=== PATIENT | male | born 1960 | race Caucasian/White ===

== ENCOUNTER 2020-02-01 14:16 | Outpatient (CLI) | payer OTHER, SELFPAY ==
--- NOTE | 2020-02-01 14:21 | ECHO_ITS ---
Patient Info Name: Prieto Ivan Age: 59 years : 1960 Gender: Male Ht: 72 in Wt: 260 lbs BSA: 2.49 m2 HR: 66 bpm BP: 181 / 91 mmHg Technical Quality: Good Exam Date: 02/01/2020 3:30 PM Exam Location: [facility] Patient Status: Outpatient Admit Date: 02/01/2020 Staff Ordering Physician: Huan Holloway DO Pipe Fitter Marine: Nithin Hendricks, ANTHONY, RT Attending Provider: Huan Holloway DO Referring Physician: Jewel JEAN; Exam Type: CA echo dop color flow w con Study Info Indications R06.00 - Dyspnea, unspecified Complete two-dimensional, color flow and Doppler transthoracic echocardiogram is performed. Strain analysis performed. Summary 1. Complete two-dimensional, color flow and Doppler transthoracic echocardiogram is performed. 2. Left ventricular chamber dimension is normal. 3. Left ventricular systolic function is normal, estimated at 60-65%. 4. There is mildly increased left ventricular wall thickness. 5. The left ventricular diastolic function is grade I diastolic dysfunction. 6. E/e' 10 is mildly elevated. 7. Global longitudinal strain is mildly abnormal at -16.5%. 8. No pulmonary hypertension, estimated pulmonary arterial systolic pressure is 36 mmHg. Left Ventricle E/e' 10 is mildly elevated. Global longitudinal strain is mildly abnormal at -16.5%. Left ventricular chamber dimension is normal. Left ventricular systolic function is normal, estimated at 60-65%. There is mildly increased left ventricular wall thickness. The left ventricular diastolic function is grade I diastolic dysfunction. Right Ventricle Right ventricular chamber dimension is normal. Right ventricular systolic function is normal. Left Atria Left atrial chamber dimension is normal. Right Atria Right atrial chamber dimension is normal. Aortic Valve The aortic valve is trileaflet. There is no aortic valve stenosis. There is no aortic valve regurgitation. Pulmonic Valve There is no pulmonic regurgitation. Mitral Valve There is no mitral valve stenosis. There is no mitral valve regurgitation. Tricuspid Valve There is no tricuspid valve regurgitation. No pulmonary hypertension, estimated pulmonary arterial systolic pressure is 36 mmHg. Pericardium/Pleural There is no pericardial effusion. Inferior Vena Cava Normal inferior vena cava with >50% collapse upon inspiration consistent with normal right atrial pressure, 5 mmHg. Aorta The aortic root size at the sinus of Valsalva is normal. Left Ventricular Outflow Tract Name Value Normal LVOT 2D LVOT Diameter 2.21 cm LVOT Doppler LVOT Peak Velocity 116.79 cm/s LVOT Peak Gradient 5 mmHg LVOT Mean Gradient 3 mmHg LVOT VTI 24.94 cm LVOT VTI/AV VTI Ratio 0.89 LVOT Stroke Volume 95.98 ml Mitral Valve Name Value Normal
== END 2020-02-01 14:17 | disposition home or self-care (01) ==
LOC: CHSIMG 14:17
PROVIDERS: PCP Internal Medicine; Visit Provider Internal Medicine Cardiovascular Disease
DX: R06.00 Dyspnea, unspecified (principal)
CPT/HCPCS: C8929

== ENCOUNTER 2020-04-18 10:47 | Outpatient (CLI) | payer OTHER, SELFPAY ==
[2020-04-19 19:17] LABS: SARS-CoV-2 RNA PCR Negative
== END 2020-04-18 10:48 | disposition home or self-care (01) ==
LOC: CHSLAB 10:50
PROVIDERS: PCP Internal Medicine
DX: M18.0 Bilateral primary osteoarthritis of first carpometacarpal joints (principal); Z20.822 Contact with and (suspected) exposure to COVID-19
CPT/HCPCS: C9803; U0003; U0005

== ENCOUNTER 2020-08-02 09:03 | Outpatient (CLI) | payer OTHER, SELFPAY ==
[2020-08-02 09:53] LABS: SARS-CoV-2 RNA PCR Negative (Negative)
== END 2020-08-02 09:04 | disposition home or self-care (01) ==
LOC: CHSLAB 09:07
PROVIDERS: PCP Internal Medicine
DX: M18.12 Unilateral primary osteoarthritis of first carpometacarpal joint, left hand (principal); Z20.822 Contact with and (suspected) exposure to COVID-19
CPT/HCPCS: C9803; U0003; U0005

== ENCOUNTER 2021-01-15 13:09 | Outpatient (RCR) | payer OTHER, SELFPAY ==
--- NOTE | 2021-01-15 14:02 | PTOPEVAL ---
Thank you for referring Prieto Ivan to [facility] The patient is scheduled to be seen for therapy? ____x/week for ___ weeks. Please review, sign, date and return this plan of care KENNY. I agree with and certify that the following plan of care is medically necessary. Referring Physician Date Admitting Provider: Attending Provider: Nurys Jacobsen, PIPE BLANKS CUT OFF SAW OPERATOR Referring Provider: *PT Outpatient Evaluation Start: 01/15/21 13:13 Freq: Status: Active Protocol: Document 01/15/21 13:14 [facility] (Rec: 01/15/21 14:01 [facility] [id number]) Therapy Assessment Status Assessment Status Assessment Status Evaluation Evaluation Information Problem Diagnosis lumbago and neck pain Onset 12/20/20 Additional Evaluation Detail oswestry = 37% functionally declined Subjective Information patient reports he has been Query Text:As Reported By Patient/ having pain in the lower back Family and down bilateral buttocks and into the posterior thighs for about 3 weeks. he reports the pain began after returning to work from some time off. 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 he reports he has increased pain with walking and steps. he reports lifting also causes increased pain in the back. patient reports he had injections to the lower back yesterday. he reports he does have some stiffness in the neck. Prior Level of Function Comments Additional Prior Level of Function patient reports prior to 2-3 Comments weeks ago he was having intermittent tightness, but no constant pain, and was not as painful as it is currently. Pain Assessment Timing of Pain Assessment Timing of Pain Assessment Assessment Pain Scale Pain Scale Used Numeric (1 - 10) Self Report Pain Assessment Lower Back Reported Pain Level 4 Pain Radiation Left Leg,Right Leg Pain Frequency Acute,Continuous Pain Score Pain Score 4: Self Report Additional Pain Score Comments patient reports no pain, but tightness in the cervical spine. Interventions Used Interventions Used By Clinicians Activity or ADL's,Education, Exercise Cervical and Lumbar ROM Cervical R
== END 2021-01-15 14:09 | disposition home or self-care (01) ==
LOC: CHSPT 13:09
PROVIDERS: PCP Nurse Practitioner Family; Visit Provider Nurse Practitioner Family
DX: M54.50 Low back pain, unspecified (principal); M54.2 Cervicalgia
CPT/HCPCS: 97014; 97110; 97161; G0283

== ENCOUNTER 2021-05-20 12:16 | Outpatient (CLI) | payer OTHER, SELFPAY ==
[2021-05-20 13:09] LABS: SARS-CoV-2 RNA PCR Negative (Negative)
== END 2021-05-20 12:17 | disposition home or self-care (01) ==
LOC: CHSLAB 12:19
PROVIDERS: Visit Provider Orthopaedic Surgery Orthopaedic Surgery of the Spine
DX: Z01.818 Encounter for other preprocedural examination (principal); Z20.822 Contact with and (suspected) exposure to COVID-19
CPT/HCPCS: C9803; U0003; U0005

== ENCOUNTER 2022-01-23 08:17 | Outpatient (RCR) | payer OTHER, SELFPAY ==
--- NOTE | 2022-01-23 08:07 | PTOPEVAL1 ---
Assessment and note entered by JT File, PT Evaluation Information Assessment Status Evaluation Diagnosis s/p L OA Onset 10/21/21 Subjective Information patient reports he is on a 5lb lifting restriciton for 3 months from surgery. he reports he is having difficulty reaching behind his back, and turning the steering wheel across his body in the L arm. he reports he also reports he feels weak in the L arm with lifting and lowering to the side . he reports the side lifting is accompanied by pain in the L shoulder. patient reports the R shoulder was replaced prior to the L shoulder, and he reports he has no issues. Reported Pain Level Pain Score 2: Self Report Assessment PT Clinical Summary mr. groves presents to skilled PT services 3 months post L TSA. he continues to present with weakness and decreased rom in the L shoulder compared to the R side which has also had a TSA. he is currently under post op restrictions for no L shoulder extension or IR. however, he is allowed to perform AROM and strengthening. he would do well to participate in skilled PT services to improve his objective/functional deficits and improve his quality of life/ability to perform routine daily activities. Plan of Care Interventions Electrical Stimulation,Hot Pack/Cold Pack,Manual Therapy,Neuro Re-education,Patient/Caregiver Educati,Therapeutic Activities,Therapeutic Exercise PT Services Indicated Yes Treatment Frequency and 2x weekly for 10 visits Duration These treatments will address the objective and functional deficits as defined above. The patient will be advanced safely and appropriately in order for the patient to progress towards his/her prior level of function. Additional exercises will be introduced and as well as a comprehensive home exercise program upon discharge, if needed, ?to ensure carryover of functional gains achieved in the clinic. This treatment plan has been reviewed and agreement upon by the patient.
--- NOTE | 2022-01-29 14:13 | PCPTNOTE ---
01/29/22 To Whom It May Concern: Range of motion and strength measurements for Prieto FioreSrikanth Ivan, 60 Shoulder Active Range of Motion: Flexion: Left 145 degrees, Right 156 degrees Abduction: Left 120 degrees, Right 131 degrees External Rotation: Left 70 degrees, Right 68 degrees Internal Rotation: Left not tested due to post op precautions, Right 67 degrees Extension: Left not tested due to post op precautions, Right 60 degrees Shoulder Strength: Flexion: Left 4+/5, Right 4+/5 Abduction: Left 4+/5, Right 4+/5 External Rotation: Left 4/5, Right 4+/5 Internal Rotation: Left (isometric) 4/5, Right 4+/5 Adduction: Left 4+/5, Right 5/5 Extension: Left (isometric) 4/5, Right 5/5
--- NOTE | 2022-02-05 09:08 | PCPTNOTE ---
02/05/22 To Whom It May Concern: Range of motion and strength measurements for Prieto Casimiro Ivan, 60 Shoulder Active Range of Motion (seated): Flexion: Left 145 degrees Abduction: Left 130 degrees External Rotation: Left 70 degrees (at 90 degrees abduction) Internal Rotation: Not tested due to post op precautions Extension: Not tested due to post op precautions Shoulder Strength (Manual Muscle Test): Flexion: Left 4/5, Right 4+/5 Abduction: Left 4-/5, Right 5/5 External Rotation: Left 4-/5, Right 4+/5 Internal Rotation and Extension: Not tested due to post op precautions
--- NOTE | 2022-02-24 09:57 | PTOPPROG ---
Assessment and note entered by Nilda Martin DPT Evaluation Information Assessment Status Progress Diagnosis s/p L OA Onset 10/21/21 Subjective Information Pt reports that his range of motion feels a lot better but that his strength is very limited, as he struggles even to twist a lid off of a jar. He is concerned about returning to work as at work he needs to perform a lot of extension and internal rotation based activities, and he doesn't feel very strong with these motions yet. He also reports he is concerned as he has to lift heavy weights (up to 70 lbs). Pt reports that he sees his MD on 03/18. Assessment PT Clinical Summary Pt presents to PT with significant improvements in strength and range of motion since his last evaluation. While objectively his strength is improving, he is still limited functionally especially as needed for his job. The patient might not be appropriate for returning to work yet as he is still limited functionally. He will benefit from additional skilled PT to further facilitate symptom relief and increase strength objectively and functionally as needed for work and recreational activities. Plan of Care PT Services Indicated Yes Treatment Frequency and 2x week for 6 more visits Duration These treatments will address the objective and functional deficits as defined above. The patient will be advanced safely and appropriately in order for the patient to progress towards his/her prior level of function. Additional exercises will be introduced and as well as a comprehensive home exercise program upon discharge, if needed, ?to ensure carryover of functional gains achieved in the clinic. This treatment plan has been reviewed and agreement upon by the patient.
--- NOTE | 2022-06-02 13:20 | PCPTNOTE ---
Patient was seen for 13 visits from 01/23/22-03/12/22. Patient did not return for remaining follow ups on POC and is being discharged at this time.
== END 2022-03-12 23:59 | disposition home or self-care (01) ==
LOC: CHSPT 08:17
PROVIDERS: Visit Provider Orthopaedic Surgery Orthopaedic Surgery of the Spine
DX: Z48.89 Encounter for other specified surgical aftercare (principal); Z96.60 Presence of unspecified orthopedic joint implant
CPT/HCPCS: 97014; 97110; 97161; G0283

== ENCOUNTER 2022-10-20 09:33 | Outpatient (CLI) | payer OTHER, SELFPAY ==
--- NOTE | 2022-10-20 11:00 | NEURO_ITS ---
Impression: # Complains of numbness of feet. History of bilateral knee surgeries. 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 # Abnormal needle/EMG. Nerve Conduction Studies Anti Sensory Summary Table Stim Site NR Peak (ms) P-T Amp (?V) Site1 Site2 Delta-P (ms) Dist (cm) Ryan (m/s) Left Sup Fibular Anti Sensory (Ant Lat Mall) NO RESPONSE 14 cm NR 14 cm Ant Lat Mall 16.0 Right Sup Fibular Anti Sensory (Ant Lat Mall) NO RESPONSE 14 cm NR 14 cm Ant Lat Mall 16.0 Left Sural Anti Sensory (Lat Mall) NO RESPONSE Calf NR Calf Lat Mall 16.0 Right Sural Anti Sensory (Lat Mall) NO RESPONSE Calf NR Calf Lat Mall 16.0 Motor Summary Table Stim Site NR Onset (ms) O-P Amp (mV) Site1 Site2 Delta-0 (ms) Dist (cm) Ryan (m/s) Left Peroneal Motor (Vastus Med) Ankle 5.5 0.9 Popit Ankle 13.6 44.0 32 Popit 19.1 0.9 Right Peroneal Motor (Vastus Med) Ankle 4.9 1.4 Popit Ankle 10.3 39.0 38 Popit 15.2 1.3 Left Tibial Motor (Abd Yi Brev) Ankle 5.2 0.1 Knee Ankle 14.0 46.0 33 Knee 19.2 0.3 Right Tibial Motor (Abd Yi Brev) NO RESPONSE Ankle NR Knee Ankle 0.0 Knee NR F Wave Studies NR F-Lat (ms) L-R F-Lat (ms) Left Peroneal (Mrkrs) (EDB) 63.13 0.35 Right Peroneal (Mrkrs) (EDB) 63.48 0.35 Left Tibial (Mrkrs) (Abd Hallucis) 62.48 Right Tibial (Mrkrs) (Abd Hallucis) NO RESPONSE NR EMG Side Muscle Nerve Root Ins Act Fibs Amp Dur Recrt Comment Right AntTibialis Dp Br Fibular L4-5 Nml Nml Nml >12ms Reduced Right Gastroc Tibial S1-2 Nml Nml Nml >12ms Reduced Right Fibularis Long Sup Br Fibular L5-S1 Nml Nml Nml >12ms Reduced Right Flex Dig Long Tibial L5-S2 Nml Nml Nml >12ms Reduced Right Ext Dig Brev Dp Br Fibular L5, S1 Nml Nml Nml >12ms Reduced Left AntTibialis Dp Br Fibular L4-5 Nml Nml Nml >12ms Reduced Left Gastroc Tibial S1-2 Nml Nml Nml >12ms Reduced Left Fibularis Long Sup Br Fibular L5-S1 Nml Nml Nml >12ms Reduced Left Flex Dig Long Tibial L5-S2 Nml Nml Nml >12ms Reduced Left Ext Dig Brev Dp Br Fibular L5, S1 Nml Nml Nml >12ms Reduced Left QuadratusFem QuadFemoris L4-5, S1 Nml Nml Nml >12ms Reduced Right QuadratusFem QuadFemoris L4-5, S1 Nml Nml Nml >12ms Reduced MTDD
== END 2022-10-20 09:34 | disposition home or self-care (01) ==
LOC: ANHNEURO 09:35
PROVIDERS: Visit Provider Internal Medicine
DX: M54.16 Radiculopathy, lumbar region (principal); R20.0 Anesthesia of skin; G62.89 Other specified polyneuropathies; R94.131 Abnormal electromyogram [EMG]; Z98.890 Other specified postprocedural states
CPT/HCPCS: 95886; 95910

== ENCOUNTER → 2022-10-30 08:19 | Outpatient (CLI) | payer OTHER, SELFPAY ==
--- NOTE | ~2022-10-30 | MR_ITS ---
EXAMINATION: MR lumbar spine wo con DATE: 10/30/2022 09:02 INDICATION: Low back pain TECHNIQUE: Magnetic resonance imaging (MRI) of the lumbar spine was performed without intravenous con trast. Sequences included sagittal T2-weighted FSE, sagittal T2-weighted FS FSE, sagittal T1-weighted FSE, and axial T2-weighted FSE. COMPARISON: 05/06/2011 FINDINGS: Alignment is normal. Lumbar vertebral body heights are normal. Minimal likely physiologic anterior we dging at T12. Schmorl's nodes at the endplates on either side of the T11-T12 disc space. Prominent T1 and T2 hyperintense hemangioma at L2. Marrow signal is otherwise normal. Disc desiccation and mild d isc height loss at L1-L2 through L3-L4 and moderate disc height loss at L4-L5. The conus medullaris t erminates at L1. There is normal signal in the caudal spinal cord. Paravertebral soft tissues are unr emarkable. The following disc levels are specifically discussed: T12-L1: The disc does not extend beyond the endplate margin. There is mild left and moderate right fa cet joint osteoarthritis. There is no neural foraminal stenosis. There is no central canal stenosis. L1-L2: Disc is bulging with annular fissure. There is mild to moderate bilateral facet joint osteoart hritis. There is mild bilateral neural foraminal stenosis. There is mild central canal stenosis. L2-L3: Disc is bulging with annular fissure. There is moderate bilateral facet joint osteoarthritis. There is mild bilateral neural foraminal stenosis. There is mild central canal stenosis. L3-L4: Disc is bulging with superimposed annular fissure and central disc extrusion with disc materia l extending 4 mm cephalad to the level of the inferior endplate of L3. There is hypertrophy of the li gamentum flavum. There is severe bilateral facet joint osteoarthritis. There is moderate bilateral n eural foraminal stenosis. There is moderate to severe central canal stenosis with the cecal sac measu ring 506 mm AP in the mid sagittal plane and with minimal CSF signal interspersed among the clustered nerve roots. L4-L5: Disc is bulging with annular fissure. There is moderate right and moderate to severe left face t joint osteoarthritis. There is moderate bilateral neural foraminal stenosis. There is mild central canal stenosis. L5-S1: There are bilateral small foraminal zone disc protrusions. There is moderate bilateral facet j oint osteoarthritis. There is mild bilateral neural foraminal stenosis. There is no central canal cony nosis. IMPRESSION: 1. Moderate lumbar spondylosis most notable for disc extrusion, ligamentum flavum hypertrophy and sev ere bilateral facet osteoarthritis at L3-L4 contributing to moderate bilateral neural foraminal steno sis and moderate to severe central canal stenosis. Reviewed, dictated and finalized at location B. IMPRESSION: 1. Moderate lumbar spondylosis most notable for disc extrusion, ligamentum flav um hypertrophy and severe bilateral facet osteoarthritis at L3-L4 contributing to moderate bilateral neural foraminal stenosis and moderate to severe central canal stenosis.
== END ==
PROVIDERS: PCP Internal Medicine; Visit Provider Internal Medicine
DX: M47.896 Other spondylosis, lumbar region (principal)
CPT/HCPCS: 72148

== ENCOUNTER → 2022-11-24 09:59 | Outpatient (CLI) | payer OTHER, SELFPAY ==
--- NOTE | ~2022-11-24 | CT_ITS ---
EXAMINATION: CT abdomen pelvis w con DATE: 11/24/2022 10:38 INDICATION: Left lower quadrant abdominal pain. Abnormal liver function tests. TECHNIQUE: Computed tomography (CT) of the abdomen and pelvis was performed with 100 mL Omnipaque 350 intravenous contrast. Automated exposure control and iterative reconstruction technique were employe d. The dose-length product was 1195.78 mGy-cm. COMPARISON: None. FINDINGS: The visualized portions of the lung bases demonstrate reticular opacities and parenchymal c alcifications in the posterior costophrenic angles. No pleural effusion. The heart size is normal. No pericardial effusion. There are coronary artery calcifications. There is diffuse hepatic steatosis. The gallbladder, spleen, pancreas, adrenal glands, are normal. There are cysts in the kidneys measuri ng up to 14 mm on the right. There is diverticulosis of the colon without evidence of diverticulitis. There are no dilated loops of bowel. The appendix is normal. There is mild aortic atherosclerosis. T here are no pathologically enlarged lymph nodes. There is no free intraperitoneal fluid. There is mod erate thoracic spondylosis and mild lumbar spondylosis. There is mild chronic anterior wedging of mul tiple vertebral bodies. IMPRESSION: 1. Diffuse hepatic steatosis. Reviewed, dictated and finalized at location A.
[2022-11-24 10:27] LABS: Estimated Glomerular Filt Rate > 60
== END ==
PROVIDERS: PCP Internal Medicine; Visit Provider Internal Medicine
DX: R10.32 Left lower quadrant pain (principal); R74.8 Abnormal levels of other serum enzymes; K76.0 Fatty (change of) liver, not elsewhere classified
CPT/HCPCS: 74177; Q9967

== ENCOUNTER 2022-11-30 10:22 | Emergency (ER) | payer OTHER, SELFPAY ==
[2022-11-30 10:23] VITALS: BP 163/91; PULSE 89; RESP 20; TEMP 37.1; O2SAT 99
--- NOTE | 2022-11-30 10:49 | ED.GENADULT ---
HPI - General Adult General Chief complaint: Back Pain/Injury Stated complaint: Upper back/neck pain Time Seen by Provider: 11/30/22 10:27 History of Present Illness HPI narrative: 62yo man with diabetes mellitus, presents with neck and back pain with range of motion since coughing for the past 10 days and cleaning out his pawel garage. No fevers or chills. No chest pain. +sore throat and frequent dry coughing. Related Data Home Medications Medication Instructions Recorded Confirmed lisinopril 20 1 tablet PO BID 01/22/20 11/30/22 mg-hydrochlorothiazide 12.5 mg tablet metformin 500 mg tablet 1,000 mg PO BID 07/22/20 11/30/22 alirocumab 75 mg/mL subcutaneous 75 mg subcut Q15D 11/30/22 11/30/22 pen injector (Praluent Pen) amlodipine 10 mg tablet 10 mg PO DAILY 11/30/22 11/30/22 duloxetine 60 mg capsule,delayed 60 mg PO BID 11/30/22 11/30/22 release glimepiride 2 mg tablet 2 mg PO DAILY 11/30/22 11/30/22 zolpidem 10 mg tablet (Ambien) 10 mg PO HS PRN Insomnia 11/30/22 11/30/22 Allergies Allergy/AdvReac Type Severity Reaction Status Date / Time SHELLFISH Allergy Unknown ITCHING Uncoded 11/30/22 10:31 AND TINGLING Review of Systems Review of Systems: All systems reviewed & are unremarkable except as noted in HPI and below Constitutional: Constitutional: Denies chills and Denies fever(s) ENT: Denies dysphagia and Denies dizziness Cardiovascular: Cardiovascular: Denies chest pain Respiratory: Respiratory: Denies chest congestion, Reports cough, Denies dyspnea and Denies wheezing Gastrointestinal: Gastrointestinal: Denies abdominal pain PMFSH Surgical History Surgical History History of hernia surgery History of knee replacement Family History Family History Other Family history of lung cancer Family history of type 2 diabetes mellitus Social History Social History Smoking status: Never smoker Alcohol intake: current Drinks per week: 2 Exam Const: General: healthy appearing and alert Nutritional Appearance: well nourished Eyes: Conjunctivae: conjunctivae normal Resp: Effort & Inspection: normal respiratory effort and not labored Auscultation: clear to auscultation bilaterally Cardio: Rate: regular rate Rhythm: regular rhythm GI: Inspection: non-distended Skin: General skin exam: normal color, no jaundice and no pallor Extrem: General: normal to inspection Course Vital Signs Vital signs: Vital Signs Temperature 37.1 C 11/30/22 10:23 Pulse Rate 89 11/30/22 10:23 Respiratory Rate 11/30/22 10:23 Blood Pressure 163/91 H 11/30/22 10:23 Pulse Oximetry 99 11/30/22 10:23 Oxygen Delivery Room Air 11/30/22 10:23 Temperature 36.7 C 11/30/22 11:22 Pulse Rate 88 11/30/22 11:22 Respiratory Rate 11/30/22 11:22 Blood Pressure 148/83 H 11/30/22 11:22 Pulse Oximetry 98 11/30/22 11:22 Oxygen Delivery Room Air 11/30/22 11:22 Medical Decision Making MDM Narrative Medical decision making narrative: dry cough, neck and back pain DDx acute bronchitis, Acute URI, pharyngitis, muscle strain and spasm, no evidence of meningitis. Vital Signs Vital Signs: Vital Signs Temperature 37.1 C 11/30/22 10:23 Pulse Rate 89 11/30/22 10:23 Respiratory Rate 11/30/22 10:23 Blood Pressure 163/91 H 11/30/22 10:23 Pulse Oximetry 99 11/30/22 10:23 Oxygen Delivery Room Air 11/30/22 10:23 Temperature 36.7 C 11/30/22 11:22 Pulse Rate 88 11/30/22 11:22 Respiratory Rate 11/30/22 11:22 Blood Pressure 148/83 H 11/30/22 11:22 Pulse Oximetry 98 11/30/22 11:22 Oxygen Delivery Room Air 11/30/22 11:22 Discharge Plan Discharge Clinical Impression: Strain of muscle, fascia and tendon at neck level, initial encounter
[2022-11-30] MEDS: KETOROLAC (*BKC) 60 MG/2 ML VIAL IM (10:57)
[2022-11-30] MEDS: methocarbamoL 750 MG TABLET 1500 MG PO (10:57)
[2022-11-30] MEDS: guaiFENesin/DEXTROMETHORPHAN 5 ML UDC 20 ML PO (10:58)
[2022-11-30 11:22] VITALS: BP 148/83; PULSE 88; RESP 20; TEMP 36.7; O2SAT 98
== END 2022-11-30 11:25 | disposition home or self-care (01) ==
LOC: CHSED 11:07
PROVIDERS: Emergency Provider Emergency Medicine; PCP Internal Medicine
DX: S16.1XXA Strain of muscle, fascia and tendon at neck level, initial encounter (principal); J20.9 Acute bronchitis, unspecified; E11.9 Type 2 diabetes mellitus without complications; Z79.899 Other long term (current) drug therapy; Z79.84 Long term (current) use of oral hypoglycemic drugs; X58.XXXA Exposure to other specified factors, initial encounter
CPT/HCPCS: 96372; 99283; A9270; J1885

== ENCOUNTER 2022-12-09 09:04 | Outpatient (CLI) | payer OTHER, SELFPAY ==
--- NOTE | ~2022-12-09 | XR_ITS ---
EXAMINATION: XR chest 2V DATE: 12/09/2022 09:21 INDICATION: Cough TECHNIQUE: Frontal and lateral views of the chest are obtained COMPARISON: 06/28/2014 FINDINGS: The lungs are free of acute opacities. No pleural effusion or pneumothorax. The cardiomedia stinal silhouette is normal. There is moderate thoracic spondylosis. There are bilateral shoulder art hroplasties. IMPRESSION: 1. No acute cardiopulmonary abnormality. Reviewed, dictated and finalized at location B.
== END 2022-12-09 09:05 | disposition home or self-care (01) ==
LOC: CHSIMG 09:06
PROVIDERS: PCP Internal Medicine; Visit Provider Internal Medicine
DX: R05.9 Cough, unspecified (principal)
CPT/HCPCS: 71046

== ENCOUNTER 2023-02-23 09:38 | Outpatient (CLI) | payer OTHER, SELFPAY ==
[2023-02-23 09:57] LABS: Basophils Absolute Auto 0.06 K/mm3 (0.00-0.10); Basophils Percent Auto 0.9 % (0.0-1.0); Eosinophils Absolute Auto 0.34 K/mm3 (0.02-0.50); Hematocrit 43.7 % (40.0-54.0); Hemoglobin 14.6 g/dL (14.0-18.0); Immature Granulocyte Absolute 0.02 K/mm3 (0.00-0.00); Immature Granulocyte Percent A 0.3 % (0.0-0.0); Lymphocytes Absolute Auto 2.37 K/mm3 (1.10-4.50); Lymphocytes Percent Auto 34.6 % (18.0-42.0); Mean Corpuscular HGB Conc 33.4 g/dL (32.0-36.0); Mean Corpuscular Hemoglobin 32.1 pg (27.0-31.0); Mean Platelet Volume 10.2 fl (8.7-11.0); Monocytes Absolute Auto 0.61 K/mm3 (0.10-0.90); Monocytes Percent Auto 8.9 % (2.0-11.0); Neutrophils Absolute Auto 3.5 K/mm3 (1.7-7.2); Neutrophils Percent Auto 50.3 % (50.0-70.0); Platelet Count Result 231 K/mm3 (150-420); Red Blood Count 4.55 M/mm3 (4.70-6.10); Red Cell Distribution Width 12.5 % (11.6-14.4); White Blood Count 6.9 K/mm3 (4.8-10.8)
[2023-02-23 10:11] LABS: Partial Thromboplastin Time 27.6 SEC (23.90-30.70); Prothrombin Time 11.3 Seconds (9.50-12.10)
[2023-02-23 10:13] LABS: Hemoglobin A1C 7.4 % (<5.7)
[2023-02-23 11:00] LABS: Alanine Aminotransferase 44 U/L (16-63); Albumin Level 3.8 g/dL (3.4-5.0); Alkaline Phosphatase 78 U/L (46-116); Anion Gap 6 mmol/L (8-16); Aspartate Amino Transferase 34 U/L (15-37); Bilirubin,Total 0.8 mg/dL (0.00-1.00); Blood Urea Nitrogen 13 mg/dL (7-18); Carbon Dioxide 32 mmol/L (21-32); Chloride 100 mmol/L (98-108); Estimated Glomerular Filt Rate > 60; Glucose 147 mg/dL (70-99); Osmolality Calculated 289 mOsm/kg (285-295); Potassium 4.5 mmol/L (3.5-5.1); Sodium 138 mmol/L (136-145); Total Protein 6.5 g/dL (6.4-8.2); Vitamin B12 612 pg/mL (193-986)
== END 2023-02-23 09:39 | disposition home or self-care (01) ==
LOC: CHSLAB 09:43
PROVIDERS: PCP Internal Medicine
DX: Z01.818 Encounter for other preprocedural examination (principal); G62.9 Polyneuropathy, unspecified; E11.65 Type 2 diabetes mellitus with hyperglycemia
CPT/HCPCS: 36415; 80053; 82607; 83036; 85025; 85610; 85730

== ENCOUNTER 2023-04-06 09:57 | Outpatient (RCR) | payer OTHER, SELFPAY ==
--- NOTE | 2023-04-06 12:39 | OPREHPOC ---
Outpatient Therapy Plan of Care This is a Multidisciplinary Plan of Care that may contain components documented by all disciplines (PT, OT, and ST.) PT Problem 1 PT Problem #1 Knowledge Deficit PT Goal 1 Goal The patient will be independent in a home exercise program to continue after discharge from skilled PT. Target Visit 16 PT Problem 2 PT Problem #2 Pain PT Goal 1 Goal The patient will report no greater than 3/10 low back pain with daily activities. Target Visit 16 PT Problem 3 PT Problem #3 Impaired Range of Motion PT Goal 1 Goal The patient will demonstrate at least 40 degrees of lumbar flexion in order to don/doff shoes. Target Visit 16 PT Problem 4 PT Problem #4 Impaired Strength PT Goal 1 Goal The patient will demonstrate 4/5 strength in bilateral hip flexors, extensors, and abductors in order to improve balance and stair climbing ability. Target Visit 16 PT Problem 5 PT Problem #5 Impaired Functional Mobil PT Goal 1 Goal The patient will demonstrate 30% or less self perceived disability per the Oswestry Back index. The patient will demonstrate the ability to lift 20# from floor to waist to improve lifting capabilities for daily activities. Target Visit 16
--- NOTE | 2023-04-06 12:39 | PTOPEVAL1 ---
Assessment and note entered by Sharmila Garcia, PT Evaluation Information Assessment Status Evaluation Diagnosis s/p L3-4 TLIF Onset 03/01/23 Subjective Information Prieto Ivan reports he had back surgery on 02/11 for a L3-4 fusion. He notes tightness around the incision and low back pain. He denies numbness and tingling at this time. He is on an 8# lifting restriction. He notes difficulty bending, walking, lifting, and going up and down stairs. He notes feeling unbalanced when he goes up and down stairs. He will see his surgeon again on 05/05. Reported Pain Level Pain Score 5: Self Report Assessment PT Clinical Summary Prieto Ivan presents 5 weeks s/p L3-4 TLIF. He is reporting difficulty with balance, lifting, bending, walking, and stairs. He objectively demonstrates decreased core and bilateral hip strength, decreased lumbar AROM, altered gait, decreased balance, and decreased functional abilities. He will benefit from skilled PT to address these limitations. Plan of Care Interventions Electrical Stimulation,Hot Pack/Cold Pack,Manual Therapy,Neuro Re-education,Patient/Caregiver Educati,Therapeutic Activities,Therapeutic Exercise PT Services Indicated Yes Treatment Frequency and 2 times a week for 16 visits Duration These treatments will address the objective and functional deficits as defined above. The patient will be advanced safely and appropriately in order for the patient to progress towards his/her prior level of function. Additional exercises will be introduced and as well as a comprehensive home exercise program upon discharge, if needed, ?to ensure carryover of functional gains achieved in the clinic. This treatment plan has been reviewed and agreement upon by the patient.
--- NOTE | 2023-05-04 13:24 | OPREHPOC ---
Outpatient Therapy Plan of Care This is a Multidisciplinary Plan of Care that may contain components documented by all disciplines (PT, OT, and ST.) PT Problem 1 PT Problem #1 Knowledge Deficit PT Goal 1 Goal The patient will be independent in a home exercise program to continue after discharge from skilled PT. Target Visit 22 Progress Partially Met Comment met to date, will continue to progress as program is progressed PT Problem 2 PT Problem #2 Pain PT Goal 1 Goal The patient will report no greater than 3/10 low back pain with daily activities. Target Visit 22 Progress Not Met Comment continue PT Problem 3 PT Problem #3 Impaired Range of Motion PT Goal 1 Goal The patient will demonstrate at least 40 degrees of lumbar flexion in order to don/doff shoes. Target Visit 22 Progress Not Met Comment continue PT Problem 4 PT Problem #4 Impaired Strength PT Goal 1 Goal The patient will demonstrate 4/5 strength in bilateral hip flexors, extensors, and abductors in order to improve balance and stair climbing ability. Target Visit 22 Progress Partially Met Comment continue PT Problem 5 PT Problem #5 Impaired Functional Mobil PT Goal 1 Goal The patient will demonstrate 30% or less self perceived disability per the Oswestry Back index. The patient will demonstrate the ability to lift 20# from floor to waist to improve lifting capabilities for daily activities. Target Visit 22 Progress Not Met Comment continue
--- NOTE | 2023-05-04 13:24 | PTOPPROG ---
Assessment and note entered by Sharmila Garcia, PT Evaluation Information Assessment Status Progress Diagnosis s/p L3-4 TLIF Onset 03/01/23 Subjective Information Prieto Ivan reports he continues to have lower back pain and tightness but it is better overall since having surgery. He continues to follow his 8 # lifting restriction but is anxious to be able to do more. 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 He also notes some discomfort with walking/ grocery shopping for an hour. He has not been working out at the gym yet either. Assessment PT Clinical Summary Prieto Ivan has completed 9 skilled PT visits following a L3-4 TLIF. He is reporting less pain and improved mobility overall but he still has pain with prolonged walking and feels unsteady going down stairs. 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 He demonstrates improved lumbar AROM, improved balance, and improved core strength. He continues to have deficits in lumbar ROM, core strength, dynamic balance, and endurance. He will continue to benefit from skilled PT to further address ongoing limitations and pain. Plan of Care Interventions Electrical Stimulation,Hot Pack/Cold Pack,Patient/ Caregiver Educati,Therapeutic Activities, Therapeutic Exercise PT Services Indicated Yes Treatment Frequency and Continue skilled PT 2 times a week for 12 Duration additional visits These treatments will address the objective and functional deficits as defined above. The patient will be advanced safely and appropriately in order for the patient to progress towards his/her prior level of function. Additional exercises will be introduced and as well as a comprehensive home exercise program upon discharge, if needed, ?to ensure carryover of functional gains achieved in the clinic. This treatment plan has been reviewed and agreement upon by the patient.
--- NOTE | 2023-05-27 11:55 | OPREHPOC ---
Outpatient Therapy Plan of Care This is a Multidisciplinary Plan of Care that may contain components documented by all disciplines (PT, OT, and ST.) PT Problem 1 PT Problem #1 Knowledge Deficit PT Goal 1 Goal The patient will be independent in a home exercise program to continue after discharge from skilled PT. Target Visit 22 Progress Met PT Problem 2 PT Problem #2 Pain PT Goal 1 Goal The patient will report no greater than 3/10 low back pain with daily activities. Target Visit 22 Progress Partially Met PT Problem 3 PT Problem #3 Impaired Range of Motion PT Goal 1 Goal The patient will demonstrate at least 40 degrees of lumbar flexion in order to don/doff shoes. Target Visit 22 Progress Met PT Problem 4 PT Problem #4 Impaired Strength PT Goal 1 Goal The patient will demonstrate 4/5 strength in bilateral hip flexors, extensors, and abductors in order to improve balance and stair climbing ability. Target Visit 22 Progress Met PT Problem 5 PT Problem #5 Impaired Functional Mobil PT Goal 1 Goal The patient will demonstrate 30% or less self perceived disability per the Oswestry Back index. -progress towards The patient will demonstrate the ability to lift 20# from floor to waist to improve lifting capabilities for daily activities. -met Target Visit 22 Progress Partially Met
--- NOTE | 2023-05-27 11:56 | PTOPDC ---
Assessment and note entered by Sharmila Garcia, PT Evaluation Information Assessment Status Discharge Diagnosis s/p L3-4 TLIF Onset 03/01/23 Subjective Information Prieto Ivan reports his back is stiff and pain lingers around 4/10. He has started going back to the gym and is lifting light weights without difficulty. He denies difficulty with his daily activities. He will see his surgeon again on . Reported Pain Level Pain Score 4: Self Report Assessment PT Clinical Summary Prieto Ivan has completed 16 skilled PT visits since undergoing a L3-4 TLIF. He is reporting no difficulty with daily activities and he has started working out at gym with light weights. He objectively demonstrates improved lumbar AROM, improved core and hip strength, and improved gait. He does still have mild deficits in strength however, he is independent in a home exercise program to continue. He will be discharged from skilled PT. Plan of Care PT Services Indicated Yes
== END 2023-05-27 13:05 | disposition home or self-care (01) ==
LOC: CHSPT 09:57
DX: Z47.89 Encounter for other orthopedic aftercare (principal); Z98.1 Arthrodesis status
CPT/HCPCS: 97014; 97110; 97161; 97530; 97750; G0283

== ENCOUNTER 2023-04-22 14:22 | Emergency (ER) | payer OTHER, SELFPAY ==
[2023-04-22 14:30] VITALS: BP 155/82; PULSE 102; RESP 18; TEMP 36.4; O2SAT 98
[2023-04-22 14:31] VITALS: BP 155/82; PULSE 102; RESP 18; TEMP 36.4; O2SAT 98
--- NOTE | 2023-04-22 14:40 | ED.WOUNDLAC ---
HPI - Wound/Laceration General Chief Complaint: Wound/Laceration Stated Complaint: left finger lac Time Seen by Provider: 04/22/23 14:30 Source: patient Mode of arrival: ambulatory Limitations: no limitations History of Present Illness HPI narrative: this is a 62-year-old male that presents with a laceration to his left index finger that occurred about an hour so ago while doing woodworking at home is up-to-date with his tetanus current not bleeding , with no numbness or tingling has good range of motion. Onset (ago): hour(s) Location: other Extremity Location: Left: wrist ( flap laceration left anterior index finger) Place: home Patient tetanus UTD: Yes Context: accidental Associated symptoms: none Related Data Home Medications Medication Instructions Recorded Confirmed lisinopril 20 1 tablet PO BID 01/22/20 04/22/23 mg-hydrochlorothiazide 12.5 mg tablet metformin 500 mg tablet 1,000 mg PO BID 07/22/20 04/22/23 alirocumab 75 mg/mL subcutaneous 75 mg subcut Q15D 11/30/22 04/22/23 pen injector (Praluent Pen) amlodipine 10 mg tablet 10 mg PO DAILY 11/30/22 04/22/23 duloxetine 60 mg capsule,delayed 60 mg PO BID 11/30/22 04/22/23 release glimepiride 2 mg tablet 2 mg PO DAILY 11/30/22 04/22/23 Allergies Allergy/AdvReac Type Severity Reaction Status Date / Time SHELLFISH Allergy Unknown ITCHING Uncoded 01/04/23 09:24 AND TINGLING Review of Systems Review of Systems: All systems reviewed & are unremarkable except as noted in HPI and below PMFSH Past Medical History Medical History Colon cancer screening Diarrhea Diverticula of intestine LLQ abdominal pain Surgical History Surgical History History of hernia surgery History of knee replacement Family History Family History Other Family history of lung cancer Family history of type 2 diabetes mellitus Social History Social History Smoking status: Never smoker Alcohol intake: current Drinks per week: 2 Substance use: never Substance use type: does not use Exam Const: General: healthy appearing Nutritional Appearance: well nourished Orientation/consciousness: patient oriented x3 Limitations: no limitations Resp: Effort & Inspection: normal respiratory effort Auscultation: clear to auscultation bilaterally Cardio: Rate: regular rate Rhythm: regular rhythm Skin: Other: Flap laceration anterior surface of his left index finger approximately the 3cm in length Course Course Emergency Course: area was evaluated and Dermabond was applied to a flap laceration anterior surface of his left index finger. Patient is up-to-date with his tetanus. Vital Signs Vital signs: Vital Signs Temperature 36.4 C L 04/22/23 14:30 Pulse Rate 102 H 04/22/23 14:30 Respiratory Rate 18 04/22/23 14:30 Blood Pressure 155/82 H 04/22/23 14:30 Pulse Oximetry 98 04/22/23 14:30 Oxygen Delivery Room Air 04/22/23 14:30 Temperature 36.4 C L 04/22/23 14:31 Pulse Rate 102 H 04/22/23 14:31 Respiratory Rate 18 04/22/23 14:31 Blood Pressure 155/82 H 04/22/23 14:31 Pulse Oximetry 98 04/22/23 14:31 Oxygen Delivery Room Air 04/22/23 14:31 Procedures Laceration Laceration 1: Date: 04/22/23 Site: hand Side (If applicable): left Size (cm): 3 Description: flap Depth: simple, single layer Pre-repair: wound explored and irrigated ====== Skin Level ====== Skin layer closed with: dermabond ====== Subcutaneous Layer ====== ====== Muscle Layer ====== ====== Tendon Layer ====== Critical Care Time Critical Care Time Critical Care Time: No Discharge Plan Discharge Clinical Impression: Laceration
== END 2023-04-22 14:50 | disposition home or self-care (01) ==
LOC: CHSED 14:47
PROVIDERS: Emergency Provider Emergency Medicine; PCP Internal Medicine
DX: S61.211A Laceration without foreign body of left index finger without damage to nail, initial encounter (principal); Z79.899 Other long term (current) drug therapy; Z79.84 Long term (current) use of oral hypoglycemic drugs; W45.8XXA Other foreign body or object entering through skin, initial encounter; Y92.009 Unspecified place in unspecified non-institutional (private) residence as the place of occurrence of the external cause
CPT/HCPCS: 12002; 99282

== ENCOUNTER 2024-05-22 11:00 | Outpatient (RCR) | payer OTHER, SELFPAY ==
--- NOTE | 2024-05-22 12:16 | PTOPEVAL1 ---
Assessment and note entered by Dru Rust Evaluation Information Assessment Status Evaluation ICD-10 Condition Codes (PT) Pain in right shoulder M25.511,Pain in left shoulder M25.512 Other ICD-10 Condition Codes ( s/p bilateral TSA PT) Onset 02/20/24 Subjective Information Pt. reports that he has been having trouble with both shoulder since about February. He reports that he has developed recent pain and notices that the shoulders are becoming more weak. He states that pain is waking him at night. He reports that he has noticed some numbness through the upper arm as well. He does notices some tightness in the neck as well. He states that opening a jar is getting very tough and has a hard time with lifting objects. He states that his goal for therapy is to reduce his pain and weakness. Reported Pain Level Pain Score 6: Self Report Assessment PT Clinical Summary Pt is a 63 year old male who enters the clinic with bilateral shoulder pain. He presents with generalized u.e. weakness, impaired shoulder ROM and pain on this date. Continued skilled PT is indicated in order to improve these areas to allow the pt. to achieve improved comfort with IADL performance. Plan of Care Interventions Electrical Stimulation,Manual Therapy,Neuro Re- education,Patient/Caregiver Education,Therapeutic Activities,Therapeutic Exercise PT Services Indicated Yes Treatment Frequency and 2x/week x 10 visits Duration These treatments will address the objective and functional deficits as defined above. The patient will be advanced safely and appropriately in order for the patient to progress towards his/her prior level of function. Additional exercises will be introduced and as well as a comprehensive home exercise program upon discharge, if needed, ?to ensure carryover of functional gains achieved in the clinic. This treatment plan has been reviewed and agreement upon by the patient.
--- NOTE | 2024-06-12 07:02 | PCPTNOTE ---
Pt.called and cancelled his scheduled appointment on this date.
== END 2024-08-20 23:59 | disposition home or self-care (01) ==
LOC: CHSPT 11:00
PROVIDERS: PCP Internal Medicine; Visit Provider Orthopaedic Surgery
DX: M25.512 Pain in left shoulder (principal)
CPT/HCPCS: 97014; 97110; 97112; 97140; 97161; G0283

== ENCOUNTER 2024-06-14 10:55 | Outpatient (CLI) | payer OTHER, SELFPAY ==
[2024-06-14 11:14] LABS: Basophils Absolute Auto 0.08 K/mm3 (0.00-0.10); Basophils Percent Auto 0.6 % (0.0-1.0); Eosinophils Absolute Auto 0.05 K/mm3 (0.02-0.50); Eosinophils Percent Auto 0.4 % (1.0-6.0); Hematocrit 47.6 % (40.0-54.0); Hemoglobin 16.1 g/dL (14.0-18.0); Immature Granulocyte Absolute 0.04 K/mm3 (0.00-0.00); Immature Granulocyte Percent A 0.3 % (0.0-0.0); Lymphocytes Absolute Auto 2.75 K/mm3 (1.10-4.50); Lymphocytes Percent Auto 20.6 % (18.0-42.0); Mean Corpuscular HGB Conc 33.8 g/dL (32-36); Mean Corpuscular Hemoglobin 30.9 pg (27.0-31.0); Mean Corpuscular Volume 91.4 fL (78.0-102.0); Mean Platelet Volume 9.9 fl (8.7-11.0); Monocytes Absolute Auto 1.99 K/mm3 (0.10-0.90); Monocytes Percent Auto 14.9 % (2.0-11.0); Neutrophils Absolute Auto 8.43 K/mm3 (1.70-7.20); Neutrophils Percent Auto 63.2 % (50.0-70.0); Platelet Count Result 270 K/mm3 (150-420); Red Blood Count 5.21 M/mm3 (4.70-6.10); Red Cell Distribution Width 12.5 % (11.6-14.4); White Blood Count 13.3 K/mm3 (4.8-10.8)
[2024-06-14 11:38] LABS: Strep Group A RT-PCR NOT DETECTED (Negative)
[2024-06-14 11:50] LABS: Influenza A QL RT-PCR Negative (Negative); Influenza B QL RT-PCR Negative (Negative); SARS-CoV-2 RNA PCR Negative (Negative)
--- OUTSIDE RECORDS SUMMARY | 2024-06-14 12:32 | XMS_ITS | Patient Health Record ---
Author Organization [facility] [employer] Address [address] [place] [address] Care Team Providers Care Plywood Stock Grader Name Role Phone Abdiaziz ZAMBRANO, Mehnaz Primary Care Provider Cele Chinchilla Unavailable [phone] Migration, Provider Unavailable Unavailable Allergies No Known Allergies Reason For Referral No Information Medications Medication SIG (Take, Route, Frequency, Duration) Notes Start Date End Date Status Triamterene-HCTZ 37.5-25 MG Oral for 30 Days Active amLODIPine Besylate 10 MG Oral 08/03/2023 Active Glimepiride 2 MG Oral 08/03/2023 Ac tive PRALUENT PEN 75 mg/mL Subcutaneous *Reorder from [employer] for eRx and Interaction Alerts* 08/03/2023 Not-Taking Gabapentin 300 MG TAKE ONE CAPSULE BY MOUTH THREE TIMES A DAY Active Social History Sex Assigned At : Social History Observation Description Sex Assigned At Male Vital Signs Heart Rate 96 /min 01/06/2024 Height-cm 182.88 cm 01/06/2024 Blood pressure diastolic 81 mm Hg 01/06/2024 Weight-kg 125.46 kg 01/06/2024 Height 72.00 in 01/06/2024 Blood pressure systolic 136 mm Hg 01/06/2024 Weight 276.6 lbs 01/06/2024 BMI 37.51 kg/m2 01/06/2024 Encounters Encounter Location Date Provider Diagnosis [facility] [employer] [address] [place] [address] 08/03/2023 Cele Dooley Other specified anxiety disorders F41.8 and Primary insomnia F51.01 [facility] [employer] [facility] [address] [place] [address] 01/06/2024 Thena Soumya Primary insomnia F51.01 and Other specified anxiety disorders F41.8 [place] [address] [facility] [address] [facility] [address] [place] [address] 04/21/2024 Thena Soumya [place] [address] [facility] [address] [address] 08/07/2023 Provider Migration [address] [address] 08/08/2023 Provider Migration Assessments Encounter Date Diagnosis (ICD Code) Assessment Notes Treatment Notes Treatment Clinical Notes Section Notes 08/03/2023 Other specified anxiety disorders (ICD-10 - F41.8) 08/03/2023 Primary insomnia (ICD-10 - F51.01) 01/06/2024 Other specified anxiety disorders (ICD-10 - F41.8) 01/06/2024 Primary insomnia (ICD-10 - F51.01) Plan Of Treatment No Information Insurance Providers Payer Name Payer Address Payer Phone Subscriber Number Group Number Insured Name Patient Relationship to Insured Coverage Start Date Coverage End Date [facility] [address] [address] [place] [address] [id number] Nu [id number] GAUDENCIO LESTER Spouse - patient is the spouse of the insured Medical (General) History Medical History History ICD Code Problems: Mixed anxiety and depressive d isorder Opioid withdrawal Primary insomnia , Surgical History Surgery Date(Month/Year) Other
--- OUTSIDE RECORDS SUMMARY | 2024-06-14 12:32 | XMS_ITS ---
Author Organization [facility] [employer] Address [address] [place] [address] Care Team Providers Care Psychiatry Resident Name Role Phone Abdiaziz ZAMBRANO, [facility] Primary Care Provider Cele Chinchilla Unavailable [phone] Allergies No Known Allergies REASON FOR VISIT follow up visit, insomnia, anxiety Medications Medication SIG (Take, Route, Frequency, Duration) Notes Start Date End Date Status Gabapentin 300 MG 1 capsule Oral three times a day for 90 days Active amLODIPine Besylate 10 MG Oral 08/03/2023 Active Glimepiride 2 MG Oral 08/03/2023 Ac tive PRALUENT PEN 75 mg/mL Subcutaneous *Reorder from [facility] for eRx and Interaction Alerts* 08/03/2023 Not-Taking Triamterene-HCTZ 37.5-25 MG Oral for 30 Days Active Social History Sex Assigned At : Social History Observation Description Sex Assigned At Male Vital Signs Blood pressure systolic 136 mm Hg 01/06/20 24 Blood pressure diastolic 81 mm Hg 024 Heart Rate 96 /min 01/06/2024 Height 72.00 in 01/06/2024 Weight 276.6 lbs 01/06/2024 BMI 37.51 kg/m2 01/06/2024 Height-cm 182.88 cm 01/06/2024 Weight-kg 125.46 kg 01/06/2024 Encounters Encounter Location Date Provider Diagnosis [facility] [address] [place] [address] 01/06/2024 Cele Dubois Primary insomnia F51.01 and Other specified anxiety disorders F41.8 Assessments Encounter Date Diagnosis (ICD Code) Assessment Notes Treatment Notes Treatment Clinical Notes Section Notes 01/06/2024 Primary insomnia (ICD-10 - F51.01) 01/06/2024 Other specified anxiety disorders (ICD-10 - F41.8) Plan Of Treatment Medication Medication Name Sig Start Date Stop Date Notes Gabapentin 300 MG 1 capsule Oral three times a day for 90 days Next Appt Details Follow Up: 3 Months, Reason: anxiety, insomnia Progress Notes * LESTERDEA CRUZ GDOB:1960 (63 yo M)Acc No.[id number]:01/06/2024 Patient: DEA VILLAFUERTE Provider: Marcella DUBOIS MD :1960 A ge:63 Y S ex:Male Date:01/06/2024 [facility] Pcp:Mehnaz Freed MD Subjective: * Chief Complaints: * 1 . Follow up visit. 2. Insomnia. 3. Anxiety. * HPI: D epression Screening: MITCHEL-7 (2018 Edition) F eeling nervous, anxious, or on edge?Not at all, N ot being able to stop or control worrying N ot at all, W orrying too much about different things S everal days, B eing so restless that it is hard to sit still Not at all, B ecoming easily annoyed or irritable S everal days, F eeling afraid as if something awful might happen N ot at all, T otal MITCHEL-7 Score 2 , I nterpretation of Total ( 0 to 4) No Anxiety. D epression screening: PHQ-9 L ittle interest or pleasure in doing things N ot at all, F eeling down, depressed, or hopeless N ot at all, T rouble falling or staying asleep, or sleeping too much M ore than half the days, F eeling tired or having little energy S everal days, P oor appetite or overeating N ot at all, F eeling bad about yourself or that you are a failure, or have let yourself or your family down N ot at all, T rouble concentrating on things, such as reading the newspaper or watching television N ot at all, M oving or speaking so slowly that other people could have noticed; or the opposite, being so fidgety or restless that you have been moving around a lot more than usual N ot at all, T houghts that you would be better off or of hurting yourself in some way N ot at all, T otal Score 3 , I nterpretation M inimal Depression. I ntervention D epression Screening Findings N egative, F ollow-Up for Depression M ental health care management, S uicide Risk Assessment Performed 1 , A dditional Evaluation for Depression P sychiatric interview and evaluation, N sen of the standardized tool used for adult depression screening: [facility] (PHQ-9). H istory of Presenting Problem: having more problems with sleep recently, various home repairs are creating financial stress, and can no longer do as many things around the house as he was able to do when younger; does not want to make changes to meds, but notes that at times will take a 4th tablet of gabapentin if having increased sleep problems; has had chronic cough, pcp thought it was due to lisinopril, but cough persisted when changed to losartan, now rx'd triamterene-hctz and still has cough. * Medical History: Lennox malone: Mixed anxiety and depressive disorder, Opioid withdrawal, Primary insomnia, ,. * Medications: T aking Glimepiride 2 MG Tablet Oral , Taking amLODIPine Besylate 10 MG Tablet Oral , Taking Gabapentin 300 MG Capsule 1 capsule Oral three times a day , Taking Triamterene-HCTZ 37.5-25 MG Tablet Oral , Not-Taking PRALUENT PEN 75 mg/mL Solution Pen-injector Subcutaneous , Notes to Pharmacist: *Reorder from [facility] for eRx and Interaction Alerts*, Discontinued Losartan Potassium-HCTZ 100-25 MG Tablet Oral , Discontinued Lisinopril-hydroCHLOROthiazide 20-12.5 MG Tablet Oral , Discontinued metFORMIN HCl ER 500 MG Tablet Extended Release 24 Hour Oral , Medication List reviewed and reconciled with the patient * Allergies: N .K.D.A. Objective: * Vitals: B P:136/81mm Hg, HR:96/min, Wt:276.6lbs, Wt-k.46 kg, Ht: 72.00 in, Ht-cm: 182.88 cm, BMI:37.51Index, Body Surface Area: 2.52. * Examination: P sychiatry: Appearance: w ell-groomed, well-nourished, .... Affect / mood: a ppropriate, full range. Attention: g ood. Attitude: c ooperative. Suicidal ideation: n one. Memory status: n o impairment noted. Degree of awareness of surroundings: w ithin normal limits.? Delusions: n o. Hallucinations: n o. Insight: g ood. Intellectual functioning: n o impairment noted. Judgement: g ood. Orientation: a wake, alert and oriented x 3. Perceptual disorders: n o perceptual disorder noted. Psychomotor activity: w ithin normal range. Speech / language: a ppropriate pitch/modulation, clear and coherent, normal rate, volume, and articulation (RVR), proper grammar used. Thought content: a ppropriate. Thought process: i ntact. Assessment: * Assessment: 1. P rimary insomnia - F51.01 (Primary) 2 . O ther specified anxiety disorders - F41.8 Plan: * Treatment: * Procedure Codes: 9 6127 BEHAV ASSMT W/SCORE & DOCD/STAND INSTRUMENT * Follow Up: 3 Months (Reason: anxiety, insomnia) * Billing Information: * Visit Code: 84575 OFFICE OUTPATIENT VISIT 25 MINUTES DETAILED HISTORY AND EXAM/MODERATE MEDICAL DECISION MAKING. * Procedure Codes: 44477 BEHAV ASSMT W/SCORE & DOCD/STAND INSTRUMENT. * Sign off status: Completed true * Provider: Marcella DUBOIS MD Date: 1 Generated for [place] carrion/Duncan/Carolitting on: 0 06/14/2024 12:32 PM CDT History and Physical Notes * HPI (History of Present Illness) Category Sub-Category Detail Notes Category Not es History of Presenting Problem having more problems with sleep recently, various home repairs are creating financial stress, and can no longer do as many things around the house as he was able to do when younger; does not want to make changes to meds, but notes that at times will take a 4th tablet of gabapentin if having increased sleep problems; has had chronic cough, pcp thought it was due to lisinopril, but cough persisted when changed to losartan, now rx'd triamterene-hctz and still has cough Depression screening PHQ-9 Little inte rest or pleasure in doing things: Not at all Feeling down, depressed, or hopeless: No t at all Trouble falling or staying a sleep, or sleeping too much: More than half the days Feeling tired or having little energy: S everal days Poor appetite or overeating: Not at all Feeling bad about yourself o r that you are a failure, or have let yourself or your family down: Not at all Trouble concentrating on thi ngs, such as reading the newspaper or watching television: Not at all Moving or speaking so slowly that other people could have noticed; or the opposite, being so fidgety or restless that you have been moving around a lot more than usual: Not at all Thoughts that you would be b gabriela off or of hurting yourself in some way: Not at all Total Score: 3 Interpretation: Minimal Depression Intervention Depression Screening Findings: N egative Follow-Up for Depression: Mental health care management Suicide Risk Assessment Performed: 01/05 Additional Evaluation for Depression: Ps ychiatric interview and evaluation Name of the standardized too l used for adult depression screening:: Patient Health Questionnaire (PHQ-9) Depression Screening MITCHEL-7 (2018 Edition) Feelin g nervous, anxious, or on edge: Not at all Not being able to stop or control worryi ng: Not at all Worrying too much about different things : Several days Being so restless that it is hard to sit still: Not at all Becoming easily annoyed or irritable: Se veral days Feeling afraid as if something awful jazmin ht happen: Not at all Total MITCHEL-7 Score: 2 Interpretation of Total: (0 to 4) No Anx iety Examination Category Sub-Category Detail Notes Category Not es Psychiatry Appearance: well-groomed, well-nourished , ... Attitude: cooperative Psychomotor activity: within normal rang e Attention: good Degree of awareness of surroundings: wit hin normal limits Orientation: awake, alert and pradip ented x 3 Affect / mood: appropriate, full ra nge Speech / language: appropriate pitch/mo dulation, clear and coherent, normal rate, volume, and articulation (RVR), proper grammar used Insight: good Judgement: good Thought process: intact Thought content: appropriate Perceptual disorders: no perceptual diso rder noted Suicidal ideation: none Intellectual functioning: no impairment noted Memory status: no impairment noted Delusions: no Hallucinations: no
--- OUTSIDE RECORDS SUMMARY | 2024-06-14 12:32 | XMS_ITS ---
Author Organization [facility] Address [facility] [address] Care Team Providers Care Qa Developer Name Role Phone Abdiaziz ZAMBRANO, Mehnaz Primary Care Provider Cele Chinchilla Unavailable [phone] REASON FOR VISIT No calls, No messages Social History Sex Assigned At : Social History Observation Description Sex Assigned At Male Encounters Encounter Location Date Provider Diagnosis [facility] [address] [place] [id number] [address] 04/21/2024 Cele Dubois Plan Of Treatment No Information Progress Notes * DEA LESTER GDOB:1960 (63 yo M)Acc No.[id number]:04/21/2024 Patient: DEA VILLAFUERTE Provider: Marcella DUBOIS MD :1960 A ge:63 Y S ex:Male Date:04/21/2024 [facility] Pcp:Mehnaz Freed MD Subjective: * Chief Complaints: * 1 . No calls, No messages. * Medical History: Objective: * Vitals: Assessment: Plan: * Treatment: * Procedure Codes: N S NO SHOW * Billing Information: * Visit Code: * Procedure Codes: NS NO SHOW. * B ASSISTANT Sign off status: Completed true * Provider: Marcella DUBOIS MD Date: 0 04/21/2024 Generated for Printi ng/Duncan/eTransmitting on: 0 06/14/2024 12:32 PM CDT
--- OUTSIDE RECORDS SUMMARY | 2024-06-14 12:33 | XMS_ITS ---
Author Organization [facility] [employer] [facility] Address [facility] [address] [place] [address] Care Team Providers Care Human Resource Consultant Name Role Phone Abdiaziz ZAMBRANO, Mehnaz Primary Care Provider Cele Chinchilla Unavailable [phone] Social History Sex Assigned At : Social History Observation Description Sex Assigned At Male Encounters Encounter Location Date Provider Diagnosis [facility] [email or web address] [place] [address] [place] [address] 04/06/2024 Munaa Soumya Plan Of Treatment No Information Progress Notes * DEA LESTER GDOB:1960 (63 yo M)Acc No.[id number]:04/06/2024 Patient: DEA VILLAFUERTE Provider: Marcella DUBOIS MD :1960 A ge:63 Y S ex:Male Date:04/06/2024 Address:[place] [place] [facility] Pcp:Mehnaz Freed MD Subjective: * Chief Complaints: * * Medical History: Objective: * Vitals: Assessment: Plan: * Treatment: * Billing Information: * Visit Code: * Procedure Codes: * Electronic signature of Muna Dubois MD on 06/14/2024 at 12:32 PM CDT Sign off status: Pending * Provider: Marcella DUBOIS MD Date: 0 04/06/2024 Generated for Printi ng/Faxing/eTransmitting on: 0 06/14/2024 12:32 PM CDT
--- OUTSIDE RECORDS SUMMARY | 2024-06-14 12:33 | XMS_ITS | Encounter Summary ---
Author Organization [facility] Address [address] [place] [address] Care Team Providers Care Silverware Washer Name Role Phone Mehnaz Freed MD Primary Care Provider + [phone] Encounter Details Date Type Department Care Team (Late st Contact Info) Description 05/12/2021 Telephone [facility] [address] [place] [address] Antoine Valle, RT Social History Tobacco Use Types Packs/Day Years Used Date Smoking Tobacco: Never Smokeless Tobacco: Current Chew Alcohol Use Standard Drinks/Week Comments Yes 4 (1 standard drink = 0.6 oz pur e alcohol) AUDIT-C Answer Date Recorded Q1: How often do you have a drink containing alc ohol? 2-4 times a month 05/12/2021 Q2: How many drinks containi ng alcohol do you have on a typical day when you are drinking? 1 or 2 05/12/2021 Q3: How often do you have si x or more drinks on one occasion? 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
--- OUTSIDE RECORDS SUMMARY | 2024-06-14 12:33 | XMS_ITS | Continuity of Care Document ---
Author Organization [facility] Address [address] [place] [address] [address] [place] [address] Phone Care Team Providers Care Fuel Technician Name Role Phone Krista Garsia Unavailable Unavailable Procedures Procedure Date Remove Foreign Body From Eye Advance Directives Directive Yes / No Effective Date File Name No Information Encounters Encounter Description Practice Location Reason(s) For Visit Diagnoses Date Provider Providers Copied on Encounter [facility], [address], [place], [place], [id number], [place] tel:[phone] [address] [facility] [place] No Information [phone] [facility] , [address], [place], [address], [place]. tel:[phone] Family History Family Member Type Diagnosis Age At Onset No Information Payers Payer name Insurance type Covered green party ID Authoriza tion(s) Edy Camilo [id number] Social History Type Description Quantity Date Captured Comments Sex Male Smoking Status No Information Chief Complaint And Reason For Visit No Information Reason For Referral Reason For Referral No Information History Of Present Illness Encounter Date Complaint History Of Prese nt Illness No Information Functional Status Date Functional Assessmen t No Information Instructions Date Instruction Additional Infor mation No Information Assessments Type Assessment Date No Information Patient Care Teams Name Effective Dates (start - stop) Status Members No Information
--- OUTSIDE RECORDS SUMMARY | 2024-06-14 12:33 | XMS_ITS | Referral Summary ---
Author Organization [facility] Address [address] [place] [address] Care Team Providers Care Fountain Clerk Name Role Phone Mehnaz Freed MD Primary Care Provider Allergies Active Allergy Reactions Criticality Noted Date Comments Shrimp Redness Low 05/12/2021 ---can eat, just turns eyes red, no SOB Fknqvpa-Pyw-Gqz Reductase Inhibitors Joint pain Low 05/12/2021 Medications lisinopril-hydr oCHLOROthiazide (ZESTORETIC) 20-12.5 mg per tabletIndicatio ns:hypertension Take 2 tablets by mouth every morning 0 Active metFORMIN XR (GLUCOPHAGE XR) 500 mg 24 hr tabletIndicatio ns:type 2 diabetes mellitus Take 1,000 mg by mouth 2 (two) times a day 1 Active OneTouch Ultra Blue Test Strip strip 1 Active OneTouch Delica Plus Lancet 33 gauge misc 1 Active glimepiride (AMARYL) 2 mg tabletIndicatio ns:type 2 diabetes mellitus Take 1 mg by mouth 2 (two) times a day 1 Active amLODIPine (NORVASC) 5 mg tabletIndicatio ns:hypertension Take 5 mg by mouth every morning 2 Active cyclobenzaprine (FLEXERIL) 10 mg tabletIndicatio ns:Muscle Spasm Take 10 mg by mouth as needed 2 Active ergocalciferol (VITAMIN D) 50,000 unit capsuleIndicati ons:Vitamin D Deficiency Take 1 capsule (50,000 Units total) by mouth once a week 12 capsule 2 Active aspirin 81 mg enteric coated tabletIndicatio ns:Deep Vein Thrombosis Prevention Take 1 tablet (81 mg total) by mouth 2 (two) times a day 28 tablet 2 Active celecoxib (CeleBREX) 200 mg capsuleIndicati ons:Pain Take 1 capsule (200 mg total) by mouth 2 (two) times a day 28 capsule 2 Active docusate sodium (COLACE) 100 mg capsuleIndicati ons:constipatio n Take 1 capsule (100 mg total) by mouth 2 (two) times a day May increase to 4 tablets twice daily if needed. HOLD medication for diarrhea. 30 capsule 1 2 Active oxyCODONE (ROXICODONE) 5 mg immediate release tabletIndicatio ns:Pain Take 1 tablet (5 mg total) by mouth every 4 (four) hours as needed for pain 40 tablet 2 Active Active Problems Problem Noted Date Diagnosed Date Arthritis of left shoulder region 10/21/2021 HTN (hypertension) 05/21/2021 HLD (hyperlipidemia) 05/21/2021 BASILIO on CPAP 05/21/2021 Type 2 diabetes mellitus 05/21/2021 Class 2 obesity in adult 05/21/2021 Shoulder arthritis 04/02/2021 Overview (04/02/2021): Added automatically from request for surgery [id number] Arthritis of carpometacarpal (CMC) joint of left thumb 07/10/2020 Overview (07/10/2020): Added automatically from request for surgery [id number] Arthritis of carpometacarpal (CMC) joint of righ t thumb 03/20/2020 Overview (03/20/2020): Added automatically from request for surgery [id number] Immunizations Immunization Administration Dates Next Due Influenza, Quadrivalent, Spl it, Intramuscular 02/03/2017,12/02/2015,03/12/2015 Influenza, Quadrivalent, Spl it, Pediatric, Preservative Free, Intramuscular 12/08/2017 Influenza, Quadrivalent, Spl it, Preservative Free, Intramuscular 01/31/2019 Pneumococcal Conjugate PCV 13 09/19/2014 ZOSTER Recombinant 09/27/2019 Social History Tobacco Use Types Packs/Day Years Used Date Smoking Tobacco: Never Smokeless Tobacco: Current Chew Alcohol Use Standard Drinks/Week Comments Yes 4 (1 standard drink = 0.6 oz pur e alcohol) AUDIT-C Answer Date Recorded Q1: How often do you have a drink containing alc ohol? Monthly or less 10/21/2021 Q2: How many drinks containi ng alcohol do you have on a typical day when you are drinking? 1 or 2 10/21/2021 Q3: How often do you have si x or more drinks on one occasion? 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 on file Not on file Not on fi le Last Filed Vital Signs Vital Sign Reading Time Taken Comments Blood Pressure 118/83 10/21/2021 4:16 PM CDT Pulse 51 10/21/2021 4:16 PM CDT Temperature 36.4 C (97.5 F) 10/21/2021 4:16 PM CDT Respiratory Rate 17 10/21/2021 4:16 PM CDT Oxygen Saturation 99% 10/21/2021 4:16 PM CDT Inhaled Oxygen Concentration - - Weight 120.1 kg (264 lb 11.2 oz) 10/21/2021 5:50 AM CDT Height 182.9 cm (6') 10/21/2021 5:50 AM CDT Body Mass Index 35.9 10/21/2021 5:50 AM CDT Plan of Treatment Not on file Medical Devices Implanted Type Area Therapeutic Dietitian Device Identifier Shelf Expiration Date Model / Serial / Lot [employer] Simplex P Radiopaque Full Dose Cement Bone Sterile 6191-1-010 - Sna - [id number] Implanted:Qty: 1 on 10/21/2021 by Alirio Buenrostro MD at [facility] Bone Cement [employer] 02/19/2024 6191-1-010 / NA / [id number] Description:Implant times ap proximate [employer] Head Resurfacing Shoulder Inhance 40mm Large [id number] - Sna - [id number] Implanted:Qty: 1 on 10/21/2021 by Alirio Buenrostro MD at [facility] Other - see comments Left: Shoulder [employer] [id number] 05/19/2026 [id number] / NA / [id number] Inhance Shoulder System Anatomic Offset Taper Adapter Implanted:Qty: 1 on 10/21/2021 by Alirio Buenrostro MD at [facility] Other - see comments Left: Shoulder [employer] [id number] 01/19/2026 0 / NA / [id number] Description:[id number] 200.00 SEE SUPPLY PAGE FOR CHARGE INFO [employer] Head Humeral Shoulder Inhance 17x48.5mm [place] [employer] [id number] - Sna - [id number] Implanted:Qty: 1 on 10/21/2021 by Alirio Buenrostro MD at [facility] Other - see comments Left: Shoulder [employer] [id number] 01/19/2026 [id number] / NA / [id number] [employer] Component Glenoid Anatomic Inhance 29mm Polyethylene Large [id number] - Sna - [id number] Implanted:Qty: 1 on 10/21/2021 by Alirio Buenrostro MD at [facility] Other - see comments Left: Shoulder [employer] [id number] 02/18/2026 [id number] / NA / [id number] [employer] Ar-8978-Cp Internalbrace Kit Hand Wrist Set Implant Ligament Augmentation - [id number] Implanted:Qty: 1 on 04/22/2020 by Ghassan Brady MD at [facility] Right: Wrist [employer] 11/19/2024 AR-8978-CP / / [id number] [employer] Ar-8978-Cp Internalbrace Kit Hand Wrist Set Implant Ligament Augmentation - [id number] Implanted:Qty: 1 on 08/05/2020 by Ghassan Brady MD at [facility] Left: Hand [employer] 05/19/2025 AR-8978-CP / / [id number] [employer] 6191-1-010 Simplex P Radiopaque Full Dose Cement Bone Sterile - [id number] Implanted:Qty: 1 on 05/23/2021 by Alirio Buenrostro MD at [facility] Right: Shoulder [employer] 05/20/2023 6191-1-010 / / [id number] Inhance Shoulder System Anatomic Glenoid 31.5mm X-Large Implanted:Qty: 1 on 05/23/2021 by Alirio Buenrostro MD at [facility] Right: Shoulder [employer] [id number] 11/19/2025 0 / / [id number] Inhance Shoulder System Anatomic Offset Taper Adapter Implanted:Qty: 1 on 05/23/2021 by Alirio Buenrostro MD at [facility] Right: Shoulder [employer] [id number] 11/19/2025 0 / / [id number] Inhance Shoulder System Short Stem 60umd20zh Large Implanted:Qty: 1 on 05/23/2021 by Alirio Buenrostro MD at [facility] Right: Shoulder [employer] 11/19/2025 5199-03-25 0 / / [id number] Inhance Shoulder System Humeral Head 48.5mmx 17mm Implanted:Qty: 1 on 05/23/2021 by Alirio Buenrostro MD at [facility] Right: Shoulder [employer] 10/19/2025 0 / / [id number] Procedures Procedure Name Priority Date/Time Associated Diagnosis Comments EGFR Routine 10/08/2021 12:29 PM CDT Shoulder arthritis Preoperative testing POCT HEMOGLOBIN A1C Routine 10/08/2021 1 2:22 PM CDT from Last 3 Months or Most Recently Relevant to Health Maintenance Results * eGFR (10/08/2021 12:29 PM CDT) eGFR >90 90 - 130 mL/min/1. 73 m2 [facility] Comment: Interpretive Data Reference Interval Normal >/= 90 mL/min/1.73m2 Mildly decreased* 60 - 89 mL/min/1.73m2 Mildly to moderately decreased 45 - 59 mL/min/1.73m2 Moderately to severely decreased 30 - 44 mL/min/1.73m2 Severely decreased 15 - 29 mL/min/1.73m2 Kidney Failure < 15 mL/min/1.73m2 *Relative to young adult level Estimated glomerular filtration rate is determined by the 2020 CKD-EPI equation recommended by the National Kidney Foundation (A Unifying Approach to GFR Estimation: Recommendations of the NKF-ASK Task Force on Reassessing the Inclusion of Race in Diagnosing Kidney Disease, JASN 2020). The CKD-EPI equation should not be used for patients with unstable renal function and has not been validated in children and those over 70. Current interpretive data was last reviewed 2021. Blood 10/08/2021 12:2 9 PM CDT 10/08/2021 1:21 PM CDT us Alirio Buenrostro MD LAB BLOOD ORDERABLES F inal Result [facility] Department [place] [address] * POCT hemoglobin A1c (10/08/2021 12:22 PM CDT) Pathologist [facility] Hgb A1C, POC 5.6 4.0 - 5.6 % [facility] Est Average Gluc POC 114 mg/dL [facility] Comment: The ADA recommends reporting an estimated Average Glucose (eAG) with all Hemoglobin A1c results using the equation derived from a study of 507 normal and diabetic adults. Minority populations were underrepresented and children were not included. (Diabetes Care 31:7204-5800, 2008). The eAG is not equivalent to a fasting glucose. Blood 10/08/2021 12:2 2 PM CDT 10/08/2021 12:22 PM CDT Alirio Buenrostro MD POINT OF CARE TEST ORD ERABLES Final Result [facility] Department [place] [address] from Last 3 Months or Most Recently Relevant to Health Maintenance Insurance [facility] H[facility]/PPO Address: [address] [address] [place] [address] [facility]PPO Address: [address] [address] [place] [address] [employer] [facility] H[facility]/PPO Address: [id number] [place] [address] [place] [employer] Advance Directives For more information, please contact: [phone] * Full Code (Latest Code Status on File) Date Activated Date Inactivated Comments 10/21/2021 11:09 AM 10/21/2021 10:54 PM * Full Code Date Activated Date Inactivated Comments 05/23/2021 12:26 PM 05/23/2021 11:19 PM Care Teams Fountain Clerk Relationship Specialty Start Date End Date Mehnaz Freed MD [address] [place] [address] PCP - General 09/16/16
--- OUTSIDE RECORDS SUMMARY | 2024-06-14 12:33 | XMS_ITS | Clinical Summary ---
Author Organization [facility] Address [address] [place] [address] Care Team Providers Care Wet Pan Mixer Name Role Phone Garfield Parisi MD Unavailable [phone] Mehnaz Freed MD Primary Care Provider [phone] Source Comments [facility],non-owned Affiliates and Associated Physician Practices is amultiple site organization consisting of ambulatory clinics and hospital sitesin [place], [place], [place]. This disclosure is being madepursuant to the Care Everywhere program and may not contain all information available regarding this patient. Last updated 17.[facility] Allergies No known active allergies Medications * Be aware that medications may not be up to date on this document. Alwaysverify current medications with the patient. Medication Sig Dispensed Refills Start Date End Date Status hydrocodone-acetaminoph en (NORCO) 7.5-325 MG tablet Take 1 Tab by mouth every 4 hours as needed. Active lisinopril-hydrochlorot hiazide (PRINZIDE; ZESTORETIC) 20-12.5 MG tablet Take 1 Tab by mouth once daily. Active pravastatin (PRAVACHOL) 10 MG tablet Take 10 mg by mouth at bedtime. Active Active Problems Problem Noted Date Diagnosed Date Knee joint replacement by other means 04/10/2013 Social History Tobacco Use Types Packs/Day Years Used Date Smoking Tobacco: Every Day Alcohol Use Standard Drinks/Week Comments Not Asked 0 (1 standard drink = 0.6 oz pur e alcohol) Sex and Gender Information Value Date Recorded Sex Assigned at Not on file Gender Identity Not on file Sexual Orientation Not on file Last Filed Vital Signs Vital Sign Reading Time Taken Comments Blood Pressure - - Pulse - - Temperature - - Respiratory Rate - - Oxygen Saturation - - Inhaled Oxygen Concentration - - Weight 124.7 kg (275 lb) 04/10/2013 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 Height 182.9 cm (6') 04/10/2013 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 Body Mass Index 37.3 04/10/2013 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 Plan of Treatment Health Maintenance Due Date Last Done Comments COLOGUARD (AGES 45-75) - COL ON CA SCREENING 1960 COLON MONITORING 1960 COLONOSCOPY - COLON CA SCREENING 1960 CT COLONOGRAPHY - COLON CA SCREENING 1960 Colorectal Cancer Screening 1960 FIT - COLON CA SCREENING 1960 FLEX SIG - COLON CA SCREENING 1960 HIV SCREENING 11/29/1975 HEPATITIS C SCREENING 11/24/1978 DTAP/TDAP/TD VACCINES (1 - Tdap) 11/29/1979 PNEUMOCOCCAL VACCINE (1 of 2 - PCV) 11/29/1979 PNEUMOCOCCAL VACCINE 50+ (1 of 1 - PCV) 2010 ZOSTER VACCINE (1 of 2) 2010 COVID-19 VACCINE ( - 2023-2 5 season) 2023 INFLUENZA VACCINE (#1) 2023 DEPRESSION SCREENING 03/22/2024 Respiratory Syncytial Virus (RSV) Vaccine Pt: or over 60 yrs (1 - 1-dose 75+ series) 11/29/2035 HEPATITIS B VACCINE Aged Out No longe r eligible based on patient's age to complete this topic HIB VACCINE Aged Out No longer eligi ble based on patient's age to complete this topic HPV VACCINE Aged Out No longer eligi ble based on patient's age to complete this topic MENINGOCOCCAL (Group B) VACC INE SHARED DECISION-MAKING Aged Out No longer eligibl e based on patient's age to complete this topic MENINGOCOCCAL GROUPS A/C/Y/W VACCINE Aged Out No longer eligible b ased on patient's age to complete this topic Care Teams Wet Pan Mixer Relationship Specialty [place] [address] [place] [address] PCP - General Internal Medicine 04/10/13 [place] [address] [place] [address] Orthopedic Surgery 04/10/13
--- OUTSIDE RECORDS SUMMARY | 2024-06-14 12:33 | XMS_ITS | Data Portability ---
Author Organization [facility], Main Office Address [address] [place] [address] Care Team Providers Care Machine Ii Cutter Name Role Phone AYLIN SANCHEZ Primary Care Provider [phone] Assessment No assessment recorded. Plan of Treatment Reminders Order Date Submit Date Provider Last Modified By Organization Details Last Modified Time Details Appointments New Patient 2024 01:00P AYO Zaragoza Not available Not available Not available Lab None recorded . Referral None recorded . Procedures None recorded . Surgeries None recorded . Imaging None recorded . Medication Orders None recorded . Patient TargetsNo targets recorded. Patient InstructionsNo instructions recorded. Reason for Referral None Reported. Problems Name Problem SNOMED Code Status Onset Date Resolution Date Notes Provider Name and Address Organization Details Recorded Time Osteoarthriti s of knee 622204005 Active Not Available [facility] 3 13:13:47 Disorder of prosthetic joint 992224999 Active Not Available [facility] 3 13:13:47 Knee pain Active Not Available [facility] 3 13:13:47 Vitamin D deficiency 44204883 Active Not Available [facility] 3 13:13:47 Chronic cough 48345316 Active 2023 Jorge Chen MD [address] [address], [place], [address] , [facility] 4 12:28:50 Deviated nasal septum 288799801 Active 2023 Jorge Chen MD [address] [facility] [address], [place], [address] , [facility] 4 12:28:56 Problem Notes None recorded. Medical Equipment None Reported. Allergies Allergen ID Allergen Name Allergen Category Reaction Reaction Severity Criticality Documentation Date Start Date Code Code System Note Provider Name and Address Organization Details Recorded Time 68946 metformin medicatio n diarrhea Not available Not available 11/24/2023 6809 SUE Goldman, [facility] 4 15:31:15 84712 rosuvasta tin medicatio n myalgias (muscle pain) Not available Not available 11/24/2023 74311 2 SUE Goldman, [facility] 4 15:31:25 Medications Name Sig Start Date Stop Date Status Note LastModified by Organization Details LastModified Time cyclobenzap rine 10 mg tablet Take 1 tablet 3 times a day by oral route. 11/24 completed Not Available Not Available Not Available methocarbam ol 500 mg tablet active Not Available Not Available Not Available doxycycline hyclate 100 mg capsule 08/28 completed Not Available Not Available Not Available lisinopril 20 mg-hydrochl orothiazide 12.5 mg tablet active Not Available Not Available Not Available azithromyci n 250 mg tablet 11/24 completed Not Available Not Available Not Available benzonatate 200 mg capsule active Not Available Not Available Not Available hydrocodone 10 mg-acetamin ophen 325 mg tablet 11/24 completed Not Available Not Available Not Available doxycycline monohydrate 100 mg tablet active Not Available Not Available Not Available sildenafil 100 mg tablet Take 1 tablet every day by oral route. active Not Available Not Available No t Available glimepiride 2 mg tablet Take 1 tablet every day by oral route. active Not Available Not Available No t Available ketorolac 10 mg tablet active Not Available Not Available Not Available losartan 100 mg-hydrochl orothiazide 25 mg tablet active Not Available Not Available Not Available pravastatin 10 mg tablet 08/28 completed Not Available Not Available Not Available ciprofloxac in 0.3 % eye drops 08/28 completed Not Available Not Available Not Available amlodipine 10 mg tablet Take 1 tablet every day by oral route. active Not Available Not Available No t Available hydrocodone 7.5 mg-acetamin ophen 325 mg tablet 08/28 completed Not Available Not Available Not Available gabapentin 300 mg capsule Take 1 capsule 3 times a day by oral route. active Not Available Not Available No t Available cyanocobala min (vit B-12) 1,[address] by sublingua l route. 11/24 completed Not Available Not Available Not Available levofloxaci n 500 mg tablet 08/28 completed Not Available Not Available Not Available methylpredn isolone 4 mg tablets in a dose pack active Not Available Not Available Not Available albuterol sulfate HFA 90 mcg/actuati on aerosol inhaler active Not Available Not Available Not Available celecoxib 100 mg capsule active Not Available Not Available Not Available hydrocodone 7.5 mg-acetamin ophen 500 mg tablet 08/28 completed Not Available Not Available Not Available fluticasone propionate 50 mcg/actuati on nasal spray,suspe nsion [place] 1 spray every day by intranasa l route. 11/24 completed Not Available Not Available Not Available metformin ER 500 mg tablet,exte nded release 24 hr active Not Available Not Available Not Available cyclobenzap rine 5 mg tablet active Not Available Not Available Not Available losartan-hy drochloroth iazide 100-25 MG ORAL TABLET, TAKE ONE TABLET BY MOUTH DAILY active Not Available Not Available No t Available Praluent Pen 75 mg/mL subcutaneou s pen injector active Not Available Not Available Not Available evolocumab 140 mg/mL subcutaneou s syringe Inject 1 mL every 2 weeks by subcutane ous route. 11/24 completed Not Available Not Available Not Available albuterol sulf 90 mcg/actuati on breath activated powder inhaler,sen sor Inhale 2 puffs every 4 hours by inhalatio n route. active Not Available Not Available No t Available Vitals Date Recorded Body height Body mass index (BMI) Body weight Body temperature Provider Name and Address Organization Details Last Updated DateTime 11/25/2023 182.88 cm 38.5 kg/m2 202670.95 g 97.9 [degF] GRACIELA Mccrary [place] [employer] [facility] 11/25/2023 12:02:57 Social History Question Answer Notes LastModified by Organizat ion Details LastModified Time Tobacco Smoking Status Never Smoker Carolina Loera RN null, [place] [employer] [facility] 11/25/2023 09:00:54 What Is Your Level Of Alcohol Consumption? Occasional [email or web address] Information not available 11/25/2023 Sex: Unknown Functional Status None recorded. Mental Status None recorded. Family History Relationship Description Onset Age of this Age Resolved Age Notes LastModified by Organization Details LastModified Time Father No current problems or disability [email or web address] Not available 11/24 09:00:42 Mother No current problems or disability [email or web address] Not available 11/24 09:00:42 Notes:NO ENT Medical History Condition Response DIABETES, TYPE Y ENT Y BACK / NECK PROBLEMS Y SLEEP DISORDER Y DEPRESSION (INCLUDING POST ) Y HYPERTENSION Y HIGH CHOLESTEROL / HYPERLIPIDEMIA Y Past Encounters Encounter ID Performer Location Encounter Start Date Encounter Closed Date Diagnosis/Indication Diagnosis SNOMED-CT Code Diagnosis ICD10 Code Diagnosis Note [id number] Jorge Chen MD [facility] [employer] [address] [place] [address] 11/25/2023 11:47:57 11/25/2023 13:53:20 Chronic cough 91252566 R05.3 Deviated nasal septum 12 1111038 J34.2 Health Concerns Section Related Observation LastModified by Organization Detai ls LastModified Time None Recorded Concern Status LastModified by Organization Details LastModified Time None Recorded Advance Directives Directive None Recorded Payers Encounter Date Sequence Insurance Name Policy Number Policy Askew Covered Member ID Askew Member ID Guarantor Name 11/25/2023 1 [facility] - [facility] PRIOR TO 2024 (PPO) Prieto Ivan [id number] Prieto Ivan Notes Date Note Type Note Provider Name and Address Organization Details Recorded Time 11/25/2023 text/html this patient has had a chronic cough and this has been going on for year. He discontinued his lisinopril but was placed on a new another MARZENA-inhibitor. During the period between the 2 MARZENA inhibitors his cough did resolve. He also has nasal congestion and is on nasal CPAP Jorge Chen MD [address] [place] [address], [place], [address], [facility] [employer] 11/25/2023 12:29:42
--- OUTSIDE RECORDS SUMMARY | 2024-06-14 12:33 | XMS_ITS | Clinical Summary ---
Author Organization [facility] Address [address] [place] [address] Care Team Providers Care Neurological Surgeon Name Role Phone Mehnaz Freed MD Primary Care Provider Allergies Active Allergy Reactions Criticality Noted Date Comments Shrimp Redness Low 05/12/2021 ---can eat, just turns eyes red, no SOB Xqxwxfh-Nap-Hjg Reductase Inhibitors Joint pain Low 05/12/2021 Medications [...] (04/02/2021): Added automatically from request for surgery [id number] Arthritis of carpometacarpal (CMC) joint of left thumb 07/10/2020 Overview (07/10/2020): Added automatically from request for surgery [id number] Arthritis of carpometacarpal (CMC) joint of righ t thumb 03/20/2020 Overview (03/20/2020): Added automatically from request for surgery [id number] Immunizations Immunization Administration Dates Next Due Influenza, Quadrivalent, Spl it, Intramuscular 02/03/2017,12/02/2015,03/12/2015 Influenza, Quadrivalent, Spl it, Pediatric, Preservative Free, Intramuscular 12/08/2017 Influenza, Quadrivalent, Spl it, Preservative Free, Intramuscular 01/31/2019 Pneumococcal Conjugate PCV 13 09/19/2014 ZOSTER Recombinant 09/27/2019 Surgical History Surgery Date Site/Laterality Comments UMBILICAL HERNIA REPAIR 03/22/2013 - 03/21/2014 COLONOSCOPY ? REPLACEMENT TOTAL KNEE 2009, 2012, 2014 Bilateral both knees 2009, right knee revision 2012, and full knee again on right 2014 OTHER SURGICAL HISTORY Right thumb trapezium removal and suture suspension THUMB SURGERY 04/22/2020 - 05/19/2020 Right R thumb trapezium THUMB SURGERY 07/20/2020 - 08/19/2020 Left L thumb trapezium Medical History Medical History Date Comments Hypertension Dyslipidemia no RX at this ti me BASILIO on CPAP CPAP used HLD (hyperlipidemia) 05/21/2021 Family History Medical History Relation Name Comments No Known Problems Father Anesthesia problems Neg Hx Relation Name Status Comments Father Social History Tobacco Use Types Packs/Day Years [...] on file 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 Gender Identity Not on file Sexual Orientation Not on file 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 Not on file Not on fi le Obstetrics History Last Filed Vital Signs Vital Sign Reading [...] 10/21/2021 5:50 AM CDT Plan of Treatment Health Maintenance Due Date Last Done Comments Albumin Creatinine Ratio, Urine 1960 Colon Cancer Screening-Colonoscopy 1960 Depression Screening 1960 Hepatitis C Screening 1960 Prostate Cancer Screening-PSA 1960 Dilated Eye Exam 1960 Foot Exam 1960 Lipid Panel 1960 DTaP/Tdap/Td Vaccine (1 - Tdap) 11/29/1971 Hepatitis B Screening 1978 Regular Well Visit/Exam 18-64 1978 Pneumococcal vaccine <65 (2 of 2 - PPSV23) 11/14/2014 09/19/2014 Hemoglobin A1C 04/10/2022 10/08/2021, 05/12/2021 eGFR 10/08/2022 10/08/2021, 05/12/2021 Covid-19 Vaccine (4 - 2023-2 5 season) 2023 02/10/2021, 07/24/2020, 06/25/2020 Influenza Vaccine (#1) 2023 , 01/31/2019, 12/08/2017, Additional history exists Zoster Vaccine Completed 03/21/2020, 09/27/2019 Medical Devices Implanted Type Area Videogame Tester Device Identifier Shelf Expiration Date Model / Serial / Lot [employer] Simplex P Radiopaque Full Dose Cement Bone Sterile 6191-1-010 - Sna - [id number] Implanted:Qty: 1 on 10/21/2021 by Alirio Buenrostro MD at [facility] Bone Cement [employer] 02/19/2024 6191-1-010 / NA / [id number] Description:Implant times ap proximate [employer] Head Resurfacing Shoulder Inhance 40mm Large [id number] - Sna - [id number] Implanted:Qty: 1 on 10/21/2021 by Alirio Buenrostro MD at [facility] Other - see comments Left: Shoulder [employer] [id number] 05/19/2026 [id number] / NA / [id number] Inhance Shoulder System Anatomic Offset Taper Adapter Implanted:Qty: 1 on 10/21/2021 by Alirio Buenrostro MD at [facility] Other - see comments Left: Shoulder [employer] [id number] 01/19/2026 0 / NA / [id number] Description:[id number] J02764 200.00 SEE SUPPLY PAGE FOR CHARGE INFO [employer] Head Humeral Shoulder Inhance 17x48.5mm [employer]ium [id number] - Sna - [id number] Implanted:Qty: 1 on 10/21/2021 by Alirio Buenrostro MD at [facility] Other - see comments Left: Shoulder [employer] [id number] 01/19/2026 [id number] / NA / [id number] [employer] Component Glenoid Anatomic Inhance 29mm Polyethylene Large [id number] - Sna - [id number] Implanted:Qty: 1 on 10/21/2021 by Alirio Buenrostro MD at [facility] Other - see comments Left: Shoulder [employer] [id number] 02/18/2026 [id number] / NA / [id number] [employer] Ar-8978-Cp Internalbrace Kit Hand Wrist Set Implant Ligament Augmentation - [id number] Implanted:Qty: 1 on 04/22/2020 by Ghassan Brady MD at [facility] Right: Wrist [employer] 11/19/2024 AR-8978-CP / / [id number] [employer] Ar-8978-Cp Internalbrace Kit Hand Wrist Set Implant Ligament Augmentation - [id number] Implanted:Qty: 1 on 08/05/2020 by Ghassan Brady MD at [facility] Left: Hand [employer] 05/19/2025 AR-8978-CP / / [id number] [employer] 6191-1-010 Simplex P Radiopaque Full Dose Cement Bone Sterile - [id number] Implanted:Qty: 1 on 05/23/2021 by Alirio Buenrostro MD at [facility] Right: Shoulder [employer] 05/20/2023 6191-1-010 / / [id number] Inhance Shoulder System Anatomic Glenoid 31.5mm X-Large Implanted:Qty: 1 on 05/23/2021 by Alirio Buenrostro MD at [facility] Right: Shoulder [employer] [id number] 11/19/2025 0 / / [id number] Inhance Shoulder System Anatomic Offset Taper Adapter Implanted:Qty: 1 on 05/23/2021 by Alirio Buenrostro MD at [facility] Right: Shoulder [employer] [id number] 11/19/2025 0 / / [id number] Inhance Shoulder System Short Stem 23eqn28qw Large Implanted:Qty: 1 on 05/23/2021 by Alirio Buenrostro MD at [facility] Right: Shoulder [employer] 11/19/2025 5199-03-25 0 / / [id number] Inhance Shoulder System Humeral Head 48.5mmx 17mm Implanted:Qty: 1 on 05/23/2021 by Alirio Buenrostro MD at [facility] Right: Shoulder [employer] 10/19/2025 0 / / [id number] Procedures Procedure Name Priority Date/Time Associated Diagnosis Comments EGFR Routine 10/08/2021 12:29 PM CDT Shoulder arthritis Preoperative testing POCT HEMOGLOBIN A1C Routine 10/08/2021 1 2:22 PM CDT from Last 3 Months or Most Recently Relevant to Health Maintenance Results * eGFR (10/08/2021 12:29 PM CDT) eGFR >90 90 - 130 mL/min/1. 73 m2 [facility] Comment: Interpretive Data Reference Interval Normal [...] of Race in Diagnosing Kidney Disease, JASN 202). The CKD-EPI equation should not be used for patients with unstable renal function and has not been validated in children and those over 70. Current interpretive data was last reviewed 2021. Blood 10/08/2021 12:2 9 PM CDT 10/08/2021 1:21 PM CDT Alirio Buenrostro MD LAB BLOOD ORDERABLES F inal Result Performing Organization Address [facility] de Phone Number [facility] [place] [address] * POCT hemoglobin A1c (10/08/2021 12:22 PM CDT) Hgb A1C, POC 5.6 4.0 - 5.6 % [facility] Est Average Gluc POC 114 mg/dL [facility] Comment: The ADA recommends reporting an estimated Average Glucose (eAG) with all Hemoglobin A1c results using the equation derived from a study of 507 normal and diabetic adults. Minority populations were underrepresented and children were not included. (Diabetes Care 31:0477-4104, 2008). The eAG is not equivalent to a fasting glucose. Blood 10/08/2021 12:2 2 PM CDT 10/08/2021 12:22 PM CDT Alirio Buenrostro MD POINT OF CARE TEST ORD ERABLES Final Result Performing Organization Address [facility] Co de Phone Number [facility] [place] [address] from Last 3 Months or Most Recently Relevant to Health Maintenance Insurance R [facility] OPTIONS PPO [facility] OPTIONS PPO [place] [employer] Advance Directives For more information, please contact: [phone] * Full Code (Latest Code Status on File) Date Activated Date Inactivated Comments 10/21/2021 11:09 AM 10/21/2021 10:54 PM * Full Code Date Activated Date Inactivated Comments 05/23/2021 12:26 PM 05/23/2021 11:19 PM Care Teams Neurological Surgeon Relationship Specialty Start Date End Date Mehnaz Freed MD [address] [place] [address] PCP - General 09/16/16
--- OUTSIDE RECORDS SUMMARY | 2024-06-14 12:33 | XMS_ITS | Clinical Summary ---
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 Pulse 92 02/20/2023 9:05 PM GUM ROLLING MACHINE TENDER Temperature 36.7 C (98 F) 02/20/2023 7:47 PM GUM ROLLING MACHINE TENDER Respiratory Rate 18 02/20/2023 9:05 PM GUM ROLLING MACHINE TENDER Oxygen Saturation 97% 02/20/2023 9:05 PM GUM ROLLING MACHINE TENDER Inhaled Oxygen Concentration - - Weight 129.3 kg (285 lb) 02/20/2023 7:48 PM GUM ROLLING MACHINE TENDER Height 182.9 cm (6') 02/20/2023 7:48 PM GUM ROLLING MACHINE TENDER Body Mass Index 38.65 02/20/2023 7:48 PM GUM ROLLING MACHINE TENDER Plan of Treatment Health Maintenance Due Date Last Done Comments Colorectal Cancer Screening Colonoscopy (10 Years) 1960 Annual Physical 11/29/1963 Hepatitis C 1978 COVID-19 Vaccine ( season) 2023 07/24/2020, 06/25/2020 Influenza Adult (#1) 2023 12/30/2020, 01/31/2019, 02/03/2017, Additional history exists DTaP, Tdap and Td Vaccines (2 - Td or Tdap) 07/17/2031 07/16/2021 RSV Immunization or 60+ Years (1 - 1-dose 75+ series) 11/29/2035 Pneumococcal Vaccine: Pediatrics (0 to 5 Years) and At-Risk Patients (6 to 64 Years) Aged Out 09/19/2014 No longer eligible based on patient's age to complete this topic Zoster Vaccines Completed 03/21/2020, 09/27/2019 Meningococcal B Vaccine Aged Out No l onger eligible based on patient's age to complete this topic Meningococcal Vaccine Aged Out No ruth adonis eligible based on patient's age to complete this topic RSV Immunizations Under 20 Months Aged Out No longer eligible based on patient's age to complete this topic Insurance [employer] [place] Care Teams Sales Relationship Manager Relationship Specialty Start Date End Date None, Provider, PCP - General UNKNOWN PHYSICIAN SPECIALTY 02/20/23
--- OUTSIDE RECORDS SUMMARY | 2024-06-14 12:33 | XMS_ITS | CONTINUITY OF CARE DOCUMENT ---
Author Name bella lbanco Address Unknown Organization [facility] Address [address] [place] [address] [address] [place] [address] Phone [phone] Care Team Providers Care Homeowner Association Manager Name Role Phone bella blanco Unavailable Unavailable INSURANCE PROVIDERS Payer name Policy type / Coverage type Hardin red libertarian ID [employer] [facility] [place] [employer] Insurance insurance [place] [id number]
[2024-06-19 09:06] LABS: Estimated Glomerular Filt Rate > 60
== END 2024-06-14 10:56 | disposition home or self-care (01) ==
PROVIDERS: PCP Internal Medicine; Visit Provider Internal Medicine
DX: H66.012 Acute suppurative otitis media with spontaneous rupture of ear drum, left ear (principal)
CPT/HCPCS: 36415; 85025; 87636; 87651

== ENCOUNTER 2024-06-19 08:21 | Outpatient (CLI) | payer OTHER, SELFPAY ==
--- NOTE | ~2024-06-19 | CT_ITS ---
CT Scan of the Chest without Contrast: Clinical Indication: Chronic cough Technique: Contiguous sections were acquired throughout the chest without intravenous contrast. Dose reduction technique was used on this scan by utilizing automated exposure control and iterative recon struction technique. The dose-length product (DLP) was 808.82 mGy-cm. Findings: There is no evidence of any significant mediastinal, hilar or axillary lymphadenopathy. Coronary diana ry calcifications are present. There is no evidence of pleural or pericardial effusion. The lungs are clear. No pulmonary nodules or infiltrates are noted. Images through the upper abdomen reveal no abnormalities. There is degenerative spondylosis of the th oracic spine with probable mild canal stenosis at the mid thoracic spine. Impression: Clear lungs. Reviewed, dictated and finalized at location . Impression: Clear lungs.
--- NOTE | ~2024-06-19 | CT_ITS ---
EXAMINATION: CT soft tissue neck w con DATE: 06/19/2024 09:29 INDICATION: Left anterior cervical lymphadenopathy. TECHNIQUE: Computed tomography (CT) of the neck was performed with 75 mL Omnipaque-350 intravenous co ntrast. Automated exposure control and iterative reconstruction technique were employed. The dose-johnna gth product was 808.82 mGy-cm. COMPARISON: None FINDINGS: There are no pathologically enlarged lymph nodes. The major salivary glands are normal. The re is plaque in the proximal internal carotid arteries with less than 50% stenosis relative to normal distal artery lumen diameters. There is mucosal thickening in the paranasal sinuses. The orbits are normal. There is a left otomastoid effusion. There is severe cervical spondylosis. IMPRESSION: 1. No lymphadenopathy. Reviewed, dictated and finalized at location A. IMPRESSION: 1. No lymphadenopathy.
--- OUTSIDE RECORDS SUMMARY | 2024-06-19 08:37 | XMS_ITS ---
Author Organization [facility] [employer] [facility] Address [facility] [address] [address] Care Team Providers Care Machine Steak Tenderizer Name Role Phone Abdiaziz ZAMBRANO, Mehnaz Primary Care Provider Cele Chinchilla Unavailable [phone] REASON FOR VISIT No calls, No messages Social History Sex Assigned At : Social History Observation Description Sex Assigned At Male Encounters Encounter Location Date Provider Diagnosis [facility] [place] [address] [address] 04/21/2024 Cele Dubois Plan Of Treatment No Information Progress Notes * DEA LESTER GDOB:1960 (63 yo M)Acc No.[id number]:04/21/2024 Patient: DEA VILLAFUERTE Provider: Marcella DUBOIS MD :1960 A ge:63 Y S ex:Male Date:04/21/2024 [facility] Pcp:Mehnaz Freed MD Subjective: * Chief Complaints: * 1 . No calls, No messages. * Medical History: Objective: * Vitals: Assessment: Plan: * Treatment: * Procedure Codes: N S NO SHOW * Billing Information: * Visit Code: * Procedure Codes: NS NO SHOW. * CHANGEOVER OPERATOR Sign off status: Completed true * Provider: Marcella DUBOIS MD Date: 0 04/21/2024 Generated for Printi ng/Duncan/eTransmitting on: 0 06/19/2024 08:37 AM CDT
--- OUTSIDE RECORDS SUMMARY | 2024-06-19 08:38 | XMS_ITS ---
Author Organization [facility] [employer] [facility] Address [facility] [address] [place] [address] Care Team Providers Care Rn Wellness Name Role Phone Abdiaziz ZAMBRANO, Mehnaz Primary Care Provider Cele Chinchilla Unavailable [phone] Social History Sex Assigned At : Social History Observation Description Sex Assigned At Male Encounters Encounter Location Date Provider Diagnosis [facility] [place] [address] [place] [address] 04/06/2024 Munaa Soumya Plan Of Treatment No Information Progress Notes * DEA LESTER GDOB:1960 (63 yo M)Acc No.[id number]:04/06/2024 Patient: DEA VILLAFUERTE Provider: Marcella DUBOIS MD :1960 A ge:63 Y S ex:Male Date:04/06/2024 Address:[place] [facility] Pcp:Mehnaz Freed MD Subjective: * Chief Complaints: * * Medical History: Objective: * Vitals: Assessment: Plan: * Treatment: * Billing Information: * Visit Code: * Procedure Codes: * Electronic signature of Muna Dubois MD on 06/19/2024 at 08:37 AM CDT Sign off status: Pending * Provider: Marcella DUBOIS MD Date: 0 04/06/2024 Generated for Printi ng/Faxing/eTransmitting on: 0 06/19/2024 08:37 AM CDT
--- OUTSIDE RECORDS SUMMARY | 2024-06-19 08:38 | XMS_ITS | Referral Summary ---
Author Organization [facility] Address [address] [place] [address] Care Team Providers Care Oral Health Therapist Name Role Phone Mehnaz Freed MD Primary Care Provider Encounters Date Type Department Care Team Description 06/15/2024 Telephone [facility] ([facility]) - [facility] [address] [facility] 11th [place] [address] [place] [address] Keri Butt MS from Last 3 Months Allergies Active Allergy Reactions Criticality Noted Date Comments Shrimp Redness Low 05/12/2021 ---can eat, just turns eyes red, no SOB Xchndzx-Dsq-Ofl Reductase Inhibitors Joint pain Low 05/12/2021 Medications [...] (04/02/2021): Added automatically from request for surgery [id number] Arthritis of carpometacarpal (CMC) joint of left thumb 07/10/2020 Overview (07/10/2020): Added automatically from request for surgery [id number] Arthritis of carpometacarpal (CMC) joint of righ t thumb 03/20/2020 Overview (03/20/2020): Added automatically from request for surgery [id number] Immunizations Immunization Administration Dates Next Due Influenza, [...] on file 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 Gender Identity Not on file Sexual Orientation Not on file 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 Not on file Not [...] on file Medical Devices Implanted Type Area Cost Accounting Clerk Device Identifier Shelf Expiration Date Model / Serial / Lot [employer] Simplex P Radiopaque Full Dose Cement Bone Sterile 6191-1-010 - Sna - [id number] Implanted:Qty: 1 on 10/21/2021 by Alirio Buenrostro MD at [facility] Bone Cement [employer] 02/19/2024 6191-1-010 / NA / [id number] Description:Implant times ap proximate [employer] Head Resurfacing Shoulder Inhance 40mm Large [id number] - Sna - [id number] Implanted:Qty: 1 on 10/21/2021 by Alirio Buenrostro MD at [facility] Other - see comments Left: Shoulder [employer] [id number] 05/19/2026 [id number] / NA / [id number] Inhance Shoulder System Anatomic Offset Taper Adapter Implanted:Qty: 1 on 10/21/2021 by Alirio Buenrostro MD at [facility] Other - see comments Left: Shoulder [employer] [id number] 01/19/2026 / NA / [id number] Description:[id number] Y18065 200.00 SEE SUPPLY PAGE FOR CHARGE INFO [employer] Head Humeral Shoulder Inhance 17x48.5mm [place] [employer]ium [id number] - Sna - [id number] Implanted:Qty: 1 on 10/21/2021 by Alirio Buenrostro MD at [facility] Other - see comments Left: Shoulder [employer] [id number] 01/19/2026 [id number] / NA / [id number] [employer] Component Glenoid Anatomic Inhance 29mm Polyethylene Large [id number] - Sna - [id number] Implanted:Qty: 1 on 10/21/2021 by Alirio Buenrostro MD at [facility] Other - see comments Left: Shoulder [employer] [id number] 02/18/2026 [id number] / NA / [id number] [employer] Ar-8978-Cp Internalbrace Kit Hand Wrist Set Implant Ligament Augmentation - [id number] Implanted:Qty: 1 on 04/22/2020 by Ghassan Brady MD at [facility] Right: Wrist [employer] 11/19/2024 AR-8978-CP / / [id number] [employer] Ar-8978-Cp Internalbrace Kit Hand Wrist Set Implant Ligament Augmentation - [id number] Implanted:Qty: 1 on 08/05/2020 by Ghassan Brady MD at [facility] Left: Hand [employer] 05/19/2025 AR-8978-CP / / [id number] [facility] 6191-1-010 Simplex P Radiopaque Full Dose Cement Bone Sterile - [id number] Implanted:Qty: 1 on 05/23/2021 by Alirio Buenrostro MD at [facility] Right: Shoulder [employer] 05/20/2023 6191-1-010 / / [id number] Inhance Shoulder System Anatomic Glenoid 31.5mm X-Large Implanted:Qty: 1 on 05/23/2021 by Alirio Buenrostro MD at [facility] Right: Shoulder [employer] [id number] 11/19/2025 0 / / [id number] Inhance Shoulder System Anatomic Offset Taper Adapter Implanted:Qty: 1 on 05/23/2021 by Alirio Buenrostro MD at [facility] Right: Shoulder [employer] [id number] 11/19/2025 0 / / [id number] Inhance Shoulder System Short Stem [id number] Large Implanted:Qty: 1 on 05/23/2021 by Alirio Buenrostro MD at [facility] Right: Shoulder [employer] 11/19/2025 5199-03-25 0 / / [id number] Inhance Shoulder System Humeral Head 48.5mmx 17mm Implanted:Qty: 1 on 05/23/2021 by Alirio Buenrostro MD at [facility] Right: Shoulder [employer] 10/19/2025 0 / / [id number] Procedures Procedure Name Priority Date/Time Associated Diagnosis Comments EGFR Routine 10/08/2021 12:29 PM CDT Shoulder arthritis Preoperative testing POCT HEMOGLOBIN A1C Routine 10/08/2021 1 2:22 PM CDT from Last 3 Months or Most Recently Relevant to Health Maintenance Results * eGFR (10/08/2021 12:29 PM CDT) eGFR >90 90 - 130 mL/min/1. 73 m2 [facility] Comment: Interpretive Data Reference Interval Normal >/= [...] MD LAB BLOOD ORDERABLES F inal Result [facility] Department [place] [address] * POCT hemoglobin A1c (10/08/2021 12:22 PM CDT) Hgb A1C, POC 5.6 4.0 - 5.6 % [facility] 2[facility] Est Average Gluc POC 114 mg/dL [facility] Comment: The ADA recommends reporting an estimated Average Glucose (eAG) with all Hemoglobin A1c results using the equation derived from a study of 507 normal and diabetic adults. Minority populations were underrepresented and children were not included. (Diabetes Care 31:4847-0833, 2008). The eAG is not equivalent to a fasting glucose. Blood 10/08/2021 12:2 2 PM CDT 10/08/2021 12:22 PM CDT Alirio Buenrostro MD POINT OF CARE TEST ORD ERABLES Final Result [facility] [place] [address] from Last 3 Months or Most Recently Relevant to Health Maintenance Insurance [facility] HMO [employer] OPTIONS PPO [place] [employer] Advance Directives For more information, please contact: [phone] * Full Code (Latest Code Status on File) Date Activated Date Inactivated Comments 10/21/2021 11:09 AM 10/21/2021 10:54 PM * Full Code Date Activated Date Inactivated Comments 05/23/2021 12:26 PM 05/23/2021 11:19 PM Care Teams Oral Health Therapist Relationship Specialty Start Date End Date Mehnaz Freed MD [address] [place] [address] PCP - General 09/16/16
--- OUTSIDE RECORDS SUMMARY | 2024-06-19 08:38 | XMS_ITS | Encounter Summary ---
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
--- OUTSIDE RECORDS SUMMARY | 2024-06-19 08:38 | XMS_ITS | Clinical Summary ---
Author Organization [facility] Address [address] [place] [address] Care Team Providers Care Chip Loft Worker Name Role Phone Mehnaz Freed MD Primary Care Provider Allergies Active Allergy Reactions Criticality Noted Date Comments Shrimp Redness Low 05/12/2021 ---can eat, just turns eyes red, no SOB Vkfzgns-Kns-Qqi Reductase Inhibitors Joint pain Low 05/12/2021 Medications [...] (04/02/2021): Added automatically from request for surgery [id number] Arthritis of carpometacarpal (CMC) joint of left thumb 07/10/2020 Overview (07/10/2020): Added automatically from request for surgery [id number] Arthritis of carpometacarpal (CMC) joint of righ t thumb 03/20/2020 Overview (03/20/2020): Added automatically from request for surgery [id number] Encounters Date Type Department Care Team Description 06/15/2024 Telephone [facility] ([facility]) - [facility] ENT [address] 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 Not on file Not [...] 05/12/2021 eGFR 10/08/2022 10/08/2021, 05/12/2021 Covid-19 Vaccine (2023-2 5 season) 2023 02/10/2021, 07/24/2020, 06/25/2020 Influenza Vaccine (#1) 2023 , 01/31/2019, 12/08/2017, Additional history exists Zoster Vaccine Completed 03/21/2020, 09/27/2019 Medical Devices Implanted Type Area Early Childhood Teacher Assistant Device Identifier Shelf Expiration Date Model / Serial / Lot [employer] Simplex P Radiopaque Full Dose Cement Bone Sterile 6191-1-010 - Sna - [id number] Implanted:Qty: 1 on 10/21/2021 by Alirio Buenrostro MD at [facility] Bone Cement [employer] 02/19/2024 6191-1-010 / NA / [id number] Description:Implant times ap proximate [employer] Head Resurfacing Shoulder Inhance 40mm Large [id number] - Sna - [id number] Implanted:Qty: 1 on 10/21/2021 by Alirio Buenrostro MD at [facility] Other - see comments Left: Shoulder [employer] [id number] 05/19/2026 [id number] / NA / [id number] Inhance Shoulder System Anatomic Offset Taper Adapter Implanted:Qty: 1 on 10/21/2021 by Alirio Buenrostro MD at [facility] Other - see comments Left: Shoulder DEPUY [employer] Thing5 [id number] 01/19/2026 0 / NA / [id number] Description:[id number] 200.00 SEE SUPPLY PAGE FOR CHARGE INFO [employer] Head Humeral Shoulder Inhance 17x48.5mm Adams Chromium [id number] - Sna - [id number] Implanted:Qty: 1 on 10/21/2021 by Alirio Buenrostro MD at [facility] Other - see comments Left: Shoulder [employer] [id number] 01/19/2026 [id number] / NA / [id number] [employer] Component Glenoid Anatomic Inhance 29mm Polyethylene Large [id number] - Sna - [id number] Implanted:Qty: 1 on 10/21/2021 by Alirio Buenrostro MD at [facility] Other - see comments Left: Shoulder [employer] [id number] 02/18/2026 [id number] / NA / [id number] [employer] Ar-8978-Cp Internalbrace Kit Hand Wrist Set Implant Ligament Augmentation - [id number] Implanted:Qty: 1 on 04/22/2020 by Ghassan Brady MD at [facility] Right: Wrist [employer] 11/19/2024 AR-8978-CP / / [id number] [employer] Ar-8978-Cp Internalbrace Kit Hand Wrist Set Implant Ligament Augmentation - [id number] Implanted:Qty: 1 on 08/05/2020 by Ghassan Brady MD at [facility] Left: Hand [employer] 05/19/2025 AR-8978-CP / / [id number] [employer] 6191-1-010 Simplex P Radiopaque Full Dose Cement Bone Sterile - [id number] Implanted:Qty: 1 on 05/23/2021 by Alirio Buenrostro MD at [facility] Right: Shoulder [employer] 05/20/2023 6191-1-010 / / [id number] Inhance Shoulder System Anatomic Glenoid 31.5mm X-Large Implanted:Qty: 1 on 05/23/2021 by Alirio Buenrostro MD at [facility] Right: Shoulder [employer] [id number] 11/19/2025 0 / / [id number] Inhance Shoulder System Anatomic Offset Taper Adapter Implanted:Qty: 1 on 05/23/2021 by Alirio Buenrostro MD at [facility] Right: Shoulder [employer] [id number] 11/19/2025 0 / / [id number] Inhance Shoulder System Short Stem [id number] Large Implanted:Qty: 1 on 05/23/2021 by Alirio Buenrostro MD at [facility] Right: Shoulder [employer] 11/19/2025 5199-03-25 0 / / [id number] Inhance Shoulder System Humeral Head 48.5mmx 17mm Implanted:Qty: 1 on 05/23/2021 by Alirio Buenrostro MD at [facility] Right: Shoulder [employer] 10/19/2025 0 / / [id number] Procedures Procedure Name Priority Date/Time Associated Diagnosis Comments EGFR Routine 10/08/2021 12:29 PM CDT Shoulder arthritis Preoperative testing POCT HEMOGLOBIN A1C Routine 10/08/2021 1 2:22 PM CDT from Last 3 Months or Most Recently Relevant to Health Maintenance Results * eGFR (10/08/2021 12:29 PM CDT) eGFR >90 90 - 130 mL/min/1. 73 m2 [facility] Comment: Interpretive Data Reference Interval Normal >/= [...] MD LAB BLOOD ORDERABLES F inal Result [facility] Department [place] [address] * POCT hemoglobin A1c (10/08/2021 12:22 PM CDT) Pathologist [facility] Hgb A1C, POC 5.6 4.0 - 5.6 % [facility] Est Average Gluc POC 114 mg/dL [facility] Comment: The ADA recommends reporting an estimated Average Glucose (eAG) with all Hemoglobin A1c results using the equation derived from a study of 507 normal and diabetic adults. Minority populations were underrepresented and children were not included. (Diabetes Care 31:2157-6133, 2008). The eAG is not equivalent to a fasting glucose. Blood 10/08/2021 12:2 2 PM CDT 10/08/2021 12:22 PM CDT us Alirio Buenrostro MD POINT OF CARE TEST ORD ERABLES Final Result [facility] Department [place] [address] from Last 3 Months or Most Recently Relevant to Health Maintenance Insurance [facility] HMO [employer] PPO [place] [employer] Advance Directives For more information, please contact: [phone] * Full Code (Latest Code Status on File) Date Activated Date Inactivated Comments 10/21/2021 11:09 AM 10/21/2021 10:54 PM * Full Code Date Activated Date Inactivated Comments 05/23/2021 12:26 PM 05/23/2021 11:19 PM Care Teams Chip Loft Worker Relationship Specialty Start Date End Date Mehnaz Fered MD [address] [place] [address] PCP - General 09/16/16
--- OUTSIDE RECORDS SUMMARY | 2024-06-19 08:38 | XMS_ITS | Patient Health Record ---
Author Organization [facility] Address [address] [place] [address] Care Team Providers Care Beehive Kiln Supervisor Name Role Phone Abdiaziz ZAMBRANO, Mehnaz Primary Care Provider Cele Chinchilla Unavailable [phone] Migration, Provider Unavailable Unavailable Allergies No Known Allergies Reason For Referral No Information Medications Medication SIG (Take, Route, Frequency, Duration) Notes Start Date End Date Status Triamterene-HCTZ 37.5-25 MG Oral for 30 Days Active amLODIPine Besylate 10 MG Oral 08/03/2023 Active Glimepiride 2 MG Oral 08/03/2023 Ac tive PRALUENT PEN 75 mg/mL Subcutaneous *Reorder from SIGFOX for eRx and Interaction Alerts* 08/03/2023 Not-Taking [...] 01/06/2024 Encounters Encounter Location Date Provider Diagnosis [facility] [employer] [facility] [employer] [address] [place] [address] 08/03/2023 Cele Dooley Other specified anxiety disorders F41.8 and Primary insomnia F51.01 [facility] [employer] [facility] [employer] [address] [place] [address] 01/06/2024 Thena Soumya Primary insomnia F51.01 and Other specified anxiety disorders F41.8 [place] [id number] [facility] [address] [facility] [address] [place] [address] 04/21/2024 Thena Soumya [place] [id number] [facility] [address] [address] 08/07/2023 Provider Migration [address] [address] 08/08/2023 Provider Migration Assessments Encounter Date Diagnosis [...] Insured Coverage Start Date Coverage End Date [facility] ([place], [place]) [address] [address] [place] [address] [id number] Nu [id number] GAUDENCIO LESTER Spouse - patient is the spouse of the insured Medical (General) History Medical History History ICD Code Problems: Mixed anxiety and depressive d isorder Opioid withdrawal Primary insomnia , Surgical History Surgery Date(Month/Year) Other
--- OUTSIDE RECORDS SUMMARY | 2024-06-19 08:38 | XMS_ITS | Clinical Summary ---
Author Organization [facility] Address [address] [place] [address] Care Team Providers Care Director Of Tax Services Name Role Phone None, Provider MD Primary [...] Comments Blood Pressure 152/82 02/20/2023 9:05 PM INTERDISCIPLINARY PROFESSOR Pulse 92 02/20/2023 9:05 PM INTERDISCIPLINARY PROFESSOR Temperature 36.7 C (98 F) 02/20/2023 7:47 PM INTERDISCIPLINARY PROFESSOR Respiratory Rate 18 02/20/2023 9:05 PM INTERDISCIPLINARY PROFESSOR Oxygen Saturation 97% 02/20/2023 9:05 PM INTERDISCIPLINARY PROFESSOR Inhaled Oxygen Concentration - - Weight 129.3 kg (285 lb) 02/20/2023 7:48 PM INTERDISCIPLINARY PROFESSOR Height 182.9 cm (6') 02/20/2023 7:48 PM INTERDISCIPLINARY PROFESSOR Body Mass Index 38.65 02/20/2023 7:48 PM INTERDISCIPLINARY PROFESSOR Plan of Treatment Health Maintenance Due Date [...] Insurance [employer] Care Teams Director Of Tax Services Relationship Specialty Start Date End Date None, Provider, PCP - General UNKNOWN PHYSICIAN SPECIALTY 02/20/23
--- OUTSIDE RECORDS SUMMARY | 2024-06-19 08:38 | XMS_ITS ---
Author Organization [facility] Address [address] [place] [address] Care Team Providers Care Card Processing Clerk Name Role Phone Abdiaziz ZAMBRANO, [facility] Primary Care Provider Cele Chinchilla Unavailable [phone] Allergies No Known Allergies REASON FOR VISIT follow up visit, insomnia, anxiety Medications Medication SIG (Take, Route, Frequency, Duration) Notes Start Date End Date Status Gabapentin 300 MG 1 capsule Oral three times a day for 90 days Active amLODIPine Besylate 10 MG Oral 08/03/2023 Active Glimepiride 2 MG Oral 08/03/2023 Ac tive PRALUENT PEN 75 mg/mL Subcutaneous *Reorder from Buyou for eRx and Interaction Alerts* 08/03/2023 Not-Taking [...] 01/06/2024 Encounters Encounter Location Date Provider Diagnosis [facility] [address] [place] [address] 01/06/2024 Cele Dubois Primary insomnia F51.01 and [...] * LESTERDEA CRUZ GDOB:1960 (63 yo M)Acc No.[id number]:01/06/2024 Patient: DEA VILLAFUERTE Provider: Marcella DUBOIS MD :1960 A ge:63 Y S ex:Male Date:01/06/2024 [facility] Pcp:Mehnaz Freed MD Subjective: * Chief Complaints: [...] tool used for adult depression screening: [facility] Health [facility] (PHQ-9). H istory of Presenting [...] Subcutaneous , Notes to Pharmacist: *Reorder from Buyou for eRx and Interaction Alerts*, Discontinued Losartan [...] insomnia) * Billing Information: * Visit Code: 80157 OFFICE OUTPATIENT VISIT 25 MINUTES DETAILED HISTORY AND EXAM/MODERATE MEDICAL DECISION MAKING. * Procedure Codes: 89302 BEHAV ASSMT W/SCORE & DOCD/STAND INSTRUMENT. * Sign off status: Completed true * Provider: Marcella DUBOIS MD Date: 1 Generated for Angeles carrion/Duncan/Carolitting on: 0 06/19/2024 08:37 AM CDT History and Physical Notes * HPI [...]
--- OUTSIDE RECORDS SUMMARY | 2024-06-19 08:38 | XMS_ITS | CONTINUITY OF CARE DOCUMENT ---
Author Name bella blanco Address Unknown Organization [facility] Address [address] [place] [address] [address] [place] [address] Phone [phone] Care Team Providers Care Psychological Assistant Name Role Phone bella blanco Unavailable Unavailable INSURANCE PROVIDERS Payer name Policy type / Coverage type [place] red democrat [facility] [employer] insurance [employer] [id number]
--- OUTSIDE RECORDS SUMMARY | 2024-06-19 08:38 | XMS_ITS | Clinical Summary ---
Author Organization [facility] Address [address] [place] [address] Care Team Providers Care Trimming Cutter Machine Name Role Phone Garfield Parisi MD Unavailable [phone] Mehnaz Freed MD Primary Care Provider [phone] Source Comments [facility],non-owned Affiliates and Associated Physician Practices is amultiple site organization consisting of ambulatory clinics and hospital sitesin [place], [place], [place] and [place]. This disclosure is being madepursuant to the Care Everywhere program and may not contain all information available regarding this patient. Last updated 17.[facility] Allergies No known active allergies Medications * [...] 124.7 kg (275 lb) 04/10/2013 3:13 PM CANDY CUTTER HAND Height 182.9 cm (6') 04/10/2013 3:13 PM CANDY CUTTER HAND Body Mass Index 37.3 04/10/2013 3:13 PM CANDY CUTTER HAND Plan of Treatment Health Maintenance Due Date [...] age to complete this topic Care Teams Trimming Cutter Machine Relationship Specialty [place] [address] [place] [address] PCP - General Internal Medicine 04/10/13 [place] [address] [place] [address] Orthopedic Surgery 04/10/13
--- OUTSIDE RECORDS SUMMARY | 2024-06-19 08:38 | XMS_ITS | Data Portability ---
Author Organization [place] [facility] [employer], Main Office Address [address] [place] [address] Care Team Providers Care Medical Record Assistant Name Role Phone AYLIN SANCHEZ Primary Care Provider Assessment No assessment recorded. Plan of Treatment Reminders Order Date Submit Date Provider Last Modified By Organization Details Last Modified Time Details Appointments Follow Up 15 2024 11:00A M Jorge Chen MD Not available Not available Not available Lab None recorded. Referral lead sustainability specialist referral 2024 ARASH Baez MD, [address] [place] [address], [place], [address], 06/14/2024 14:55:19 Procedures None recorded. Surgeries None recorded. Imaging audiogram + tympanogr am 2024 [facility] (Audiology), [address] [place] [address], [phone], 06/14/2024 14:45:24 Medication Orders ciproflox acin 0.3 %-dexamet hasone 0.1 % ear drops,hallie pension 2024 025 [facility], [address] [facility], [place], [place], [id number], 06/14/2024 14:27:31 Patient TargetsNo targets recorded. Patient Instructions Encounter Date Encounter Id Patient Instructions Last Modified By Organization Details Last Modified Time 06/14/2024 [id number] DISCUSSED COMPLE TE LEFT TYMPANIC MEMBRANE PERFORATION WITH PATIENT AND HIS SPOUSE. CIPRODEX PRESCRIBED FOR MANAGEMENT. REFERRAL PLACED FOR DR. BAEZ TO ASSESS FOR TYMPANOPLASTY NEEDS IF INDICATED. HE WILL HAVE AN AUDIOGRAM AND TYMPANOGRAM COMPLETED. WE WILL FOLLOW UP ON THOSE RESULTS BECOME AVAILABLE. [email or web address] Not available 06/14/2024 14:28:35 Reason for Referral Automotive Sales Professional Referral for Perfo ration of left tympanic membrane Referring Physician: Carolina Santiago, Otolaryngology, Encounter Date: 06/14/2024 Results Created Date Observation Date Name Description Value Unit Range Abnormal Flag Note LastModifiedBy Organization Detail LastModifiedTime Result Notes None recorded. Problems Name Problem SNOMED Code Status Onset Date Resolution Date Notes Provider Name and Address Organization Details Recorded Time Osteoarthr itis of knee 967015838 Active Not Available Pending sale to [facility] 3 13:13:47 Disorder of prosthetic joint 758663783 Active Not Available Pending sale to [facility] 3 13:13:47 Knee pain Active Not Available Pending sale to [facility] 3 13:13:47 Vitamin D deficiency 82275194 Active Not Available Pending sale to [facility] 3 13:13:47 Chronic cough 67241641 Active 2023 Jorge Chen MD [address], [address] , [facility] 4 12:28:50 Deviated nasal septum 381992195 Active 2023 Jorge Chen MD [address] [address], [place], [address] , [facility] 4 12:28:56 Perforatio n of left tympanic membrane 1118274184094 103 Active 2024 Carolina Loera RN null, [facility] 5 14:21:29 Problem Notes None recorded. Medical Equipment None Reported. Allergies Allergen ID Allergen Name Allergen Category Reaction Reaction Severity Criticality Documentation Date Start Date Code Code System Note Provider Name and Address Organization Details Recorded Time 42159 metformin medicatio n diarrhea Not available Not available 11/24/2023 6809 RxNorm Carolina Loera RN null, [email or web address] [facility] 4 15:31:15 97105 rosuvasta tin medicatio n myalgias (muscle pain) Not available Not available 11/24/2023 04306 2 RxNorm Carolina Loera RN null, [place] [facility] 4 15:31:25 Medications Name Sig Start Date Stop Date Status Note LastModified by Organization Details LastModified Time cyclobenza bladimir 10 mg tablet Take 1 tablet 3 times a day by oral route. 11/24 completed Not Available Not Available Not Available methocarba mol 500 mg tablet active Not Available Not Available Not Available doxycyclin e hyclate 100 mg capsule 08/28 completed Not Available Not Available Not Available lisinopril 20 mg-hydroch lorothiazi de 12.5 mg tablet active Not Available Not Available Not Available azithromyc in 250 mg tablet 11/24 completed Not Available Not Available Not Available benzonatat e 200 mg capsule 06/14 completed Not Available Not Available Not Available hydrocodon e 10 mg-acetami nophen 325 mg tablet 11/24 completed Not Available Not Available Not Available doxycyclin e monohydrat e 100 mg tablet 06/14 completed Not Available Not Available Not Available sildenafil 100 mg tablet Take 1 tablet every day by oral route. active Not Available Not Available No t Available glimepirid e 2 mg tablet Take 1 tablet every day by oral route. active Not Available Not Available No t Available ketorolac 10 mg tablet active Not Available Not Available Not Available losartan 100 mg-hydroch lorothiazi de 25 mg tablet active Not Available Not Available Not Available pravastati n 10 mg tablet 08/28 completed Not Available Not Available Not Available ciprofloxa tenzin 0.3 % eye drops 08/28 completed Not Available Not Available Not Available amlodipine 10 mg tablet Take 1 tablet every day by oral route. active Not Available Not Available No t Available hydrocodon e 7.5 mg-acetami nophen 325 mg tablet 08/28 completed Not Available Not Available Not Available gabapentin 300 mg capsule Take 1 capsule 3 times a day by oral route. active Not Available Not Available No t Available cyanocobal martinez (vit B-12) 1,[address] by sublingu al route. 11/24 completed Not Available Not Available Not Available levofloxac in 500 mg tablet 08/28 completed Not Available Not Available Not Available methylpred nisolone 4 mg tablets in a dose pack 06/14 completed Not Available Not Available Not Available albuterol sulfate HFA 90 mcg/actuat ion aerosol inhaler active Not Available Not Available Not Available celecoxib 100 mg capsule active Not Available Not Available Not Available hydrocodon e 7.5 mg-acetami nophen 500 mg tablet 08/28 completed Not Available Not Available Not Available fluticason e propionate 50 mcg/actuat ion nasal spray,susp ension [place] 1 spray every day by intranas al route. 11/24 completed Not Available Not Available Not Available metformin ER 500 mg tablet,ext ended release 24 hr active Not Available Not Available Not Available cyclobenza bladimir 5 mg tablet active Not Available Not Available Not Available Rocephin 2 gram intravenou s piggyback Inject by intraven ous route. active GIVEN 06/14 AT PCP'S OFFICE Not Available Not Available Not Available ciprofloxa tenzin 0.3 %-dexameth asone 0.1 % ear drops,susp ension INSTILL 4 DROPS INTO LEFT EAR(S) BY OTIC ROUTE 2 TIMES PER DAY FOR 7 DAYS 2024 active Not Available Not Available Not Avai lable losartan-h ydrochloro thiazide 100-25 MG ORAL TABLET, TAKE ONE TABLET BY MOUTH DAILY 06/14 completed Not Available Not Available Not Available Praluent Pen 75 mg/mL subcutaneo us pen injector active Not Available Not Available Not Available evolocumab 140 mg/mL subcutaneo us syringe Inject 1 mL every 2 weeks by subcutan eous route. 11/24 completed Not Available Not Available Not Available albuterol sulf 90 mcg/actuat ion breath activated powder inhaler,se nsor Inhale 2 puffs every 4 hours by inhalati on route. active Not Available Not Available No t Available Vitals Date Recorded Body height Body mass index (BMI) Body weight Body temperature Provider Name and Address Organization Details Last Updated DateTime 11/25/2023 182.88 cm 38.5 kg/m2 618740.95 g 97.9 [degF] GRACIELA Mccrary [place] [facility] [employer] [facility] 11/25/2023 12:02:57 Date Recorded Body height Body mass index (BMI) Body weight Body temperature Provider Name and Address Organization Details Last Updated DateTime 06/14/2024 182.88 cm 37.4 kg/m2 201481.49 g 97.7 [degF] Carolina Loera RN [facility] [employer] [facility] 06/14/2024 14:10:38 Social History Question Answer Notes LastModified by Organizat ion Details LastModified Time Tobacco Smoking Status Never Smoker Carolina Loera RN null, [facility] [employer] [facility] 11/25/2023 09:00:54 What Is Your Level Of [...] SNOMED-CT Code Diagnosis ICD10 Code Diagnosis Note [id number] Jorge Chen MD [facility] [place] [address] [place] [address] 11/25/2023 11:47:57 11/25/2023 13:53:20 Chronic cough 40153158 R05.3 Deviated nasal septum 12 4023149 J34.2 [id number] AYO Kennedy [facility] [place] [address] [place] [address] 06/14/2024 13:56:19 06/14/2024 14:29:10 Perforation of left tympanic membrane 6634212259 786365 H72.92 Health Concerns Section Related Observation LastModified by Organization Detai ls LastModified Time None Recorded Concern Status LastModified by Organization Details LastModified Time None Recorded Advance Directives Directive None Recorded Payers Encounter Date Sequence Insurance Name Policy Number Policy Askew Covered Member ID Askew Member ID Guarantor Name 11/25/2023 1 [facility] - DOS PRIOR TO 2024 (PPO) Prieto Gilltcher [id number] [facility] Prieto Fiore Moncho 06/14/2024 1 [employer] - CHOICE (POS II) [id number] Prieto Gilltcher [id number] Prieto Fiore Ivan Notes Date Note Type Note Provider [...] is on nasal CPAP Jorge Chen MD [address] [facility] [address], [place], [address], [email or web address] [facility] [employer] 11/25/2023 12:29:42 06/14/2024 text/html this patient has a past medical history significant for vitamin-D deficiency, osteoarthritis, and a chronic cough who presents to the office for complaint of a perforated left eardrum that occurred today. He notes underlying nasal congestion that had begun 3 days ago. He states on Wednesday he developed the left otalgia. This morning he awoke with bloody drainage from left ear. He had seen his PCP this morning and was given a 2 mg dose of Rocephin IM and advised to see ENT for anything else was prescribed. He also notes that he continues to have a chronic cough despite stopping his lisinopril and we will schedule an appointment to see Dr. Chen for further management. AYO Kennedy [address], [facility] [address], [place], [address], [facility] 06/14/2024 14:28:39
--- OUTSIDE RECORDS SUMMARY | 2024-06-19 08:38 | XMS_ITS | Continuity of Care Document ---
Author Organization [facility]erg[facility] with [facility] Address [address] [place] [address] [address] [place] [address] Phone Care Team Providers Care Hop Farmer Name Role Phone Krista Garsia Unavailable Unavailable Procedures Procedure Date Remove Foreign Body From Eye Advance Directives Directive Yes / No Effective Date File Name No Information Encounters Encounter Description Practice Location Reason(s) For Visit Diagnoses Date Provider Providers Copied on Encounter [facility], [address], [place], [place], [id number], [place] tel:[phone] [facility] [place] No Information 8-[address]. [address] [facility] , [address], [place], [address], [place]. tel:[phone] Family History Family Member Type Diagnosis Age At Onset No Information Payers Payer name Insurance type Covered constitution party ID Authoriza tion(s) Edy Camilo [id number] Social History Type Description Quantity Date Captured [...]
== END 2024-06-19 08:22 | disposition home or self-care (01) ==
LOC: CHSIMG 08:23
PROVIDERS: PCP Internal Medicine; Visit Provider Internal Medicine
DX: R05.9 Cough, unspecified (principal)
CPT/HCPCS: 70491; 71250; Q9967

== ENCOUNTER 2024-06-21 14:21 | Outpatient (CLI) | payer OTHER, SELFPAY ==
--- NOTE | ~2024-06-21 | CT_ITS ---
EXAMINATION: CT sinus wo con DATE: 06/21/2024 14:39 INDICATION: Chronic sinusitis. Facial pain. TECHNIQUE: Computed tomography (CT) of the paranasal sinuses was performed without intravenous contra st. The dose-length product was 399.77 mGy-cm. Automated exposure control and iterative reconstructio n technique were employed. COMPARISON: CT dated 03/11/2006 FINDINGS: There is mucosal thickening of the right maxillary sinus with mucoperiosteal reaction, cons istent with chronic sinusitis. Hypertrophy of the right inferior turbinate. There is occlusion of the right ostiomeatal unit. Left ostiomeatal unit is patent. Mild mucosal thickening left maxillary sinu s. Minimal mucosal thickening of the anterior ethmoid air cells. The frontal and sphenoid sinuses are unremarkable. There is a left mastoid effusion. IMPRESSION: 1. Mild-moderate sinus disease with probable chronic right maxillary sinusitis. 2: Left mastoid effusion. Reviewed, dictated and finalized at location A.
--- OUTSIDE RECORDS SUMMARY | 2024-06-21 15:49 | XMS_ITS ---
Author Organization [facility] Address [facility] [address] Care Team Providers Care Heat Set Operator Name Role Phone Abdiaziz ZAMBRANO, Mehnaz Primary Care Provider Cele Chinchilla Unavailable [phone] REASON FOR VISIT No calls, No messages Social History Sex Assigned At : Social History Observation Description Sex Assigned At Male Encounters Encounter Location Date Provider Diagnosis [facility] [employer] [place] [address] [address] 04/21/2024 Cele Dubois Plan Of Treatment No Information Progress Notes * DEA LESTER GDOB:1960 (63 yo M)Acc No.[id number]:04/21/2024 Patient: DEA VILLAFUERTE Provider: Marcella DUBOIS MD :1960 A ge:63 Y S ex:Male Date:04/21/2024 [id number] Pcp:Mehnaz Freed MD Subjective: * Chief Complaints: * 1 . No calls, No messages. * Medical History: Objective: * Vitals: Assessment: Plan: * Treatment: * Procedure Codes: N S NO SHOW * Billing Information: * Visit Code: * Procedure Codes: NS NO SHOW. * CRUSHER OPERATOR Sign off status: Completed true * Provider: Marcella DUBOIS MD Date: 0 04/21/2024 Generated for Printi ng/Duncan/eTransmitting on: 0 06/21/2024 03:49 PM CDT
--- OUTSIDE RECORDS SUMMARY | 2024-06-21 15:50 | XMS_ITS | Clinical Summary ---
Author Organization [facility] Address [address] [place] [address] Care Team Providers Care Thickener Operator Name Role Phone Garfield Parisi MD Unavailable [phone] Mehnaz Freed MD Primary Care Provider [phone] [facility] [employer],non-owned Affiliates and Associated Physician Practices is amultiple site organization consisting of ambulatory clinics and hospital sitesin [place], [place], [place] and [place]. This disclosure is being madepursuant to the Care Everywhere program and may not contain all information available regarding this patient. Last updated 17.[facility] [employer] Allergies No known active allergies Medications * [...] 124.7 kg (275 lb) 04/10/2013 3:13 PM CARDIAC EXERCISE PHYSIOLOGIST Height 182.9 cm (6') 04/10/2013 3:13 PM CARDIAC EXERCISE PHYSIOLOGIST Body Mass Index 37.3 04/10/2013 3:13 PM CARDIAC EXERCISE PHYSIOLOGIST Plan of Treatment Health Maintenance Due Date [...] age to complete this topic Care Teams Thickener Operator Relationship Specialty [place] [address] [place] [address] PCP - General Internal Medicine 04/10/13 [place] [address] [place] [address] Orthopedic Surgery 04/10/13
--- OUTSIDE RECORDS SUMMARY | 2024-06-21 15:50 | XMS_ITS ---
Author Organization [facility] [employer] Address [address] [place] [address] Care Team Providers Care Therapeutic Sales Specialist Name Role Phone Abdiaziz ZAMBRANO, Yarelycox [place] Primary Care Provider Cele Chinchilla Unavailable [phone] Allergies No Known Allergies REASON FOR VISIT follow up visit, insomnia, anxiety Medications Medication SIG (Take, Route, Frequency, Duration) Notes Start Date End Date Status Gabapentin 300 MG 1 capsule Oral three times a day for 90 days Active amLODIPine Besylate 10 MG Oral 08/03/2023 Active Glimepiride 2 MG Oral 08/03/2023 Ac tive PRALUENT PEN 75 mg/mL Subcutaneous *Reorder from [employer] for eRx and Interaction Alerts* 08/03/2023 Not-Taking [...] 01/06/2024 Encounters Encounter Location Date Provider Diagnosis [employer] [address] [place] [address] 01/06/2024 Cele Dubois Primary insomnia F51.01 and [...] * LESTERDEA CRUZ GDOB:1960 (63 yo M)Acc No.[id number]:01/06/2024 Patient: DEA VILLAFUERTE Provider: Marcella DUBOIS MD :1960 A ge:63 Y S ex:Male Date:01/06/2024 Address:[facility] Pcp:Mehnaz Freed MD Subjective: * Chief Complaints: [...] tool used for adult depression screening: [facility] Health Questionnaire (PHQ-9). H istory of Presenting [...] Subcutaneous , Notes to Pharmacist: *Reorder from [employer] for eRx and Interaction Alerts*, Discontinued Losartan [...] insomnia) * Billing Information: * Visit Code: 41712 OFFICE OUTPATIENT VISIT 25 MINUTES DETAILED HISTORY AND EXAM/MODERATE MEDICAL DECISION MAKING. * Procedure Codes: 47118 BEHAV ASSMT W/SCORE & DOCD/STAND INSTRUMENT. * Sign off status: Completed true * Provider: Marcella DUBOIS MD Date: 1 Generated for [place] carrion/Duncan/Carolitting on: 0 06/21/2024 03:49 PM CDT History and Physical Notes * [...]
--- OUTSIDE RECORDS SUMMARY | 2024-06-21 15:50 | XMS_ITS | Patient Health Record ---
Author Organization [facility] [employer] Address [address] [place] [address] Care Team Providers Care Windshield Installer Name Role Phone Abdiaziz ZAMBRANO, Mehnaz Primary Care Provider Cele Chinchilla Unavailable [phone] Migration, Provider Unavailable Unavailable Allergies No Known Allergies Reason For Referral No Information Medications Medication SIG (Take, Route, Frequency, Duration) Notes Start Date End Date Status Triamterene-HCTZ 37.5-25 MG Oral for 30 Days Active amLODIPine Besylate 10 MG Oral 08/03/2023 Active Glimepiride 2 MG Oral 08/03/2023 Ac tive PRALUENT PEN 75 mg/mL Subcutaneous *Reorder from dot429 for eRx and Interaction Alerts* 08/03/2023 Not-Taking [...] 01/06/2024 Encounters Encounter Location Date Provider Diagnosis [facility] [employer] [address] [place] [address] 08/03/2023 Cele Dooley Other specified anxiety disorders F41.8 and Primary insomnia F51.01 [facility] [employer] [facility] [address] [place] [address] 01/06/2024 Thena Soumya Primary insomnia F51.01 and Other specified anxiety disorders F41.8 [address] [facility] [address] [facility] [address] [place] [address] 04/21/2024 Thena Soumya [address] [facility] [address] [address] 08/07/2023 Provider Migration [address] [address] 08/08/2023 Provider Migration Assessments Encounter Date Diagnosis [...] Insured Coverage Start Date Coverage End Date [facility] [address] [address] [place] [address] [id number] Nu [id number] GAUDENCIO LESTER Spouse - patient is the spouse of the insured Medical (General) History Medical History History ICD Code Problems: Mixed anxiety and depressive d isorder Opioid withdrawal Primary insomnia , Surgical History Surgery Date(Month/Year) Other
--- OUTSIDE RECORDS SUMMARY | 2024-06-21 15:50 | XMS_ITS | Continuity of Care Document ---
Author Organization [facility] Address [address] [place] [address] [address] [place] [address] Phone Care Team Providers Care Container Coordinator Name Role Phone Krista Garsia Unavailable Unavailable Procedures Procedure Date Remove Foreign Body From Eye Advance Directives Directive Yes / No Effective Date File Name No Information Encounters Encounter Description Practice Location Reason(s) For Visit Diagnoses Date Provider Providers Copied on Encounter [facility], [address], [place], [place], [id number], [place] tel:[phone] [facility] [place] No Information 8-[address]as[address]. [address] [facility] , [address], [place], [address], [place]. tel:[phone] Family History Family Member Type Diagnosis Age At Onset No Information Payers Payer name Insurance type Covered libertarian ID Authoriza tion(s) Edy Camilo [id number] Social History Type Description Quantity Date Captured [...]
--- OUTSIDE RECORDS SUMMARY | 2024-06-21 15:50 | XMS_ITS | Clinical Summary ---
Author Organization [facility] Address [address] [place] [address] Care Team Providers Care Final Inspector Paper Name Role Phone Mehnaz Freed MD Primary Care Provider Allergies Active Allergy Reactions Criticality Noted Date Comments Shrimp Redness Low 05/12/2021 ---can eat, just turns eyes red, no SOB Xbhapij-Yjf-Ilx Reductase Inhibitors Joint pain Low 05/12/2021 Medications [...] (04/02/2021): Added automatically from request for surgery [id number] Arthritis of carpometacarpal (CMC) joint of left thumb 07/10/2020 Overview (07/10/2020): Added automatically from request for surgery [id number] Arthritis of carpometacarpal (CMC) joint of righ t thumb 03/20/2020 Overview (03/20/2020): Added automatically from request for surgery [id number] Encounters Date Type Department Care Team Description 06/15/2024 Telephone [facility] Advanced [facility] ([facility]) - [facility] ENT [address] [facility] 11th [place] [address] [place] [address] Butt, Keri, [place] from Last 3 Months [...] on file 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 Gender Identity Not on file Sexual Orientation Not on file 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 file Not on file Not [...] season) 2023 02/10/2021, 07/24/2020, 06/25/2020 Influenza Vaccine (Season Ended) 2024 12/30/2020, 01/31/2019, 12/08/2017, Additional history exists Zoster Vaccine Completed 03/21/2020, 09/27/2019 Medical Devices Implanted Type Area Database Tester Device Identifier Shelf Expiration Date Model / Serial / Lot [employer] Simplex P Radiopaque Full Dose Cement Bone Sterile 6191-1-010 - Sna - [id number] Implanted:Qty: 1 on 10/21/2021 by Alirio Buenrostro MD at [facility] Bone Cement [employer] 02/19/2024 6191-1-010 / NA / [id number] Description:Implant times ap proximate [employer] Head Resurfacing Shoulder Inhance 40mm Large [id number] - Sna - [id number] Implanted:Qty: 1 on 10/21/2021 by Alirio Buenrostro MD at [facility] Other - see comments Left: Shoulder [employer] [id number] 05/19/2026 [id number] / NA / [id number] Inhance Shoulder System Anatomic Offset Taper Adapter Implanted:Qty: 1 on 10/21/2021 by Alirio Buenrostro MD at [facility] Other - see comments Left: Shoulder DEPU[employer] [id number] 01/19/2026 0 / NA / [id number] Description:[id number] N71359 200.00 SEE SUPPLY PAGE FOR CHARGE INFO [employer] Head Humeral Shoulder Inhance 17x48.5mm [employer]ium [id number] - Sna - [id number] Implanted:Qty: 1 on 10/21/2021 by Alirio Buenrostro MD at [facility] Other - see comments Left: Shoulder [employer] [id number] 01/19/2026 [id number] / NA / [id number] [employer] Component Glenoid Anatomic Inhance 29mm Polyethylene Large [id number] - Sna - [id number] Implanted:Qty: 1 on 10/21/2021 by Alirio Buenrostro MD at [facility] Other - see comments Left: Shoulder [employer] [id number] 02/18/2026 [id number] / NA / [id number] [employer] Ar-8978-Cp Internalbrace Kit Hand Wrist Set Implant Ligament Augmentation - [id number] Implanted:Qty: 1 on 04/22/2020 by Ghassan Brady MD at [facility] Right: Wrist [employer] 11/19/2024 AR-8978-CP / / [id number] [employer] Ar-8978-Cp Internalbrace Kit Hand Wrist Set Implant Ligament Augmentation - [id number] Implanted:Qty: 1 on 08/05/2020 by Ghassan Brady MD at [facility] Left: Hand [employer] 05/19/2025 AR-8978-CP / / [id number] [employer] 6191-1-010 Simplex P Radiopaque Full Dose Cement Bone Sterile - [id number] Implanted:Qty: 1 on 05/23/2021 by Alirio Buenrostro MD at [facility] Right: Shoulder [employer] 05/20/2023 6191-1-010 / / [id number] Inhance Shoulder System Anatomic Glenoid 31.5mm X-Large Implanted:Qty: 1 on 05/23/2021 by Alirio Buenrostro MD at [facility] Right: Shoulder [employer] [id number] 11/19/2025 0 / / [id number] Inhance Shoulder System Anatomic Offset Taper Adapter Implanted:Qty: 1 on 05/23/2021 by Alirio Buenrostro MD at [facility] Right: Shoulder [employer] [id number] 11/19/2025 0 / / [id number] Inhance Shoulder System Short Stem [id number] Large Implanted:Qty: 1 on 05/23/2021 by Alirio Buenrostro MD at [facility] Right: Shoulder [employer] 11/19/2025 5199-03-25 0 / / [id number] Inhance Shoulder System Humeral Head 48.5mmx 17mm Implanted:Qty: 1 on 05/23/2021 by Alirio Buenrostro MD at [facility] Right: Shoulder [employer] 10/19/2025 0 / / [id number] Procedures Procedure Name Priority Date/Time Associated Diagnosis Comments EGFR Routine 10/08/2021 12:29 PM CDT Shoulder arthritis Preoperative testing POCT HEMOGLOBIN A1C Routine 10/08/2021 1 2:22 PM CDT from Last 3 Months or Most Recently Relevant to Health Maintenance Results * eGFR (10/08/2021 12:29 PM CDT) eGFR >90 90 - 130 mL/min/1. 73 m2 [facility] Comment: Interpretive Data Reference Interval Normal [...] MD LAB BLOOD ORDERABLES F inal Result [facility] [place] [address] * POCT hemoglobin A1c (10/08/2021 12:22 PM CDT) Pathologist [facility] Hgb A1C, POC 5.6 4.0 - 5.6 % [facility] Est Average Gluc POC 114 mg/dL [facility] Comment: The ADA recommends reporting an estimated Average Glucose (eAG) with all Hemoglobin A1c results using the equation derived from a study of 507 normal and diabetic adults. Minority populations were underrepresented and children were not included. (Diabetes Care 31:5439-7546, 2008). The eAG is not equivalent to a fasting glucose. Blood 10/08/2021 12:2 2 PM CDT 10/08/2021 12:22 PM CDT us Alirio Buenrostro MD POINT OF CARE TEST ORD ERABLES Final Result [facility] [place] [address] from Last 3 Months or Most Recently Relevant to Health Maintenance Insurance [facility] HMO UMR OPTIONS PPO [place] BUREAU OF DISABILITY Advance Directives For more information, please contact: [phone] * Full Code (Latest Code Status on File) Date Activated Date Inactivated Comments 10/21/2021 11:09 AM 10/21/2021 10:54 PM * Full Code Date Activated Date Inactivated Comments 05/23/2021 12:26 PM 05/23/2021 11:19 PM Care Teams Final Inspector Paper Relationship Specialty Start Date End Date Mehnaz Freed MD [address] [place] [address] PCP - General 09/16/16
--- OUTSIDE RECORDS SUMMARY | 2024-06-21 15:50 | XMS_ITS | Referral Summary ---
Author Organization [facility] Address [address] [place] [address] Care Team Providers Care Flag Decorator Name Role Phone Mehnaz Freed MD Primary Care Provider Encounters Date Type Department Care Team Description 06/15/2024 Telephone [facility] ([facility]) - [facility] ENT [address] [facility] 11th [place] [address] [place] [address] Keri Butt [place] from Last 3 Months Allergies Active Allergy Reactions Criticality Noted Date Comments Shrimp Redness Low 05/12/2021 ---can eat, just turns eyes red, no SOB Clpijnv-Bbo-Num Reductase Inhibitors Joint pain Low 05/12/2021 Medications [...] (04/02/2021): Added automatically from request for surgery [id number] Arthritis of carpometacarpal (CMC) joint of left thumb 07/10/2020 Overview (07/10/2020): Added automatically from request for surgery [id number] Arthritis of carpometacarpal (CMC) joint of righ t thumb 03/20/2020 Overview (03/20/2020): Added automatically from request for surgery [id number] Immunizations Immunization Administration Dates Next Due Influenza, [...] on file 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 Gender Identity Not on file Sexual Orientation Not on file 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 file Not on file Not [...] on file Medical Devices Implanted Type Area Hospitality Coordinator Device Identifier Shelf Expiration Date Model / Serial / Lot [employer] Simplex P Radiopaque Full Dose Cement Bone Sterile 6191-1-010 - Sna - [id number] Implanted:Qty: 1 on 10/21/2021 by Alirio Buenrostro MD at [facility] Bone Cement [employer] 02/19/2024 6191-1-010 / NA / [id number] Description:Implant times ap proximate [employer] Head Resurfacing Shoulder Inhance 40mm Large [id number] - Sna - [id number] Implanted:Qty: 1 on 10/21/2021 by Alirio Buenrostro MD at [facility] Other - see comments Left: Shoulder [employer] [id number] 05/19/2026 [id number] / NA / [id number] Inhance Shoulder System Anatomic Offset Taper Adapter Implanted:Qty: 1 on 10/21/2021 by Alirio Buenrostro MD at [facility] Other - see comments Left: Shoulder [employer] [id number] 01/19/2026 / NA / [id number] Description:337362897 L11390 200.00 SEE SUPPLY PAGE FOR CHARGE INFO [employer] Head Humeral Shoulder Inhance 17x48.5mm [place] Chromium [id number] - Sna - [id number] Implanted:Qty: 1 on 10/21/2021 by Alirio Buenrostro MD at [facility] Other - see comments Left: Shoulder [employer] Inc [id number] 01/19/2026 [id number] / NA / [id number] [employer] Component Glenoid Anatomic Inhance 29mm Polyethylene Large [id number] - Sna - [id number] Implanted:Qty: 1 on 10/21/2021 by Alirio Buenrostro MD at [facility] Other - see comments Left: Shoulder [employer] Inc [id number] 02/18/2026 [id number] / NA / [id number] [employer] Inc Ar-8978-Cp Internalbrace Kit Hand Wrist Set Implant Ligament Augmentation - [id number] Implanted:Qty: 1 on 04/22/2020 by Ghassan Brady MD at [facility] Right: Wrist [employer] 11/19/2024 AR-8978-CP / / [id number] [employer] Ar-8978-Cp Internalbrace Kit Hand Wrist Set Implant Ligament Augmentation - [id number] Implanted:Qty: 1 on 08/05/2020 by Ghassan Brady MD at [facility] Left: Hand [employer] 05/19/2025 AR-8978-CP / / [id number] [employer] 6191-1-010 Simplex P Radiopaque Full Dose Cement Bone Sterile - [id number] Implanted:Qty: 1 on 05/23/2021 by Alirio Buenrostro MD at [facility] Right: Shoulder [employer] 05/20/2023 6191-1-010 / / [id number] Inhance Shoulder System Anatomic Glenoid 31.5mm X-Large Implanted:Qty: 1 on 05/23/2021 by Alirio Buenrostro MD at [facility] Right: Shoulder [employer] [id number] 11/19/2025 0 / / [id number] Inhance Shoulder System Anatomic Offset Taper Adapter Implanted:Qty: 1 on 05/23/2021 by Alirio Buenrostro MD at [facility] Right: Shoulder [employer] [id number] 11/19/2025 0 / / [id number] Inhance Shoulder System Short Stem [id number] Large Implanted:Qty: 1 on 05/23/2021 by Alirio Buenrostro MD at [facility] Right: Shoulder [employer] 11/19/2025 5199-03-25 0 / / [id number] Inhance Shoulder System Humeral Head 48.5mmx 17mm Implanted:Qty: 1 on 05/23/2021 by Alirio Buenrostro MD at [facility] Right: Shoulder [employer] 10/19/2025 0 / / [id number] Procedures Procedure Name Priority Date/Time Associated Diagnosis Comments EGFR Routine 10/08/2021 12:29 PM CDT Shoulder arthritis Preoperative testing POCT HEMOGLOBIN A1C Routine 10/08/2021 1 2:22 PM CDT from Last 3 Months or Most Recently Relevant to Health Maintenance Results * eGFR (10/08/2021 12:29 PM CDT) eGFR >90 90 - 130 mL/min/1. 73 m2 [facility] Comment: Interpretive Data Reference Interval Normal [...] MD LAB BLOOD ORDERABLES F inal Result [facility] [place] [address] * POCT hemoglobin A1c (10/08/2021 12:22 PM CDT) Hgb A1C, POC 5.6 4.0 - 5.6 % [facility] Est Average Gluc POC 114 mg/dL [facility] Comment: The ADA recommends reporting an estimated Average Glucose (eAG) with all Hemoglobin A1c results using the equation derived from a study of 507 normal and diabetic adults. Minority populations were underrepresented and children were not included. (Diabetes Care 31:9965-3642, 2008). The eAG is not equivalent to a fasting glucose. Blood 10/08/2021 12:2 2 PM CDT 10/08/2021 12:22 PM CDT Alirio Buenrostro MD POINT OF CARE TEST ORD ERABLES Final Result [facility] [place] [address] from Last 3 Months or Most Recently Relevant to Health Maintenance Insurance [facility] HMO UMR OPTIONS PPO [place] BUREAU OF DISABILITY Advance Directives For more information, please contact: [phone] * Full Code (Latest Code Status on File) Date Activated Date Inactivated Comments 10/21/2021 11:09 AM 10/21/2021 10:54 PM * Full Code Date Activated Date Inactivated Comments 05/23/2021 12:26 PM 05/23/2021 11:19 PM Care Teams Flag Decorator Relationship Specialty Start Date End Date Mehnaz Freed MD [address] [place] [address] PCP - General 09/16/16
--- OUTSIDE RECORDS SUMMARY | 2024-06-21 15:50 | XMS_ITS | Clinical Summary ---
Author Organization [facility] Address [address] [place] [address] Care Team Providers Care Vehicle Cost Engineer Name Role Phone None, Provider MD Primary [...] Comments Blood Pressure 152/82 02/20/2023 9:05 PM UROLOGIST Pulse 92 02/20/2023 9:05 PM UROLOGIST Temperature 36.7 C (98 F) 02/20/2023 7:47 PM UROLOGIST Respiratory Rate 18 02/20/2023 9:05 PM UROLOGIST Oxygen Saturation 97% 02/20/2023 9:05 PM UROLOGIST Inhaled Oxygen Concentration - - Weight 129.3 kg (285 lb) 02/20/2023 7:48 PM UROLOGIST Height 182.9 cm (6') 02/20/2023 7:48 PM UROLOGIST Body Mass Index 38.65 02/20/2023 7:48 PM UROLOGIST Plan of Treatment Health Maintenance Due Date [...] Insurance [employer] Care Teams Vehicle Cost Engineer Relationship Specialty Start Date End Date None, Provider, PCP - General UNKNOWN PHYSICIAN SPECIALTY 02/20/23
--- OUTSIDE RECORDS SUMMARY | 2024-06-21 15:50 | XMS_ITS | Data Portability ---
Author Organization [facility], Main Office Address [address] [place] [address] Care Team Providers Care Copper Plate Printer Name Role Phone AYLIN SANCHEZ Primary Care Provider Assessment No assessment recorded. Plan of Treatment Reminders Order Date Submit Date Provider Last Modified By Organization Details Last Modified Time Details Appointments Follow Up 15 2024 11:00A M Jorge Chen MD Not available Not available Not available Lab None recorded. Referral manager foreign referral 2024 ARASH Baez MD, [address] [place] [address], [place], [address], 06/14/2024 14:55:19 Procedures None recorded. Surgeries None recorded. Imaging audiogram + tympanogr am 2024 [facility] (Audiology), [address] [place] [address], [phone], 06/14/2024 14:45:24 Medication Orders ciproflox acin 0.3 %-dexamet hasone 0.1 % ear drops,hallie pension 2024 025 [place] [facility], [address] [facility], [place], [place], [id number], 06/14/2024 14:27:31 Patient TargetsNo targets recorded. Patient Instructions Encounter Date Encounter Id Patient Instructions Last Modified By Organization Details Last Modified Time 06/14/2024 [id number] DISCUSSED COMPLE TE LEFT TYMPANIC MEMBRANE PERFORATION WITH PATIENT AND HIS SPOUSE. CIPRODEX PRESCRIBED FOR MANAGEMENT. REFERRAL PLACED FOR DR. BAEZ TO ASSESS FOR TYMPANOPLASTY NEEDS IF INDICATED. HE WILL HAVE AN AUDIOGRAM AND TYMPANOGRAM COMPLETED. WE WILL FOLLOW UP ON THOSE RESULTS BECOME AVAILABLE. [email or web address] Not available 06/14/2024 14:28:35 Reason for Referral Manager Economic Referral for Perfo ration of left tympanic membrane Referring Physician: Carolina Santiago, Otolaryngology, Encounter Date: 06/14/2024 Results Created Date Observation Date Name Description Value Unit Range Abnormal Flag Note LastModifiedBy Organization Detail LastModifiedTime Result Notes None recorded. Problems Name Problem SNOMED Code Status Onset Date Resolution Date Notes Provider Name and Address Organization Details Recorded Time Osteoarthr itis of knee 532254609 Active Not Available [facility] 3 13:13:47 Disorder of prosthetic joint 440158075 Active Not Available [facility] 3 13:13:47 Knee pain Active Not Available [facility] 3 13:13:47 Vitamin D deficiency 12817048 Active Not Available [facility] 3 13:13:47 Chronic cough 05746402 Active 2023 Jorge Chen MD [address], [place], [address] , [employer] 4 12:28:50 Deviated nasal septum 518702049 Active 2023 Jorge Chen MD [address], [place], [address] , [email or web address] [facility] 4 12:28:56 Perforatio n of left tympanic membrane 7277158222727 103 Active 2024 Carolina Loera RN null, [employer] [facility] 5 14:21:29 Chronic sinusitis 79933276 Active 2024 Carolina Loera RN null, [facility] [employer] [facility] 5 12:09:06 Chronic sinusitis 05431799 Active 2024 Jorge Chen MD [address], [place], [address] , [employer] [facility] 5 12:11:31 Problem Notes None recorded. Medical Equipment None Reported. Allergies Allergen ID Allergen Name Allergen Category Reaction Reaction Severity Criticality Documentation Date Start Date Code Code System Note Provider Name and Address Organization Details Recorded Time 17414 metformin medicatio n diarrhea Not available Not available 11/24/2023 [address], [facility] 15:31:15 28832 rosuvasta tin medicatio n myalgias (muscle pain) Not available Not available 11/24/2023 69693 2 Nia Loera RN null, [facility] 4 15:31:25 Medications Name Sig Start Date [...] propionate 50 mcg/actuat ion nasal spray,susp ension [place] 1 spray every day by intranas al [...] Updated DateTime 11/25/2023 182.88 cm 38.5 kg/m2 206068.95 g 97.9 [degF] Linda GRACIELA Toledo [facility] [employer] 11/25/2023 12:02:57 Date Recorded Body height Body mass index (BMI) Body weight Body temperature Provider Name and Address Organization Details Last Updated DateTime 06/14/2024 182.88 cm 37.4 kg/m2 972318.49 g 97.7 [degF] Carolina Loera RN [facility] [employer] 06/14/2024 14:10:38 Date Recorded Body height Body mass index (BMI) Body weight Body temperature Provider Name and Address Organization Details Last Updated DateTime 06/21/2024 182.88 cm 37.6 kg/m2 435508.24 g 98 [degF] Carolina Loera RN [facility] [employer] [facility] 06/21/2024 11:58:06 Social History Question Answer Notes LastModified by Organizat ion Details LastModified Time Tobacco Smoking Status Never Smoker Carolina Loera RN [facility], [facility] [employer] 11/25/2023 09:00:54 What Is Your Level Of [...] 09:00:42 Notes:NO ENT Medical History Condition Response HIGH CHOLESTEROL / HYPERLIPIDEMIA Y DEPRESSION (INCLUDING POST ) Y BACK / NECK PROBLEMS Y DIABETES, TYPE Y ENT Y SLEEP DISORDER Y HYPERTENSION Y Past Encounters Encounter ID Performer Location Encounter Start Date Encounter Closed Date Diagnosis/Indication Diagnosis SNOMED-CT Code Diagnosis ICD10 Code Diagnosis Note [id number] Jorge Chen MD [facility] [place] [address] [place] [address] 11/25/2023 11:47:57 11/25/2023 13:53:20 Chronic cough 98045621 R05.3 Deviated nasal septum 12 9742581 J34.2 [id number] Carolina CrookAYO shields [facility] [place] [address] [place] [address] 06/14/2024 13:56:19 06/14/2024 14:29:10 Perforation of left tympanic membrane 4240611033 659212 H72.92 [id number] Jorge Chen MD [facility] [place] [address] [place] [address] 06/21/2024 11:53:28 06/21/2024 12:12:08 Chronic cough 20375578 R05.3 Chronic sinusitis 434921 00 J32.9 Health Concerns Section Related Observation LastModified by Organization Detai ls LastModified Time None Recorded Concern Status LastModified by Organization Details LastModified Time None Recorded Advance Directives Directive None Recorded Payers Encounter Date Sequence Insurance Name Policy Number Policy Askew Covered Member ID Askew Member ID Guarantor Name 11/25/2023 1 [facility] - [facility] - DOS PRIOR TO 2024 (PPO) Prieto Ivan [id number] [facility] Prieto Ivan 06/14/2024 1 [employer] - CHOICE (POS II) [id number] Prieto Ivan [id number] Prieto Ivan 06/21/2024 1 [employer] - CHOICE (POS II) [id number] Prieto Ivan [id number] Prieto Ivan Notes Date Note Type Note [...] is on nasal CPAP Jorge Chen MD [address] [place] [address], [place] [address], [place], [address], [facility] [employer] 11/25/2023 12:29:42 06/14/2024 text/html this patient has [...] Dr. Chen for further management. AYO Kennedy [address], [place], [address], [employer] 06/14/2024 14:28:39 06/21/2024 text/html this patient reports a chronic cough for 2 years. He discontinued his lisinopril but the cough persisted. He recently had a neck CT which was normal. He has not seen a facilities administrator but does have a pulmonary function study scheduled Jorge Chen MD [address], [place], [address], [employer] 06/21/2024 12:12:06
--- OUTSIDE RECORDS SUMMARY | 2024-06-21 15:50 | XMS_ITS ---
Author Organization [facility] Address [facility] [place] [address] Care Team Providers Care Dye Blender Name Role Phone Abdiaziz ZAMBRANO, Mehnaz Primary Care Provider Cele Chinchilla Unavailable [phone] Social History Sex Assigned At : Social History Observation Description Sex Assigned At Male Encounters Encounter Location Date Provider Diagnosis [facility] [employer] [place] [id number] [place] [address] 04/06/2024 Munaa Soumya Plan Of Treatment No Information Progress Notes * DEA LESTER GDOB:1960 (63 yo M)Acc No.[id number]:04/06/2024 Patient: DEA VILLAFUERTE Provider: Marcella DUBOIS MD :1960 A ge:63 Y S ex:Male Date:04/06/2024 Address:[address] [facility] [facility] Pcp:Mehnaz Freed MD Subjective: * Chief Complaints: * * Medical History: Objective: * Vitals: Assessment: Plan: * Treatment: * Billing Information: * Visit Code: * Procedure Codes: * Electronic signature of Muna Dubois MD on 06/21/2024 at 03:49 PM CDT Sign off status: Pending * Provider: Marcella DUBOIS MD Date: 0 04/06/2024 Generated for Printi ng/Faxing/eTransmitting on: 0 06/21/2024 03:49 PM CDT
--- OUTSIDE RECORDS SUMMARY | 2024-06-21 15:50 | XMS_ITS | CONTINUITY OF CARE DOCUMENT ---
Author Name bella blanco Address Unknown Organization [facility] Address [address] [place] [address] [address] [place] [address] Phone [phone] Care Team Providers Care Plastics Design Engineer Name Role Phone bella blanco Unavailable Unavailable INSURANCE PROVIDERS Payer name Policy type / Coverage type [place] red green party ID [facility] Definition 6 insurance [employer] [id number]
--- OUTSIDE RECORDS SUMMARY | 2024-06-21 15:50 | XMS_ITS | Encounter Summary ---
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
== END 2024-06-21 14:22 | disposition home or self-care (01) ==
LOC: CHSIMG 14:22
PROVIDERS: PCP Internal Medicine; Visit Provider Otolaryngology
DX: J32.9 Chronic sinusitis, unspecified (principal); H74.8X2 Other specified disorders of left middle ear and mastoid
CPT/HCPCS: 70486

== ENCOUNTER 2024-06-30 11:39 | Outpatient (CLI) | payer OTHER, SELFPAY ==
--- OUTSIDE RECORDS SUMMARY | 2024-06-30 11:57 | XMS_ITS ---
Author Organization [facility] [address] [facility] Address [facility] [place] [address] Care Team Providers Care Partner Management Consultant Name Role Phone Abdiaziz ZAMBRANO, Mehnaz Primary Care Provider Cele Chinchilla Unavailable [phone] Social History Sex Assigned At : Social History Observation Description Sex Assigned At Male Encounters Encounter Location Date Provider Diagnosis [facility] [address] [address] [place] [address] 04/06/2024 Munaa Soumya Plan Of Treatment No Information Progress Notes * DEA LESTER GDOB:1960 (63 yo M)Acc No.[id number]:04/06/2024 Patient: DEA VILLAFUERTE Provider: Marcella DUBOIS MD :1960 A ge:63 Y S ex:Male Date:04/06/2024 Address:[address] [facility] Pcp:Mehnaz Freed MD Subjective: * Chief Complaints: * * Medical History: Objective: * Vitals: Assessment: Plan: * Treatment: * Billing Information: * Visit Code: * Procedure Codes: * Electronic signature of Muna Dubois MD on 06/30/2024 at 11:57 AM CDT Sign off status: Pending * Provider: Marcella DUBOIS MD Date: 0 04/06/2024 Generated for Printi ng/Faxing/eTransmitting on: 0 06/30/2024 11:57 AM CDT
--- OUTSIDE RECORDS SUMMARY | 2024-06-30 11:57 | XMS_ITS | Clinical Summary ---
Author Organization [facility] Address [address] [place] [address] Care Team Providers Care Lighting Director Name Role Phone Mehnaz Freed MD Primary Care Provider Allergies Active Allergy Reactions Criticality Noted Date Comments Shrimp Redness Low 05/12/2021 ---can eat, just turns eyes red, no SOB Wnkezju-Svg-Kga Reductase Inhibitors Joint pain Low 05/12/2021 Medications [...] (04/02/2021): Added automatically from request for surgery [id number] Arthritis of carpometacarpal (CMC) joint of left thumb 07/10/2020 Overview (07/10/2020): Added automatically from request for surgery [id number] Arthritis of carpometacarpal (CMC) joint of righ t thumb 03/20/2020 Overview (03/20/2020): Added automatically from request for surgery [id number] Encounters Date Type Department Care Team Description 06/15/2024 Telephone [facility] ([facility] ENT [address] [facility] 11th [place] [address] [place] [address] Butt, Keri, [place] from Last 3 Months [...] on file 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 Gender Identity Not on file Sexual Orientation Not on file 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 file Not on file Not [...] 03/21/2020, 09/27/2019 Medical Devices Implanted Type Area School Services Officer Device Identifier Shelf Expiration Date Model / Serial / Lot [employer] Simplex P Radiopaque Full Dose Cement Bone Sterile 6191-1-010 - Sna - [id number] Implanted:Qty: 1 on 10/21/2021 by Alirio Buenrostro MD at [facility] Bone Cement [employer] 02/19/2024 6191-1-010 / NA / [id number] Description:Implant times ap proximate [employer] Head Resurfacing Shoulder Inhance 40mm Large [id number] - Sna - [id number] Implanted:Qty: 1 on 10/21/2021 by Alirio Buenrostro MD at [facility] Other - see comments Left: Shoulder [employer] [id number] 05/19/2026 [id number] / NA / [id number] Inhance Shoulder System Anatomic Offset Taper Adapter Implanted:Qty: 1 on 10/21/2021 by Alirio Buenrostro MD at [facility] Other - see comments Left: Shoulder [employer]-Keys [id number] 01/19/2026 0 / NA / [id number] Description:061341219 P42622 200.00 SEE SUPPLY PAGE FOR CHARGE INFO [employer] Head Humeral Shoulder Inhance 17x48.5mm [place] [employer] [id number] - Sna - [id number] Implanted:Qty: 1 on 10/21/2021 by Alirio Buenrostro MD at [facility] Other - see comments Left: Shoulder [employer] [id number] 01/19/2026 [id number] / NA / [id number] [employer] Component Glenoid Anatomic Inhance 29mm Polyethylene Large [id number] - Sna - [id number] Implanted:Qty: 1 on 10/21/2021 by Alirio Buenrostro MD at [facility] Other - see comments Left: Shoulder [employer] [id number] 02/18/2026 [id number] / NA / [id number] [employer] Ar-8978-Cp Internalbrace Kit Hand Wrist Set Implant Ligament Augmentation - [id number] Implanted:Qty: 1 on 04/22/2020 by Ghassan Brady MD at [facility] Right: Wrist [employer] 11/19/2024 AR-8978-CP / / [id number] [employer] Ar-8978-Cp Internalbrace Kit Hand Wrist Set Implant Ligament Augmentation - [id number] Implanted:Qty: 1 on 08/05/2020 by Ghassan Brady MD at [facility] Left: Hand [employer] 05/19/2025 AR-8978-CP / / [id number] [employer] 6191-1-010 Simplex P Radiopaque Full Dose Cement Bone Sterile - [id number] Implanted:Qty: 1 on 05/23/2021 by Alirio Buenrostro MD at [facility] Right: Shoulder [employer] 05/20/2023 6191-1-010 / / [id number] Inhance Shoulder System Anatomic Glenoid 31.5mm X-Large Implanted:Qty: 1 on 05/23/2021 by Alirio Buenrostro MD at [facility] Right: Shoulder [employer] [id number] 11/19/2025 0 / / [id number] Inhance Shoulder System Anatomic Offset Taper Adapter Implanted:Qty: 1 on 05/23/2021 by Alirio Buenrostro MD at [facility] Right: Shoulder [employer] [id number] 11/19/2025 0 / / [id number] Inhance Shoulder System Short Stem [id number] Large Implanted:Qty: 1 on 05/23/2021 by Alirio Buenrostro MD at [facility] Right: Shoulder [employer] 11/19/2025 5199-03-25 0 / / [id number] Inhance Shoulder System Humeral Head 48.5mmx 17mm Implanted:Qty: 1 on 05/23/2021 by Alirio Buenrostro MD at [facility] Right: Shoulder [employer] 10/19/2025 0 / / [id number] Procedures Procedure Name Priority Date/Time Associated Diagnosis Comments EGFR Routine 10/08/2021 12:29 PM CDT Shoulder arthritis Preoperative testing POCT HEMOGLOBIN A1C Routine 10/08/2021 1 2:22 PM CDT from Last 3 Months or Most Recently Relevant to Health Maintenance Results * eGFR (10/08/2021 12:29 PM CDT) eGFR >90 90 - 130 mL/min/1. 73 m2 [facility] Comment: Interpretive Data Reference Interval Normal [...] BLOOD ORDERABLES F inal Result [facility] [place] [address] * POCT hemoglobin A1c (10/08/2021 12:22 PM CDT) Pathologist [facility] Hgb A1C, POC 5.6 4.0 - 5.6 % [facility] Est Average Gluc POC 114 mg/dL [facility] Comment: The ADA recommends reporting an estimated Average Glucose (eAG) with all Hemoglobin A1c results using the equation derived from a study of 507 normal and diabetic adults. Minority populations were underrepresented and children were not included. (Diabetes Care 31:6340-6710, 2008). The eAG is not equivalent to a fasting glucose. Blood 10/08/2021 12:2 2 PM CDT 10/08/2021 12:22 PM CDT us Alirio Buenrostro MD POINT OF CARE TEST ORD ERABLES Final Result [facility] [place] [address] from Last 3 Months or Most Recently Relevant to Health Maintenance Insurance [facility] HMO [employer] PPO [place] [facility] [employer] Advance Directives For more information, please contact: [phone] * Full Code (Latest Code Status on File) Date Activated Date Inactivated Comments 10/21/2021 11:09 AM 10/21/2021 10:54 PM * Full Code Date Activated Date Inactivated Comments 05/23/2021 12:26 PM 05/23/2021 11:19 PM Care Teams Lighting Director Relationship Specialty Start Date End Date Mehnaz Freed MD [address] [place] [address] PCP - General 09/16/16
--- OUTSIDE RECORDS SUMMARY | 2024-06-30 11:57 | XMS_ITS | Encounter Summary ---
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
--- OUTSIDE RECORDS SUMMARY | 2024-06-30 11:57 | XMS_ITS | Data Portability ---
Author Organization [facility] Main Office Address [address] [place] [address] Care Team Providers Care Wireless Watcher Name Role Phone AYLIN SANCHEZ Primary Care Provider Assessment No assessment recorded. Plan of Treatment Reminders Order Date Submit Date Provider Last Modified By Organization Details Last Modified Time Details Appointments None recorded. Lab None recorded. Referral jacquard card lacer referral 2024 ARASH Baez MD, [address] [place] [address], J[place]EN Velazco, [address], 14:55:19 Procedures None recorded. Surgeries None recorded. Imaging audiogram + tympanogra m 2024 [facility] (Audiology), [address] [place] [address] [address], [place], [address], 14:45:24 Medication Orders ciprofloxa tenzin 0.3 %-dexameth asone 0.1 % ear drops,susp ension 2024 [facility], [address], [place], [id number], 14:27:31 Patient TargetsNo targets recorded. Patient Instructions Encounter Date Encounter Id Patient Instructions Last Modified By Organization Details Last Modified Time 06/14/2024 [id number] DISCUSSED COMPLE TE LEFT TYMPANIC MEMBRANE PERFORATION WITH PATIENT AND HIS SPOUSE. CIPRODEX PRESCRIBED FOR MANAGEMENT. REFERRAL PLACED FOR DR. BAEZ TO ASSESS FOR TYMPANOPLASTY NEEDS IF INDICATED. HE WILL HAVE AN AUDIOGRAM AND TYMPANOGRAM COMPLETED. WE WILL FOLLOW UP ON THOSE RESULTS BECOME AVAILABLE. [email or web address] Not available 06/14/2024 14:28:35 Reason for Referral Drainlayer Referral for Perfo ration of left tympanic membrane Referring Physician: Carolina Santiago, Otolaryngology, Encounter Date: 06/14/2024 Results Created Date Observation Date Name Description Value Unit Range Abnormal Flag Note LastModifiedBy Organization Detail LastModifiedTime 06/23/19 25 06/21/2024 CT, neck, soft tissu e, w/ contr ast No observ ation record ed. [facility] Not Available 2024 08:50:08 07/01/1906/30/2024 CT, neck, soft tissu e, w/ contr ast No observ ation record ed. [facility] Not Available 2024 12:07:18 Result Notes None recorded. Problems Name Problem SNOMED Code Status Onset Date Resolution Date Notes Provider Name and Address Organization Details Recorded Time Osteoarthr itis of knee 498681979 Active Not Available [facility] 3 13:13:47 Disorder of prosthetic joint 120429245 Active Not Available [facility] 3 13:13:47 Knee pain Active Not Available [facility] 3 13:13:47 Vitamin D deficiency 60705236 Active Not Available [facility] 3 13:13:47 Chronic cough 76249294 Active 2023 Jorge Chen MD [address] [address], [place], [address] , [employer] [facility] 4 12:28:50 Deviated nasal septum 992559615 Active 2023 Jorge Chen MD [address] [address], [place], [address] , [employer] [facility] 4 12:28:56 Perforatio n of left tympanic membrane 5914871743041 103 Active 2024 Carolina Loera RN null, [employer] [facility] 5 14:21:29 Chronic sinusitis 13689136 Active 2024 Carolina Loera RN null, [employer] [facility] 5 12:09:06 Chronic sinusitis 90502434 Active 2024 Jorge Chen MD [address] [facility], [facility] [address], [place], [address] , [facility] [employer] 12:11:31 Problem Notes None recorded. Procedures Surgical History None recorded. Imaging Results Imaging Date Name Status LastModified by Organiz ation Details LastModified Time 06/21/2024 CT, neck, soft tissue, w/ contrast completed [facility] Information not available 06/22/2024 08:50:08 06/30/2024 CT, neck, soft tissue, w/ contrast completed [facility] Information not available 06/30/2024 12:07:18 Procedure Notes None recorded. Medical Equipment None Reported. Allergies Allergen ID Allergen Name Allergen Category Reaction Reaction Severity Criticality Documentation Date Start Date Code Code System Note Provider Name and Address Organization Details Recorded Time 43088 metformin medicatio n diarrhea Not available Not available 11/24/2023 6809 RxNoSUE Nur, [employer] 15:31:15 75698 rosuvasta tin medicatio n myalgias (muscle pain) Not available Not available 11/24/2023 80022 2 SUE Goldman, [employer] 15:31:25 Medications Name Sig Start Date Stop [...] propionate 50 mcg/actuat ion nasal spray,susp ension [place] 1 spray every day by intranas al [...] Updated DateTime 11/25/2023 182.88 cm 38.5 kg/m2 726170.95 g 97.9 [degF] GRACIELA Mccrary [facility] [employer] [facility] 11/25/2023 12:02:57 Date Recorded Body height Body mass index (BMI) Body weight Body temperature Provider Name and Address Organization Details Last Updated DateTime 06/14/2024 182.88 cm 37.4 kg/m2 729564.49 g 97.7 [degF] Carolina Loera RN [facility] [employer] [facility] 06/14/2024 14:10:38 Date Recorded Body height Body mass index (BMI) Body weight Body temperature Provider Name and Address Organization Details Last Updated DateTime 06/21/2024 182.88 cm 37.6 kg/m2 942266.24 g 98 [degF] Carolina Loera RN [facility] [employer] [facility] 06/21/2024 11:58:06 Social History Question Answer Notes LastModified by Organizat ion Details LastModified Time Tobacco Smoking Status Never Smoker Carolina Loera RN null, [facility] [employer] 11/25/2023 09:00:54 What Is Your Level Of [...] Condition Response DIABETES, TYPE Y ENT Y DEPRESSION (INCLUDING POST ) Y BACK / NECK PROBLEMS Y SLEEP DISORDER Y HYPERTENSION Y HIGH CHOLESTEROL / HYPERLIPIDEMIA Y Past Encounters Encounter ID Performer Location Encounter Start Date Encounter Closed Date Diagnosis/Indication Diagnosis SNOMED-CT Code Diagnosis ICD10 Code Diagnosis Note [id number] Jorge Chen MD [facility] [place] [address] [place] [address] 11/25/2023 11:47:57 11/25/2023 13:53:20 Chronic cough 20720034 R05.3 Deviated nasal septum 12 8984450 J34.2 [id number] AYO Kennedy [facility] [place] [address] [place] [address] 06/14/2024 13:56:19 06/14/2024 14:29:10 Perforation of left tympanic membrane 1725344151 392869 H72.92 [id number] Jorge Chen MD [facility] [place] [address] [place] [address] 06/21/2024 11:53:28 06/23/2024 16:22:35 Chronic cough 65769698 R05.3 Chronic sinusitis 142330 00 J32.9 Health Concerns Section Related Observation LastModified by Organization Detai ls LastModified Time None Recorded Concern Status LastModified by Organization Details LastModified Time None Recorded Advance Directives Directive None Recorded Payers Encounter Date Sequence Insurance Name Policy Number Policy Askew Covered Member ID Askew Member ID Guarantor Name 11/25/2023 1 [facility] - [facility] - DOS PRIOR TO 2024 (PPO) Prieto Ivan [id number] [facility] Prieto Ivan 06/14/2024 1 [employer] - CHOICE (POS II) [id number] Prieto Ivan [id number] Prieto Ivan 06/21/2024 1 [employer] - CHOICE (POS II) [id number] Prieto Ivan [id number] Prieto Gilltcher Notes Date Note Type Note Provider Name [...] on nasal CPAP Jorge Chen MD [address], [address], [place], [address], [employer] 11/25/2023 12:29:42 06/14/2024 text/html this patient has [...] for further management. AYO Kennedy [address], [place], [address], [employer] 06/14/2024 14:28:39 06/21/2024 text/html this patient reports a chronic cough for 2 years. He discontinued his lisinopril but the cough persisted. He recently had a neck CT which was normal. He has not seen a musical engineer but does have a pulmonary function study scheduled Jorge Chen MD [address] [address], [place], [address], [employer] 06/21/2024 12:12:06
--- OUTSIDE RECORDS SUMMARY | 2024-06-30 11:57 | XMS_ITS | Clinical Summary ---
Author Organization [facility] Address [address] [place] [address] Care Team Providers Care Railroad Brakeman Name Role Phone None, Provider MD Primary [...] Comments Blood Pressure 152/82 02/20/2023 9:05 PM MERINGUER Pulse 92 02/20/2023 9:05 PM MERINGUER Temperature 36.7 C (98 F) 02/20/2023 7:47 PM MERINGUER Respiratory Rate 18 02/20/2023 9:05 PM [facility] Oxygen Saturation 97% 02/20/2023 9:05 PM MERINGUER Inhaled Oxygen Concentration - - Weight 129.3 kg (285 lb) 02/20/2023 7:48 PM MERINGUER Height 182.9 cm (6') 02/20/2023 7:48 PM MERINGUER Body Mass Index 38.65 02/20/2023 7:48 PM MERINGUER Plan of Treatment Health Maintenance Due Date Last Done Comments Colorectal Cancer Screening Colonoscopy (10 Years) 1960 Annual Physical [birth year]29/1963 Hepatitis C 1978 COVID-19 Vaccine (3 - 2023-2 5 season) 2023 07/24/2020, 06/25/2020 DTaP, Tdap and Td Vaccines ( 2 - Td or Tdap) 07/17/2031 07/16/2021 RSV Immunization or 60+ Years (1 - 1-dose 75+ series) 11/29/2035 Pneumococcal Vaccine: Pediatrics (0 to 5 Years) and At-Risk Patients (6 to 64 Years) Aged Out 09/19/2014 No longer eligible b ased on patient's age to complete this topic Zoster Vaccines Completed 03/21/2020, 09/27/2019 Meningococcal B Vaccine Aged Out No l onger eligible based on patient's age to complete this topic Meningococcal Vaccine Aged Out No ruth adonis eligible based on patient's age to complete this topic RSV Immunizations Under 20 Months Aged Out No longer eligible b ased on patient's age to complete this topic Insurance [employer] Care Teams Railroad Brakeman Relationship Specialty Start Date End Date None, Provider, PCP - General UNKNOWN PHYSICIAN SPECIALTY 02/20/23
--- OUTSIDE RECORDS SUMMARY | 2024-06-30 11:57 | XMS_ITS | Patient Health Record ---
Author Organization [facility] [employer] Address [address] [place] [address] Care Team Providers Care Cold Type Composing Machine Operator Name Role Phone Abdiaziz ZAMBRANO, Mehnaz Primary Care Provider Cele Chinchilla Unavailable [phone] Migration, Provider Unavailable Unavailable Allergies No Known Allergies Reason For Referral No Information Medications Medication SIG (Take, Route, Frequency, Duration) Notes Start Date End Date Status Triamterene-HCTZ 37.5-25 MG Oral for 30 Days Active amLODIPine Besylate 10 MG Oral 08/03/2023 Active Glimepiride 2 MG Oral 08/03/2023 Ac tive PRALUENT PEN 75 mg/mL Subcutaneous *Reorder from [employer] for eRx and Interaction Alerts* 08/03/2023 Not-Taking [...] 01/06/2024 Encounters Encounter Location Date Provider Diagnosis [facility] [employer] [address] [place] [address] 08/03/2023 Cele Dooley Other specified anxiety disorders F41.8 and Primary insomnia F51.01 [facility] [employer] [facility] [address] [place] [address] 01/06/2024 Thena Soumya Primary insomnia F51.01 and Other specified anxiety disorders F41.8 [address] [id number] [facility] [address] [facility] [address] [place] [address] 04/21/2024 Thena Soumya [address] [address] [facility] [address] [address] 08/07/2023 Provider Migration [address] [address] 08/08/2023 Provider Migration Assessments Encounter Date Diagnosis [...] Insured Coverage Start Date Coverage End Date [facility] [address] [address] [place] [address] [id number] Nu [id number] GAUDENCIO LESTER Spouse - patient is the spouse of the insured Medical (General) History Medical History History ICD Code Problems: Mixed anxiety and depressive d isorder Opioid withdrawal Primary insomnia , Surgical History Surgery Date(Month/Year) Other
--- OUTSIDE RECORDS SUMMARY | 2024-06-30 11:57 | XMS_ITS | CONTINUITY OF CARE DOCUMENT ---
Author Name bella blanco Address Unknown Organization [facility] Address [address] [place] [address] [address] [place] [address] Phone [phone] Care Team Providers Care Safety Aide Name Role Phone bella blanco Unavailable Unavailable INSURANCE PROVIDERS Payer name Policy type / Coverage type [place] red democrat ID [facility] [id number]
--- OUTSIDE RECORDS SUMMARY | 2024-06-30 11:57 | XMS_ITS | Continuity of Care Document ---
Author Organization [facility] Address [address] [place] [address] [address] [place] [address] Phone Care Team Providers Care Mechanical Technical Service Specialist Name Role Phone Krista Garsia Unavailable Unavailable Procedures Procedure Date Remove Foreign Body From Eye Advance Directives Directive Yes / No Effective Date File Name No Information Encounters Encounter Description Practice Location Reason(s) For Visit Diagnoses Date Provider Providers Copied on Encounter [facility], [address], [place], [place], [id number], [place] tel:[phone] SEC [facility] [place] No Information 8-[address] Vel[address]. [address] [facility] , [address], [place], [address], [place]. tel:[phone] Family History Family Member Type Diagnosis Age At Onset No Information Payers Payer name Insurance type Covered constitution party ID Authoriza tion(s) Edy Camilo [id number] Social History Type Description Quantity Date Captured [...]
--- OUTSIDE RECORDS SUMMARY | 2024-06-30 11:57 | XMS_ITS | Referral Summary ---
Author Organization [facility] Address [address] [place] [address] Care Team Providers Care Aerophysics Engineer Name Role Phone Mehnaz Freed MD Primary Care Provider Encounters Date Type Department Care Team Description 06/15/2024 Telephone [facility] ([facility]) - [facility] ENT [address] 11th [place] [address] [place] [address] Keri Butt MS from Last 3 Months Allergies Active Allergy Reactions Criticality Noted Date Comments Shrimp Redness Low 05/12/2021 ---can eat, just turns eyes red, no SOB Cfhghth-Pru-Mov Reductase Inhibitors Joint pain Low 05/12/2021 Medications [...] (04/02/2021): Added automatically from request for surgery [id number] Arthritis of carpometacarpal (CMC) joint of left thumb 07/10/2020 Overview (07/10/2020): Added automatically from request for surgery [id number] Arthritis of carpometacarpal (CMC) joint of righ t thumb 03/20/2020 Overview (03/20/2020): Added automatically from request for surgery [id number] Immunizations Immunization Administration Dates Next Due Influenza, [...] on file Legal Sex 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 Gender Identity Not on file Sexual Orientation Not on file 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 Not on file Not [...] on file Medical Devices Implanted Type Area Juvenile Counselor Device Identifier Shelf Expiration Date Model / Serial / Lot [employer] Simplex P Radiopaque Full Dose Cement Bone Sterile 6191-1-010 - Sna - [id number] Implanted:Qty: 1 on 10/21/2021 by Alirio Buenrostro MD at [facility] Bone Cement [employer] 02/19/2024 6191-1-010 / NA / [id number] Description:Implant times ap proximate [employer] Head Resurfacing Shoulder Inhance 40mm Large [id number] - Sna - [id number] Implanted:Qty: 1 on 10/21/2021 by Alirio Buenrostro MD at [facility] Other - see comments Left: Shoulder [employer] [id number] 05/19/2026 [id number] / NA / [id number] Inhance Shoulder System Anatomic Offset Taper Adapter Implanted:Qty: 1 on 10/21/2021 by Alirio Buenrostro MD at [facility] Other - see comments Left: Shoulder DEPMinutta [id number] 01/19/2026 / NA / [id number] Description:[id number] 200.00 SEE SUPPLY PAGE FOR CHARGE INFO [employer] Head Humeral Shoulder Inhance 17x48.5mm [place] [employer]ium [id number] - Sna - [id number] Implanted:Qty: 1 on 10/21/2021 by Alirio Buenrostro MD at [facility] Other - see comments Left: Shoulder [employer] [id number] 01/19/2026 [id number] / NA / [id number] [employer] Component Glenoid Anatomic Inhance 29mm Polyethylene Large [id number] - Sna - [id number] Implanted:Qty: 1 on 10/21/2021 by Alirio Buenrostro MD at [facility] Other - see comments Left: Shoulder [employer] [id number] 02/18/2026 [id number] / NA / [id number] [employer] Ar-8978-Cp Internalbrace Kit Hand Wrist Set Implant Ligament Augmentation - [id number] Implanted:Qty: 1 on 04/22/2020 by Ghassan Brady MD at [facility] Right: Wrist [employer] 11/19/2024 AR-8978-CP / / [id number] [employer] Ar-8978-Cp Internalbrace Kit Hand Wrist Set Implant Ligament Augmentation - [id number] Implanted:Qty: 1 on 08/05/2020 by Ghassan Brady MD at [facility] Left: Hand [employer] 05/19/2025 AR-8978-CP / / [id number] [employer] 6191-1-010 Simplex P Radiopaque Full Dose Cement Bone Sterile - [id number] Implanted:Qty: 1 on 05/23/2021 by Alirio Buenrostro MD at [facility] Right: Shoulder [employer] 05/20/2023 6191-1-010 / / [id number] Inhance Shoulder System Anatomic Glenoid 31.5mm X-Large Implanted:Qty: 1 on 05/23/2021 by Alirio Buenrostro MD at [facility] Right: Shoulder [employer] [id number] 11/19/2025 0 / / [id number] Inhance Shoulder System Anatomic Offset Taper Adapter Implanted:Qty: 1 on 05/23/2021 by Alirio Buenrostro MD at [facility] Right: Shoulder [employer] [id number] 11/19/2025 0 / / [id number] Inhance Shoulder System Short Stem [id number] Large Implanted:Qty: 1 on 05/23/2021 by Alirio Buenrostro MD at [facility] Right: Shoulder [employer] 11/19/2025 5199-03-25 0 / / [id number] Inhance Shoulder System Humeral Head 48.5mmx 17mm Implanted:Qty: 1 on 05/23/2021 by Alirio Buenrostro MD at [facility] Right: Shoulder [employer] 10/19/2025 0 / / [id number] Procedures Procedure Name Priority Date/Time Associated Diagnosis [...] MD LAB BLOOD ORDERABLES F inal Result [facility] Department [place] [address] * POCT hemoglobin A1c (10/08/2021 12:22 PM CDT) Hgb A1C, POC 5.6 4.0 - 5.6 % [facility] Est Average Gluc POC 114 mg/dL [facility] Comment: The ADA recommends reporting an estimated Average Glucose (eAG) with all Hemoglobin A1c results using the equation derived from a study of 507 normal and diabetic adults. Minority populations were underrepresented and children were not included. (Diabetes Care 31:1065-5634, 2008). The eAG is not equivalent to a fasting glucose. Blood 10/08/2021 12:2 2 PM CDT 10/08/2021 12:22 PM CDT Alirio Buenrostro MD POINT OF CARE TEST ORD ERABLES Final Result [facility] Department [place] [address] from Last 3 Months or Most Recently Relevant to Health Maintenance Insurance [facility] HMO [employer] PPO [place] [employer] Advance Directives For more information, please contact: [phone] * Full Code (Latest Code Status on File) Date Activated Date Inactivated Comments 10/21/2021 11:09 AM 10/21/2021 10:54 PM * Full Code Date Activated Date Inactivated Comments 05/23/2021 12:26 PM 05/23/2021 11:19 PM Care Teams Aerophysics Engineer Relationship Specialty Start Date End Date Mehnaz Freed MD [address] [place] [address] PCP - General 09/16/16
--- OUTSIDE RECORDS SUMMARY | 2024-06-30 11:57 | XMS_ITS | Clinical Summary ---
Author Organization [facility] Address [address] [place] [address] Care Team Providers Care Fiscal Specialist Name Role Phone Garfield Parisi MD Unavailable [phone] Mehnaz Freed MD Primary Care Provider [phone] Source Comments [facility],non-owned Affiliates and Associated Physician Practices is amultiple site organization consisting of ambulatory clinics and hospital sitesin [place], [place], [place] and [place]. This disclosure is being madepursuant to the Care Everywhere program and may not contain all information available regarding this patient. Last updated 17.[facility] Allergies No known active allergies Medications * [...] 124.7 kg (275 lb) 04/10/2013 3:13 PM DOG DAY CARE ATTENDANT Height 182.9 cm (6') 04/10/2013 3:13 PM DOG DAY CARE ATTENDANT Body Mass Index 37.3 04/10/2013 3:13 PM DOG DAY CARE ATTENDANT Plan of Treatment Health Maintenance Due Date [...] VACCINE ( - 2023-2 5 season) 2023 DEPRESSION SCREENING 03/22/2024 INFLUENZA VACCINE (Season Ended) 2024 Respiratory Syncytial Virus (RSV) Vaccine Pt: or [...] age to complete this topic Care Teams Fiscal Specialist Relationship Specialty [place] [address] [place] [address] PCP - General Internal Medicine 04/10/13 [place] [address] [place] [address] Orthopedic Surgery 04/10/13
[2024-06-30 12:09] LABS: Basophils Absolute Auto 0.06 K/mm3 (0.00-0.10); Basophils Percent Auto 0.7 % (0.0-1.0); Eosinophils Absolute Auto 0.12 K/mm3 (0.02-0.50); Eosinophils Percent Auto 1.4 % (1.0-6.0); Hematocrit 46.4 % (40.0-54.0); Hemoglobin 15.5 g/dL (14.0-18.0); Immature Granulocyte Absolute 0.02 K/mm3 (0.00-0.00); Immature Granulocyte Percent A 0.2 % (0.0-0.0); Lymphocytes Percent Auto 31.5 % (18.0-42.0); Mean Corpuscular HGB Conc 33.4 g/dL (32-36); Mean Corpuscular Hemoglobin 31.1 pg (27.0-31.0); Mean Platelet Volume 10.6 fl (8.7-11.0); Monocytes Absolute Auto 0.85 K/mm3 (0.10-0.90); Monocytes Percent Auto 9.9 % (2.0-11.0); Neutrophils Absolute Auto 4.83 K/mm3 (1.70-7.20); Neutrophils Percent Auto 56.3 % (50.0-70.0); Platelet Count Result 280 K/mm3 (150-420); Red Blood Count 4.99 M/mm3 (4.70-6.10); Red Cell Distribution Width 12.6 % (11.6-14.4); White Blood Count 8.6 K/mm3 (4.8-10.8)
[2024-06-30 12:10] LABS: Add Urine Microscopic? NO; Appearance Urine Clear (Clear); Bilirubin Urine Negative (Negative); Blood Urine Negative (Negative); Color Urine Light Yellow (Yellow); Glucose Urine UA Negative (Negative); Ketones Urine Negative (Negative); Leukocyte Esterase Ur Negative LEU/UL (Negative); Nitrate Urine Negative (Negative); Protein Urine Negative (Negative); Urobilinogen Urine 0.2 mg/dL (0.2-1.0); pH Urine 5.5 (5.0-8.0)
[2024-06-30 12:27] LABS: Hemoglobin A1C 6.3 % (<5.7)
[2024-06-30 13:22] LABS: Alanine Aminotransferase 39 U/L (16-63); Albumin Level 3.9 g/dL (3.4-5.0); Alkaline Phosphatase 99 U/L (46-116); Anion Gap 9 mmol/L (4-12); Aspartate Amino Transferase 31 U/L (15-37); Bilirubin,Total 0.6 mg/dL (0.00-1.00); Blood Urea Nitrogen 12 mg/dL (7-18); Carbon Dioxide 28 mmol/L (21-32); Chloride 103 mmol/L (98-108); Creatine Kinase 236 U/L (39-308); Estimated Glomerular Filt Rate > 60; Glucose 109 mg/dL (70-99); Osmolality Calculated 290 mOsm/kg (285-295); Potassium 4.8 mmol/L (3.5-5.1); Sodium 140 mmol/L (136-145); Total Protein 7.7 g/dL (6.4-8.2)
[2024-06-30 15:43] LABS: Creatinine Urine 125.25 mg/dL (40-278); MALB Creatinine Ratio 51.3 mg/g (0-30); Microalbumin Urine Random 64.3 mg/L
[2024-06-30 15:44] LABS: Cholesterol 241 mg/dL (0-200); HDL Direct 48 mg/dL (40-60); LDL Cholesterol Calculated 158 mg/dL (<130); Triglycerides 175 mg/dL (0-150)
== END 2024-06-30 11:40 | disposition home or self-care (01) ==
LOC: CHSLAB 11:43
PROVIDERS: PCP Internal Medicine; Visit Provider Internal Medicine
DX: Z12.5 Encounter for screening for malignant neoplasm of prostate (principal); N39.0 Urinary tract infection, site not specified; I10 Essential (primary) hypertension; E78.2 Mixed hyperlipidemia; E11.65 Type 2 diabetes mellitus with hyperglycemia; R53.82 Chronic fatigue, unspecified
CPT/HCPCS: 36415; 80053; 80061; 81003; 82043; 82550; 83036; 84153; 85025; G0103

== ENCOUNTER 2025-01-23 10:41 | Outpatient (CLI) | payer MEDICARE, SELFPAY ==
--- NOTE | ~2025-01-23 | XR_ITS ---
PROCEDURE(S): Radiography right ankle, minimum 3 views INDICATION(S): Pain COMPARISON(S): None. TECHNIQUE: 4 radiographic images were submitted for interpretation. FINDINGS: Bones: There are no fractures seen. There are no destructive lesions or other lesions identified. Joints: There are no dislocations identified. There is no evidence of erosive arthropathy. Nehylgqr-mx-xhhgwl plantar calcaneal spurring. Degenerative change of the midfoot IMPRESSION: No acute abnormalities are seen. Reviewed, dictated and finalized at location A. [facility]ER
[2025-01-23 11:04] LABS: Hematocrit 44.8 % (40.0-54.0); Hemoglobin 15.0 g/dL (14.0-18.0); Mean Corpuscular HGB Conc 33.5 g/dL (32-36); Mean Corpuscular Hemoglobin 31.8 pg (27.0-31.0); Mean Corpuscular Volume 94.9 fL (78.0-102.0); Platelet Count Result 249 K/mm3 (150-420); Red Blood Count 4.72 M/mm3 (4.70-6.10); White Blood Count 6.8 K/mm3 (4.8-10.8)
[2025-01-23 11:46] LABS: CRP < 0.5 mg/dL (<1.0); Uric Acid 4.8 mg/dL (3.5-8.5)
== END 2025-01-23 10:42 | disposition home or self-care (01) ==
PROVIDERS: PCP Internal Medicine; Visit Provider Internal Medicine
DX: Z13.89 Encounter for screening for other disorder (principal); M25.571 Pain in right ankle and joints of right foot
CPT/HCPCS: 36415; 73610; 84550; 85027; 85652; 86140

== ENCOUNTER 2025-01-29 08:45 | Outpatient (CLI) | payer MEDICARE, SELFPAY ==
--- OUTSIDE RECORDS SUMMARY | 2024-04-06 05:00 | XMS_ITS ---
Author Organization [facility] [employer] [facility] Address [facility] [place] [address] Care Team Providers Care Summer Clerk Name Role Phone Abdiaziz ZAMBRANO, Mehnaz Primary Care Provider Unavaila vicki Soumya, Thena Unavailable [phone] Social History Sex Assigned At : Social History Observation Description Sex Assigned At Male Encounters Encounter Location Date Provider Diagnosis [facility] [employer] [place] [address] [place] [address] 04/06/2024 Thena Soumya Plan Of Treatment No Information Progress Notes * DEA LESTER GDOB:1960 (64 yo M)Acc No.[id number]:04/06/2024 Patient: DEA VILLAFUERTE Provider: Marcella DUBOIS MD :1960 A ge:63 Y S ex:Male Date:04/06/2024 Address:[address] [place], [place] [id number] Pcp:Mehnaz Freed MD Billing Information: * Procedure Codes: * Electronic signature of Muna Dubois MD on 01/29/2025 at 09:04 AM FOOD AND BEVERAGE ORDER CLERK Sign off status: Pending * Provider: Marcella DUBOIS MD Date: 0 04/06/2024 Generated for Printi ng/Faxing/eTransmitting on: 03/31/2024 09:04 AM FOOD AND BEVERAGE ORDER CLERK
--- NOTE | 2025-01-29 | S_PTH ---
PATIENT: Prieto Ivan LOC: [facility]#:[id number] AGE/SX: 64/M ROOM: RE01/29/[address]: Mehnaz Freed MD : 1960 BED: DIS: 01/29/2025 SPEC #: [id number] RECD: 01/29/25 09:21 STATUS: ROBI REQ #: [id number] DAVEY: 01/29/25 00:[address]: Mehnaz Freed DEPT: [facility] Surgical RECD BY: Liz Treviño MLT, ([facility]) Tissues: A - Skin Bx Procedures: Hematoxylin and Eosin Stain Gross and Microscopic Level 4
--- OUTSIDE RECORDS SUMMARY | 2025-01-29 09:04 | XMS_ITS | Clinical Summary ---
Author Organization [facility] [place] [address] Care Team Providers Care Radar Engineering Teacher Name Role Phone Mehnaz Freed MD Primary Care Provider [phone] Allergies Active Allergy Reactions Criticality Noted Date Comments Metformin Diarrhea Low 07/25/2024 Rosuvastatin Muscle pain Medium 07/25/2024 Shrimp Redness Low 05/12/2021 ---can eat, just turns eyes red, no SOB Rhokbqi-Gke-Zzz Reductase Inhibitors Joint pain Low 05/12/2021 Medications [...] needed for pain 40 tablet 2 Active albuterol (PROAIR DIGIHALER) 90 mcg/actuation inhaler Inhale 2 puffs every 4 hours by inhalation route. Active albuterol HFA (PROVENTIL HFA,VENTOLIN HFA,PROAIR HFA) 90 mcg/actuation inhaler Active alirocumab (Praluent Pen) 75 mg/mL pen injector Active azelastine (ASTELIN) 137 mcg (0.1 %) nasal spray 5 Active benzonatate (TESSALON) 200 mg capsule Active ciprofloxacin-d exAMETHasone (CIPRODEX) otic suspension 5 Active doxycycline 100 mg tablet Active fluticasone propionate (FLONASE) 50 mcg/actuation nasal spray 5 Active Repatha SureClick 140 mg/mL pen injector 5 Active gabapentin (NEURONTIN) 300 mg capsule Take 1 capsule 3 times a day by oral route. Active ketorolac (TORADOL) 10 mg tablet Active levocetirizine (XYZAL) 5 mg tablet 5 Active losartan-hydroc hlorothiazide (HYZAAR) 100-25 mg per tablet Active losartan/hydroc hlorothiazide (HYZAAR ORAL) 100-25 MG ORAL TABLET, TAKE ONE TABLET BY MOUTH DAILY Active methocarbamoL (ROBAXIN) 500 mg tablet Active sildenafiL (VIAGRA) 100 mg tablet Take 1 tablet every day by oral route. Active triamterene-hyd roCHLOROthiazid e 37.5-25 mg per tablet 5 Active amLODIPine (NORVASC) 10 mg tablet 5 Active Active Problems Problem Noted Date Diagnosed Date Disorder of joint prosthesis 07/25/2024 Osteoarthritis of knee 07/25/2024 Vitamin D deficiency 07/25/2024 Chronic cough 11/25/2023 Deviated nasal septum 11/25/2023 Arthritis of left shoulder region 10/21/2021 HTN (hypertension) 05/21/2021 HLD (hyperlipidemia) 05/21/2021 BASILIO on CPAP 05/21/2021 Type 2 diabetes mellitus 05/21/2021 Class 2 obesity in adult 05/21/2021 Shoulder arthritis 04/02/2021 Overview (04/02/2021): Added automatically from request for surgery [id number] Arthritis of carpometacarpal (CMC) joint of left thumb 07/10/2020 Overview (07/10/2020): Added automatically from request for surgery [id number] Arthritis of carpometacarpal (CMC) joint of righ t thumb 03/20/2020 Overview (03/20/2020): Added automatically from request for surgery [id number] Immunizations Immunization Administration Dates Next Due Influenza, Quadrivalent, Spl it, Intramuscular 02/03/2017,12/02/2015,03/12/2015 Influenza, Quadrivalent, Spl it, Pediatric, Preservative Free, Intramuscular 12/08/2017 Influenza, Quadrivalent, Spl it, Preservative Free, Intramuscular 01/31/2019 Pneumococcal Conjugate PCV 13 09/19/2014 ZOSTER Recombinant 09/27/2019 Surgical History Surgery Date Site/Laterality Comments UMBILICAL HERNIA REPAIR 03/22/2013 - 03/21/2014 COLONOSCOPY ? 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 file Not on file Not [...] Pneumococcal vaccine <65 (2 of 2 - PPSV23, PCV20, or PCV21) 11/14/2014 09/19/2014 Hemoglobin A1C 04/10/2022 10/08/2021, 05/12/2021 eGFR 10/08/2022 10/08/2021, 05/12/2021 Covid-19 Vaccine (4 - 2024-2 6 season) 2024 02/10/2021, 07/24/2020, 06/25/2020 Influenza Vaccine (#1) 2024 , 01/31/2019, 12/08/2017, Additional history exists Zoster Vaccine Completed 03/21/2020, 09/27/2019 Medical Devices Implanted Type Area Waiter/Waitress Room Service Device Identifier Shelf Expiration Date Model / Serial / Lot [employer] Simplex P Radiopaque Full Dose Cement Bone Sterile 6191-1-010 - Sna - [id number] Implanted:Qty: 1 on 10/21/2021 by Alirio Buenrostro MD at [facility] Bone Cement [employer] 02/19/2024 6191-1-010 / NA / [id number] Description:Implant times ap proximate [employer] Head Resurfacing Shoulder Inhance 40mm Large [id number] - Sna - [id number] Implanted:Qty: 1 on 10/21/2021 by Alirio Buenrostro MD at [facility] Other - see comments Left: Shoulder [employer] [id number] 05/19/2026 [id number] / NA / [id number] Inhance Shoulder System Anatomic Offset Taper Adapter Implanted:Qty: 1 on 10/21/2021 by Alirio Buenrostro MD at [facility] Other - see comments Left: Shoulder [employer]PU[employer] [id number] 01/19/2026 0 / NA / [id number] Description:[id number] 200.00 SEE SUPPLY PAGE FOR CHARGE INFO [employer] Head Humeral Shoulder Inhance 17x48.5mm Mary D [employer] [id number] - Sna - [id number] Implanted:Qty: 1 on 10/21/2021 by Alirio Buenrostro MD at [facility] Other - see comments Left: Shoulder [employer] [id number] 01/19/2026 [id number] / NA / [id number] [employer] Component Glenoid Anatomic Inhance 29mm Polyethylene Large [id number] - Sna - [id number] Implanted:Qty: 1 on 10/21/2021 by Alirio Buenrostro MD at [facility] Other - see comments Left: Shoulder [employer] [id number] 02/18/2026 [id number] / NA / [id number] [employer] Ar-8978-Cp Internalbrace Kit Hand Wrist Set Implant Ligament Augmentation - [id number] Implanted:Qty: 1 on 04/22/2020 by Ghassan Brady MD at [facility] [place] Right: Wrist [employer] 11/19/2024 AR-8978-CP / / [id number] [employer] Ar-8978-Cp Internalbrace Kit Hand Wrist Set Implant Ligament Augmentation - [id number] Implanted:Qty: 1 on 08/05/2020 by Ghassan Brady MD at [facility] [place] Left: Hand [employer] 05/19/2025 AR-8978-CP / / [id number] [employer] 6191-1-010 Simplex P Radiopaque Full Dose Cement Bone Sterile - [id number] Implanted:Qty: 1 on 05/23/2021 by Alirio Buenrostro MD at [facility] Right: Shoulder [employer] 05/20/2023 6191-1-010 / / [id number] Inhance Shoulder System Anatomic Glenoid 31.5mm X-Large Implanted:Qty: 1 on 05/23/2021 by Alirio Buenrostro MD at [facility] Right: Shoulder [employer] [id number] 11/19/2025 0 / / [id number] Inhance Shoulder System Anatomic Offset Taper Adapter Implanted:Qty: 1 on 05/23/2021 by Alirio Buenrostro MD at [facility] Right: Shoulder [employer] [id number] 11/19/2025 0 / / [id number] Inhance Shoulder System Short Stem [id number] Large Implanted:Qty: 1 on 05/23/2021 by Alirio Buenrostro MD at [facility] Right: Shoulder [employer] 11/19/2025 5199-03-25 0 / / [id number] Inhance Shoulder System Humeral Head 48.5mmx 17mm Implanted:Qty: 1 on 05/23/2021 by Alirio Buenrostro MD at [facility] Right: Shoulder [employer] 10/19/2025 0 / / [id number] Procedures Procedure Name Priority Date/Time Associated Diagnosis Comments EGFR Routine 10/08/2021 12:29 PM CDT Shoulder arthritis Preoperative testing POCT HEMOGLOBIN A1C Routine 10/08/2021 1 2:22 PM CDT from Last 3 Months or Most Recently Relevant to Health Maintenance Results * eGFR (10/08/2021 12:29 PM CDT) eGFR >90 90 - 130 mL/min/1. 73 m2 [facility] Comment: Interpretive Data Reference Interval Normal [...] ORDERABLES F inal Result Performing Organization Address [facility] de Phone Number [facility] [place] [address] * POCT hemoglobin A1c (10/08/2021 12:22 PM CDT) [facility] Hgb A1C, POC 5.6 4.0 - 5.6 % [facility] Est Average Gluc POC 114 mg/dL [facility] Comment: The ADA recommends reporting an estimated Average Glucose (eAG) with all Hemoglobin A1c results using the equation derived from a study of 507 normal and diabetic adults. Minority populations were underrepresented and children were not included. (Diabetes Care 31:0207-6949, 2008). The eAG is not equivalent to a fasting glucose. Blood 10/08/2021 12:2 2 PM CDT 10/08/2021 12:22 PM CDT Alirio Buenrostro MD POINT OF CARE TEST ORD ERABLES Final Result Performing Organization Address [facility] Co de Phone Number [facility] [place] [address] from Last 3 Months or Most Recently Relevant to Health Maintenance Insurance [facility] HMO [facility] HMO/PPO Address: [facility] [address] [place] [address] [facility] PPO [place] [employer] Advance Directives For more information, please contact: [phone] * Full Code (Latest Code Status on File) Date Activated Date Inactivated Comments 10/21/2021 11:09 AM 10/21/2021 10:54 PM * Full Code Date Activated Date Inactivated Comments 05/23/2021 12:26 PM 05/23/2021 11:19 PM Care Teams Radar Engineering Teacher Relationship Specialty Start Date End Date Mehnaz Freed MD [address] [place] [address] PCP - General 09/16/16
--- OUTSIDE RECORDS SUMMARY | 2025-01-29 09:05 | XMS_ITS | Patient Health Record ---
Author Organization [facility] [employer] Address [address] [place] [address] Care Team Providers Care Intern Brand Name Role Phone Abdiaziz ZAMBRANO, [facility] Primary Care Provider Cele Chinchilla Unavailable [phone] Allergies No Known Allergies Reason For Referral No Information Medications Medication SIG (Take, Route, Frequency, Duration) Notes Start Date End Date Status Triamterene-HCTZ 37.5-25 MG Tablet Oral; Duration: 30 Days Active amLODIPine Besylate 10 MG Tablet Oral 08/03/2023 Active Glimepiride 2 MG Tablet Oral 08/03/2023 Active PRALUENT PEN 75 mg/mL Solution Pen-injector Subcutaneous *Reorder from HelloTel for eRx and Interaction Alerts* 08/03/2023 Not-Taking Gabapentin 300 MG Capsule TAKE ONE CAPSULE BY MOUTH THREE TIMES A DAY Active Social History Sex Assigned At : Social History Observation Description Sex Assigned At Male Social History Additional Details Category Social Info Options Details Migrated Social History Migrated Social History Alcohol Intake: Occasional 12/02/2022,Tobacco Years: Never smoker 12/02/2022 Encounters Encounter Location Date Provider Diagnosis [facility] [address] [place] [address] 04/21/2024 Cele Dooley Plan Of Treatment No Information Insurance Providers Payer Name Payer Address Payer Phone Subscriber Number Group Number Insured Name Patient Relationship to Insured Coverage Start Date Coverage End Date [facility] [address] [address] [place] [address] [id number] LESTER , GAUDENCIO Spouse - patient is the spouse of the insured Medical (General) History Medical History History ICD Code Problems: Mixed anxiety and depressive d isorder Opioid withdrawal Primary insomnia , Surgical History Surgery Date(Month/Year) Other
--- OUTSIDE RECORDS SUMMARY | 2025-01-29 09:05 | XMS_ITS | Clinical Summary ---
Author Organization [facility] Address [address] [place] [address] Care Team Providers Care Harpsichord Maker Name Role Phone Garfield Parisi MD Unavailable [phone] Mehnaz Freed MD Primary Care Provider [phone] Source Comments [facility],non-owned Affiliates and Associated Physician Practices is amultiple site organization consisting of ambulatory clinics and hospital sitesin [place], [place], [place] and [place]. This disclosure is being madepursuant to the Care Everywhere program and may not contain all information available regarding this patient. Last updated 17.[facility] Allergies No known active allergies Medications * Be aware that medications may not be up to date on this document. Alwaysverify current medications with the patient. hydrocodone-acet aminophen (NORCO) 7.5-325 MG tablet Take 1 Tab by mouth every 4 hours as needed. 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 Gender Identity Not on file Sexual Orientation Not on file Last Filed Vital Signs Vital Sign Reading Time Taken Comments Blood Pressure - - Pulse - - Temperature - - Respiratory Rate - - Oxygen Saturation - - Inhaled Oxygen Concentration - - Weight 124.7 kg (275 lb) 04/10/2013 3:13 PM TRANSITION MANAGER Height 182.9 cm (6') 04/10/2013 3:13 PM TRANSITION MANAGER Body Mass Index 37.3 04/10/2013 3:13 PM TRANSITION MANAGER Plan of Treatment Health Maintenance Due Date [...] VACCINES (1 - Tdap) 11/29/1979 PNEUMOCOCCAL VACCINE 50+ (1 of 1 - PCV) 2010 ZOSTER VACCINE (1 of 2) 2010 DEPRESSION SCREENING 03/22/2024 COVID-19 VACCINE (1 - 2023-2 5 season) 2024 INFLUENZA VACCINE (#1) 2024 Respiratory Syncytial Virus (RSV) Vaccine Pt: [...] age to complete this topic Care Teams Harpsichord Maker Relationship Specialty [place] [address] [place] [address] PCP - General Internal Medicine 04/10/13 [place] [address] [place] [address] Orthopedic Surgery 04/10/13
--- OUTSIDE RECORDS SUMMARY | 2025-01-29 09:05 | XMS_ITS | Encounter Summary ---
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 file Not on file Not on le documented as of this encounter Functional Status * Question Answer Date of Assessment Author BP Location Left arm 05/12/2021 3:50 PM Tati Jean RN BP Method Automatic 05/12/2021 3:50 PM Tati Jean RN * Aguayo Fall Risk Question Answer Date of Assessment Author History of Falling 0 05/12/2021 3:00 PM Tati Rojas RN Secondary Diagnosis 15 05/12/2021 3:00 PM Tati Douglas RN Ambulatory Aids 0 05/12/2021 3:00 PM Tati Boss RN Intravenous Therapy/Heparin/Saline Lock 0 05/12/2021 3:00 PM Jas Rojas RN Gait/Transferring 0 05/12/2021 3:00 PM Tati Rojas RN Mental Status 0 05/12/2021 3:00 PM Tati Santoyo RN Aguayo Fall Risk Score (Score >= 45 places fall precaution order) 15 05/12/2021 3:00 PM Tati Rojas Ma, RN * Alcohol Use Question Answer Date of Assessment Author Q1: How often do you have a drink containing alcohol? 2-4 times a month 05/12/2021 3:39 PM Tati Rojas RN Q3: How often do you have six or more drinks on one occasion? Never 05/12/2021 3:39 PM Tati Rojas RN * Question Answer Date of Assessment Author BP Location Left arm 05/12/2021 3:50 PM Tati Jean RN BP Method Automatic 05/12/2021 3:50 PM Tati Jean RN * ADL Screening Question Answer Date of Assessment Author Hearing - Right Ear Functional 05/12/2021 3:00 PM Tati Douglas RN Hearing - Left Ear Functional 05/12/2021 3:00 PM Tati Rojas RN * Assistive Devices Question Answer Date of Assessment Author Assistive Devices/DME Eyeglasses;CPAP/Bi PA P 05/12/2021 3:00 PM Tati Rojas RN documented as of this encounter Plan of Treatment Not on file documented as of this encounter Visit Diagnoses Not on filedocumented in this encounter Care Teams Water Gas Operator Relationship Specialty Start Date End Date Mehnaz Freed MD [address], [place] [id number] PCP - General 09/16/16 documented as of this encounter
== END 2025-01-29 08:46 | disposition home or self-care (01) ==
LOC: CHSLAB 08:47
PROVIDERS: PCP Internal Medicine; Visit Provider Internal Medicine
DX: C44.321 Squamous cell carcinoma of skin of nose (principal)
CPT/HCPCS: 88305

== ENCOUNTER 2025-02-22 15:09 | Outpatient (CLI) | payer MEDICARE, SELFPAY ==
--- NOTE | ~2025-02-22 | MR_ITS ---
EXAMINATION: MR ankle RT wo con DATE: 02/22/2025 16:35 INDICATION: Right ankle pain TECHNIQUE: Magnetic resonance imaging (MRI) of the right ankle was performed without intravenous contrast. Sequences included sagittal, coronal, and axial proton-density weighted fast spin echo without and with fat saturation. COMPARISON: None. FINDINGS: Medial ankle ligaments: Deep and superficial deltoid ligaments as well as the spring ligament are normal. Lateral ankle ligaments: The anterior and posterior inferior tibiofibular ligaments are normal. The anterior talofibular and calcaneofibular ligaments both appear lax and attenuated without significant surrounding edema consistent with sequela of chronic sprain/partial tears. Posterior talofibular ligaments is normal. Tendons: Mild insertional tendinosis of the Achilles tendon without tear or peritendinitis. The peroneus longus and brevis tendons are normal. The tibialis anterior and extensor hallucis longus and extensor digitorum longus tendons are normal. The tibialis posterior, flexor digitorum longus and flexor hallucis longus tendons are normal. Plantar fascia: Chronic plantar calcaneal enthesopathy with mild thickening and increased signal of the central component of the proximal plantar aponeurosis with moderate-sized osteophyte at its calcaneal origin. No associated marrow or soft tissue edema to suggest acute plantar fasciitis. Bones/other: Moderate osteoarthritis at the right ankle with small region of full/near full- thickness chondral ulceration with mild underlying subarticular edema-like signal change along the anterolateral margin of the tibial plafond. Juxtaposed small region of high-grade chondromalacia with full-thickness chondral ulceration and small central subchondral osteophyte at the anterolateral margin of the talar dome. Mild partial-thickness cartilage loss with smooth chondral surface extending posteriorly and medially across the talar dome and tibial plafond. There is additional mild to moderate osteoarthritis at the calcaneocuboid articulation with deep chondral ulceration at the cephalad aspect of the joint space with mild subarticular edema-like signal change at the dorsally at the anterior process of the calcaneus. There is additional mild to moderate osteoarthritis with moderate and high-grade chondromalacia at the tarsometatarsal joints most prominent at the second tarsal metatarsal joint. Diffuse mild fatty atrophy of the visualized intrinsic musculature of the foot. Fluid: Physiologic amount fluid in the joint spaces. Mild nonfocal diffuse subcutaneous and soft tissue edema throughout the visualized mid and hindfoot and distal aspect of the calf. IMPRESSION: 1. Chronic sprain/partial tears of the anterior talofibular and calcaneofibular ligaments. 2. Mild to moderate polyarticular osteoarthritis with regions of high-grade chondral malacia at the ankle, calcaneocuboid and a few tarsal metatarsal joints. 3. Chronic plantar enthesopathy with moderate-sized plantar calcaneal spur. 4. Mild insertional tendinosis without tear of the distal Achilles tendon. Reviewed, dictated and finalized at location A. MS SUPPORT SPECIALIST IMPRESSION: 1. Chronic sprain/partial tears of the anterior talofibular and calcaneofibular ligaments. 2. Mild to moderate polyarticular osteoarthritis with regions of high-grade cho ndral malacia at the ankle, calcaneocuboid and a few tarsal metatarsal joints. 3. Chronic plantar enthesopathy with moderate-sized plantar calcaneal spur. 4. Mild insertional tendinosis without tear of the distal Achilles tendon.
== END 2025-02-22 15:10 | disposition home or self-care (01) ==
PROVIDERS: PCP Internal Medicine; Visit Provider Internal Medicine
DX: M25.571 Pain in right ankle and joints of right foot (principal); S93.491A Sprain of other ligament of right ankle, initial encounter; M17.11 Unilateral primary osteoarthritis, right knee; M77.31 Calcaneal spur, right foot; M76.61 Achilles tendinitis, right leg
CPT/HCPCS: 73721

== ENCOUNTER 2025-03-13 01:23 | Day surgery (SDC) | payer MEDICARE, SELFPAY ==
--- OUTSIDE RECORDS SUMMARY | 2024-04-06 05:00 | XMS_ITS ---
Author Organization [facility] Address [facility] [place] [address] Care Team Providers Care Cardiac Rn Name Role Phone Abdiaziz ZAMBRANO, Mehnaz Primary Care Provider Unavaila vicki Soumya, Thena Unavailable [phone] Social History Sex Assigned At : Social History Observation Description Sex Assigned At Male Encounters Encounter Location Date Provider Diagnosis [facility] [employer] [place] [address] [place] [address] 04/06/2024 Thena Soumya Plan Of Treatment No Information Progress Notes * DEA LESTER GDOB:1960 (64 yo M)Acc No.[id number]:04/06/2024 Patient: DEA VILLAFUERTE Provider: Marcella DUBOIS MD :1960 A ge:63 Y S ex:Male Date:04/06/2024 Address:[address] [place], [place] [id number] Pcp:Mehnaz Freed MD Billing Information: * Procedure Codes: * Electronic signature of Muna Dubois MD on 03/13/2025 at 02:14 AM MERCHANDISE EXAMINER Sign off status: Pending * Provider: Marcella DUBOIS MD Date: 0 04/06/2024 Generated for Printi ng/Faxing/eTransmitting on: 1 05/14/2024 02:14 AM MERCHANDISE EXAMINER
[2025-02-27 11:17] VITALS: BMI 37.3
--- OUTSIDE RECORDS SUMMARY | 2025-03-13 02:14 | XMS_ITS | Data Portability ---
Author Organization [place] [facility] [employer], Main Office Address [address] [place] [address] Care Team Providers Care Subacute Nurse Name Role Phone AYLIN SANCHEZ Primary Care Provider Assessment No assessment recorded. Plan of Treatment Reminders Order Date Submit Date Provider Last Modified By Organization Details Last Modified Time Details Appointments None recorded. Lab None recorded. Referral cable worker helper referral 2024 025 CHRISTINA Baez MD, [address] [place] [address], [place] Velaz[place], [address], 16:53:20 Procedures None recorded. Surgeries None recorded. Imaging None recorded. Medication Orders ciprofloxac in 0.3 %-dexametha sone 0.1 % ear drops,suspe nsion 2024 025 CHRISTINA [facility], [address] [place], [address], 14:27:31 Patient TargetsNo targets recorded. Patient Instructions Encounter Date Encounter Id Patient Instructions Last Modified By Organization Details Last Modified Time 06/14/2024 [id number] DISCUSSED COMPLE TE LEFT TYMPANIC MEMBRANE PERFORATION WITH PATIENT AND HIS SPOUSE. CIPRODEX PRESCRIBED FOR MANAGEMENT. REFERRAL PLACED FOR DR. BAEZ TO ASSESS FOR TYMPANOPLASTY NEEDS IF INDICATED. HE WILL HAVE AN AUDIOGRAM AND TYMPANOGRAM COMPLETED. WE WILL FOLLOW UP ON THOSE RESULTS BECOME AVAILABLE. 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 BARCODE Not Available 2024 08:50:08 07/01/19 25 06/30/2024 CT, neck, soft tissu e, w/ contr ast No observ ation record ed. BARCODE Not Available 2024 12:07:18 Result Notes None recorded. Problems Name Problem SNOMED Code Status Onset Date Resolution Date Notes Provider Name and Address Organization Details Recorded Time Osteoarthr itis of knee 286162556 Active Not Available [facility] 3 13:13:47 Disorder of prosthetic joint 478878964 Active Not Available [facility] 3 13:13:47 Knee pain Active Not Available [facility] 3 13:13:47 Vitamin D deficiency 37776628 Active Not Available [facility] 3 13:13:47 Chronic cough 59350987 Active 2023 Jorge Chen MD [address], [place], [address] , [employer] [facility] [employer] 4 12:28:50 Deviated nasal septum 729306735 Active 2023 Jorge Chen MD [address], [place], [address] , [employer] [facility] 4 12:28:56 Perforatio n of left tympanic membrane 7780326471138 103 Active 2024 Carolina Loera RN null, [facility] 5 14:21:29 Chronic sinusitis 20968161 Active 2024 Carolina Loera RN null, [place] [facility] [employer] 5 12:09:06 Chronic sinusitis 11377809 Active 2024 Jorge Chen MD [address], [place], [address] , [facility] 5 12:11:31 Problem Notes None recorded. Medical Equipment None Reported. Allergies Allergen ID Allergen Name Allergen Category Reaction Reaction Severity Criticality Documentation Date Start Date Code Code System Note Provider Name and Address Organization Details Recorded Time 05227 metformin medicatio n diarrhea Not available Not available 11/24/2023 6809 SUE Goldman, [facility] [employer] 4 15:31:15 03792 rosuvasta tin medicatio n myalgias (muscle pain) Not available Not available 11/24/2023 03903 2 SEU Goldman, [facility] [employer] 4 15:31:25 Medications Name Sig Start Date [...] propionate 50 mcg/actuat ion nasal spray,susp ension [place] 1 spray every day by intranas al [...] Updated DateTime 06/14/2024 182.88 cm 37.4 kg/m2 367667.49 g 97.7 [degF] Carolina Loera RN [facility] [employer] [facility] 06/14/2024 14:10:38 Date Recorded Body height Body mass index (BMI) Body weight Body temperature Provider Name and Address Organization Details Last Updated DateTime 06/21/2024 182.88 cm 37.6 kg/m2 078329.24 g 98 [degF] Carolina Loera RN [facility] [employer] [facility] 06/21/2024 11:58:06 Date Recorded Body height Body mass index (BMI) Body weight Body temperature Provider Name and Address Organization Details Last Updated DateTime 11/25/2023 182.88 cm 38.5 kg/m2 800740.95 g 97.9 [degF] GRACIELA Mccrary [facility] [employer] [facility] 11/25/2023 12:02:57 Social History None recorded. Functional Status Question Answer Note LastModified by Organizat ion Details LastModified Time What is your level of alcohol consumption? Occasional [email or web address] Information not available 11/25/2023 Mental Status None recorded. Family History Relationship [...] Diagnosis SNOMED-CT Code Diagnosis ICD10 Code Diagnosis IMO Codes Diagnosis Note [id number] Jorge Chen MD [facility] [place] [address] [place] [address] 11/25/2023 11:47:57 11/25/2023 13:53:20 Chronic cough 11036117 R05.3 Deviated nasal septum 12 0433170 J34.2 [id number] Jorge Chen MD [facility] [place] [address] [place] [address] 06/14/2024 13:56:19 06/14/2024 14:29:10 Perforation of left tympanic membrane 1048937848 322947 H72.92 [id number] MD MISSAEL [facility] [place] [address] [place] [address] 06/21/2024 11:53:28 06/23/2024 16:22:35 Chronic cough 63209173 R05.3 Chronic sinusitis 543572 00 J32.9 Health Concerns Section Related Observation LastModified by Organization Detai ls LastModified Time None Recorded Concern Status LastModified by Organization Details LastModified Time None Recorded Advance Directives Directive None Recorded Payers Insurance Date Sequence Insurance Name Policy Number Policy Askew Covered Member ID [id number] Member ID Guarantor Name 06/14/2024 1 [facility] PRIOR TO 03/22/2024 (PPO) Prieto Ivan [id number] [facility] Prieto Ivan 11/25/2023 1 [facility] (PPO) [id number] Prieto Ivan [id number] Prieto Ivan 06/14/2024 1 [employer] (POS) Prieto Ivan [id number] Prieto Ivan 06/20/2024 1 [employer] (POS II) [id number] Gus Ivan [id number] Prieto Ivan Notes Date Note Type [...] is on nasal CPAP Jorge Chen MD [address] [place] [address], [address], [address], [facility] 11/25/2023 12:29:42 06/14/2024 text/html this patient has [...] AYO Kennedy [address], [place], [address], [employer] 06/14/2024 14:28:39 06/21/2024 text/html this patient reports a chronic cough for 2 years. He discontinued his lisinopril but the cough persisted. He recently had a neck CT which was normal. 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
--- OUTSIDE RECORDS SUMMARY | 2025-03-13 02:14 | XMS_ITS | Clinical Summary ---
Author Organization [facility] Address [address] [place] [address] Care Team Providers Care Can Crimper Name Role Phone Garfield Parisi MD Unavailable [phone] Mehnaz Freed MD Primary Care Provider [phone] Source Comments [facility],non-owned Affiliates and Associated Physician Practices is amultiple site organization consisting of ambulatory clinics and hospital sitesin [place], [place], [place] and [place]. This disclosure is being madepursuant to the Care Everywhere program and may not contain all information available regarding this patient. 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 Gender Identity Not on file Sexual Orientation Not on file Last Filed Vital Signs Vital Sign Reading Time Taken Comments Blood Pressure - - Pulse - - Temperature - - Respiratory Rate - - Oxygen Saturation - - Inhaled Oxygen Concentration - - Weight 124.7 kg (275 lb) 04/10/2013 3:13 PM RUBBER ENGRAVER Height 182.9 cm (6') 04/10/2013 3:13 PM RUBBER ENGRAVER Body Mass Index 37.3 04/10/2013 3:13 PM RUBBER ENGRAVER Plan of Treatment Health Maintenance Due Date [...] DEPRESSION SCREENING 03/22/2024 COVID-19 VACCINE (1 - 2024-2 6 season) 2024 INFLUENZA VACCINE (#1) 2024 Respiratory [...] age to complete this topic Care Teams Can Crimper Relationship Specialty [place] [address] [place] [address] PCP - General Internal Medicine 04/10/13 [place] [address] [place] [address] Orthopedic Surgery 04/10/13
--- OUTSIDE RECORDS SUMMARY | 2025-03-13 02:14 | XMS_ITS | Clinical Summary ---
Author Organization [facility] Address [address] [place] [address] Care Team Providers Care Zoo Caretaker Name Role Phone None, Provider Primary Care Provider Unavaila ble Encounters Date Type Department Care Team Description 03/07/2025 11:28 AM SPRING MAKER - 03/07/2025 11:59 PM SPRING MAKER Hospital Encounter [facility] Radiation Oncology [address] [address] Robby Berman MD Discharge Disposition: Home or Self Care (Routine Discharge) 03/07/2025 Travel 02/21/2025 10:30 AM SPRING MAKER - 02/21/2025 11:59 PM SPRING MAKER Hospital Encounter [facility] Radiation [address] [address] Robby Berman MD Discharge Disposition: Home or Self Care (Routine Discharge) 02/21/2025 Travel from Last 3 Months Social History Tobacco Use Types Packs/Day Years Used Date Smoking Tobacco: Never Assessed Sex and Gender Information Value Date Recorded Sex Assigned at Not on file Legal Sex Male 11:01 PM CDT Gender Identity Not on file Sexual Orientation Not on file Last Filed Vital Signs Vital Sign Reading Time Taken Comments Blood Pressure 152/82 02/20/2023 9:05 PM SPRING MAKER Pulse 92 02/20/2023 9:05 PM SPRING MAKER Temperature 36.7 C (98 F) 02/20/2023 7:47 PM SPRING MAKER Respiratory Rate 18 02/20/2023 9:05 PM SPRING MAKER Oxygen Saturation 97% 02/20/2023 9:05 PM SPRING MAKER Inhaled Oxygen Concentration - - Weight 129.3 kg (285 lb) 02/20/2023 7:48 PM SPRING MAKER Height 182.9 cm (6') 02/20/2023 7:48 PM SPRING MAKER Body Mass Index 38.65 02/20/2023 7:48 PM SPRING MAKER Plan of Treatment Health Maintenance Due Date Last Done Comments Colorectal Cancer Screening Colonoscopy (10 Years) 1960 Annual Physical 11/29/1963 Hepatitis C 1978 Pneumococcal Vaccine: 50+ Years (2 of 2 - PCV20 or PCV21) 09/20/2015 09/19/2014 COVID-19 Vaccine (3 - season) 2024 07/24/2020, 06/25/2020 Influenza Adult (#1) 2024 12/30/2020, 01/31/2019, 02/03/2017, Additional history exists DTaP, Tdap and Td Vaccines (2 - Td or Tdap) 07/17/2031 07/16/2021 RSV Immunization or 60+ Years (1 - 1-dose 75+ series) 11/29/2035 Zoster Vaccines Completed 03/21/2020, 09/27/2019 Hepatitis A Vaccines Aged Out No long er eligible based on patient's age to complete this topic Meningococcal B Vaccine Aged Out No l onger eligible based on patient's age to complete this topic Meningococcal Vaccine Aged Out No ruth adonis eligible based on patient's age to complete this topic RSV Immunizations Under 20 Months Aged Out No longer eligible based on patient's age to complete this topic Insurance [employer] MEDICARE Care Teams Zoo Caretaker Relationship Specialty Start Date End Date None, Provider, PCP - General UNKNOWN PHYSICIAN SPECIALTY 02/20/23
--- OUTSIDE RECORDS SUMMARY | 2025-03-13 02:14 | XMS_ITS | Encounter Summary ---
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
--- OUTSIDE RECORDS SUMMARY | 2025-03-13 02:14 | XMS_ITS | Clinical Summary ---
Author Organization [facility] Address [facility] [place] [address] Care Team Providers Care Barge Captain Name Role Phone Mehnaz Freed MD Primary Care Provider Allergies Active Allergy Reactions Criticality Noted Date Comments Metformin Diarrhea Low 07/25/2024 Rosuvastatin Muscle pain Medium 07/25/2024 Shrimp Redness Low 05/12/2021 ---can eat, just turns eyes red, no SOB Gsjizno-Bsc-Ivm Reductase Inhibitors Joint pain Low 05/12/2021 Medications [...] (04/02/2021): Added automatically from request for surgery [id number] Arthritis of carpometacarpal (CMC) joint of left thumb 07/10/2020 Overview (07/10/2020): Added automatically from request for surgery [id number] Arthritis of carpometacarpal (CMC) joint of righ t thumb 03/20/2020 Overview (03/20/2020): Added automatically from request for surgery [id number] Immunizations Immunization Administration Dates Next Due Influenza, [...] on file 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 Gender Identity Not on file Sexual Orientation Not on file Occupation Industry Job Start Date Job End Date [employer] Not on file Not on file Not [...] 03/21/2020, 09/27/2019 Medical Devices Implanted Type Area Machine Precision Etcher Device Identifier Shelf Expiration Date Model / Serial / Lot [employer] Simplex P Radiopaque Full Dose Cement Bone Sterile 6191-1-010 - Sna - [id number] Implanted:Qty: 1 on 10/21/2021 by Alirio Buenrostro MD at [facility] Bone Cement [employer] 02/19/2024 6191-1-010 / NA / [id number] Description:Implant times ap proximate [employer] Head Resurfacing Shoulder Inhance 40mm Large [id number] - Sna - [id number] Implanted:Qty: 1 on 10/21/2021 by Alirio Buenrostro MD at [facility] Other - see comments Left: Shoulder [employer] [id number] 05/19/2026 [id number] / NA / [id number] Inhance Shoulder System Anatomic Offset Taper Adapter Implanted:Qty: 1 on 10/21/2021 by Alirio Buenrostro MD at [facility] Other - see comments Left: Shoulder DEPUY Manyeta [id number] 01/19/2026 0 / NA / [id number] Description:[id number] 200.00 SEE SUPPLY PAGE FOR CHARGE INFO [employer] Head Humeral Shoulder Inhance 17x48.5mm E[employer]ium [id number] - Sna - [id number] Implanted:Qty: 1 on 10/21/2021 by Alirio Buenrostro MD at [facility] Other - see comments Left: Shoulder [employer] [id number] 01/19/2026 [id number] / NA / [id number] [employer] Component Glenoid Anatomic Inhance 29mm Polyethylene Large [id number] - Sna - [id number] Implanted:Qty: 1 on 10/21/2021 by Alirio Buenrostro MD at [facility] Other - see comments Left: Shoulder [employer] [id number] 02/18/2026 [id number] / NA / [id number] [employer] Ar-8978-Cp Internalbrace Kit Hand Wrist Set Implant Ligament Augmentation - [id number] Implanted:Qty: 1 on 04/22/2020 by Ghassan Brady MD at [facility] [place] Right: Wrist [employer] 11/19/2024 AR-8978-CP / / [id number] [employer] Ar-8978-Cp Internalbrace Kit Hand Wrist Set Implant Ligament Augmentation - [id number] Implanted:Qty: 1 on 08/05/2020 by Ghassan Brady MD at [facility] [place] Left: Hand [employer] 05/19/2025 AR-8978-CP / / [id number] [employer] 6191-1-010 Simplex P Radiopaque Full Dose Cement Bone Sterile - [id number] Implanted:Qty: 1 on 05/23/2021 by Alirio Buenrostro MD at [facility] Right: Shoulder [employer] 05/20/2023 6191-1-010 / / [id number] Inhance Shoulder System Anatomic Glenoid 31.5mm X-Large Implanted:Qty: 1 on 05/23/2021 by Alirio Buenrostro MD at [facility] Right: Shoulder [employer] [id number] 11/19/2025 0 / / [id number] Inhance Shoulder System Anatomic Offset Taper Adapter Implanted:Qty: 1 on 05/23/2021 by Alirio Buenrostro MD at [facility] Right: Shoulder [employer] [id number] 11/19/2025 0 / / [id number] Inhance Shoulder System Short Stem [id number] Large Implanted:Qty: 1 on 05/23/2021 by Alirio Buenrostro MD at [facility] Right: Shoulder [employer] 11/19/2025 5199-03-25 0 / / [id number] Inhance Shoulder System Humeral Head 48.5mmx 17mm Implanted:Qty: 1 on 05/23/2021 by Alirio Buenrostro MD at [facility] Right: Shoulder [employer] 10/19/2025 0 / / [id number] Procedures Procedure Name Priority Date/Time Associated Diagnosis Comments EGFR Routine 10/08/2021 12:29 PM CDT Shoulder arthritis Preoperative testing POCT HEMOGLOBIN A1C Routine 10/08/2021 1 2:22 PM CDT from Last 3 Months or Most Recently Relevant to Health Maintenance Results * eGFR (10/08/2021 12:29 PM CDT) eGFR >90 90 - 130 mL/min/1. 73 m2 [facility] Comment: Interpretive Data Reference Interval Normal >/= [...] ORDERABLES F inal Result Performing Organization Address [facility] de Phone Number [facility] [address] [place] [address] * POCT hemoglobin A1c (10/08/2021 12:22 PM CDT) [facility] Hgb A1C, POC 5.6 4.0 - 5.6 % [facility] Est Average Gluc POC 114 mg/dL [facility] Comment: The ADA recommends reporting an estimated Average Glucose (eAG) with all Hemoglobin A1c results using the equation derived from a study of 507 normal and diabetic adults. Minority populations were underrepresented and children were not included. (Diabetes Care 31:9462-5290, 2008). The eAG is not equivalent to a fasting glucose. Blood 10/08/2021 12:2 2 PM CDT 10/08/2021 12:22 PM CDT Alirio Buenrostro MD POINT OF CARE TEST ORD ERABLES Final Result Performing Organization Address [facility] Co de Phone Number [facility] [employer] [place] [address] from Last 3 Months or Most Recently Relevant to Health Maintenance Insurance [facility] H[facility]/PPO Address: [facility] [address] [place] [address] [facility] HMO [facility] HMO/PPO Address: [facility] [id number] [place] [address] [facility] PPO [facility] HMO/PPO Address: [address] [address] [place] [address] [place] [employer] Advance Directives For more information, please contact: [phone] * Full Code (Latest Code Status on File) Date Activated Date Inactivated Comments 10/21/2021 11:09 AM 10/21/2021 10:54 PM * Full Code Date Activated Date Inactivated Comments 05/23/2021 12:26 PM 05/23/2021 11:19 PM Care Teams Barge Captain Relationship Specialty Start Date End Date Mehnaz Freed MD [address] [place] [address] PCP - General 09/16/16
[2025-03-13 07:46] VITALS: BP 165/79; PULSE 66; RESP 16; TEMP 36.7; O2SAT 96; BMI 36.8
[2025-03-13] MEDS: LACTATED RINGERS 1,000 ML 150 ML IV CONT (07:57)
--- NOTE | 2025-03-13 08:02 | WPDANESEPPF ---
Anes - Initial Pre Proc Eval Procedure: Operation Date: 03/13/25 09:00 Proposed Procedures p Screening Colonoscopy - Denys Rushing DO Date/Time: 03/13/25 08:02 Surgeon: Denys Rushing DO Pre Op Diagnosis: Positive Cologuard Patient Data Age: 64 Gender: M Height: 1.83 m Weight: 123.2 kg Last Vital Signs Temp 36.7 C 03/13/25 07:46 Pulse 66 03/13/25 07:46 Resp 16 03/13/25 07:46 BP 165/79 H 03/13/25 07:46 Pulse Ox 96 03/13/25 07:46 O2 Del Method Room Air 03/13/25 07:46 Allergies Allergy/AdvReac Type Severity Reaction Status Date / Time shellfish derived Allergy Mild Itching Verified 03/13/25 07:44 SHELLFISH Allergy Unknown ITCHING Uncoded 03/12/25 10:44 AND TINGLING Home Medications ?Medication ?Instructions ?Recorded ?Confirmed ?Type lisinopril 20 1 tablet PO BID 01/22/20 03/12/25 History mg-hydrochlorothiazide 12.5 mg tablet metformin 500 mg tablet 1,000 mg PO BID 07/22/20 03/12/25 History alirocumab 75 mg/mL subcutaneous 75 mg subcut Q15D 11/30/22 03/12/25 History pen injector (Praluent Pen) Held on 02/27/25. Instructions: has not started yet amlodipine 10 mg tablet 10 mg PO DAILY 11/30/22 03/13/25 History duloxetine 60 mg capsule,delayed 60 mg PO BID 11/30/22 03/12/25 History release fluticasone propionate 50 2 spray intranasal BID 2 weeks #16 11/30/22 03/12/25 Rx mcg/actuation nasal grams spray,suspension (Flonase Allergy Relief) glimepiride 2 mg tablet 2 mg PO DAILY 11/30/22 03/13/25 History methocarbamol 500 mg tablet 1,000 mg (2 x 500 mg) PO Q6H PRN 11/30/22 03/12/25 Rx muscle pain #40 tabs doxycycline hyclate 100 mg tablet 100 mg PO DAILY 02/27/25 03/13/25 History gabapentin 300 mg capsule 300 mg PO Q12H PRN pain 02/27/25 03/13/25 History losartan 100 1 tablet PO DAILY 02/27/25 03/13/25 History mg-hydrochlorothiazide 25 mg tablet pantoprazole 40 mg tablet,delayed 40 mg PO DAILY 02/27/25 03/12/25 History release triamterene 37.5 1 tablet PO DAILY 02/27/25 03/12/25 History mg-hydrochlorothiazide 25 mg tablet Laboratory Tests 03/13/25 07:53 POC Capillary Glucose 175 H mg/dl (65-105) Patient hx anesthesia problems: none Family hx anesthesia problems: none Results Review: All pre-operative results and documents have been reviewed as part of the pre-operative evaluation. PMFSH Past Medical History Medical History Arthritis of ankle, right, degenerative Diverticula of intestine Colon cancer screening Diarrhea LLQ abdominal pain Surgical History Surgical History History of hernia surgery History of knee replacement Family History Family History Other Family history of lung cancer Family history of type 2 diabetes mellitus Social History Social History Smoking status: Never smoker Alcohol intake: current Drinks per week: 2 Substance use: never Substance use type: does not use Living arrangements: with family Spiritual care concerns: No Anes - Eval Final PreProcedure Day of Procedure 03/13/25 08:02 Patient weight: obese Heart: regular rate and rhythm Lungs: clear to auscultation Airway: Mallampati scale class II Neurological: alert and oriented Last oral intake: >/= 8 hours ASA classification: III Emergent: no Anesthetic plan: proceed Anesthesia type and monitoring: general GIVS and standard monitoring Results Review: All pre-operative results and documents have been reviewed as part of the pre-operative evaluation. Informed Consent: The patient's anesthetic plan and its attendant risks and benefits were discussed with the patient/family/POA. Questions were solicited and answers provided to the satisfaction of the patient/family/POA.
--- NOTE | 2025-03-13 08:47 | PM.IMHP2 ---
H&P: HPI History of Present Illness Date/Time: 03/13/25 08:47 Chief Complaint: Positive Cologuard Narrative: This is a 64-year-old man who presents for colonoscopy. He recently had a Cologuard test that was positive. His last colonoscopy was 14 or 15 years ago. He denies hematochezia or melena. He denies family history of colon cancer. Review of Systems Review of Systems: All systems reviewed & are unremarkable except as noted in HPI and below Constitutional: Constitutional: Denies chills, Denies fever(s), Denies headache(s) and Denies weight loss Eyes: Eyes: Denies change in vision ENT: Denies dizziness, Denies headache(s), Denies neck mass and Denies throat swelling Cardiovascular: Cardiovascular: Denies chest pain, Denies lightheadedness and Denies dyspnea Respiratory: Respiratory: Denies cough, Denies dyspnea and Denies wheezing Gastrointestinal: Gastrointestinal: Denies abdominal pain, Denies change in bowel habits, Denies nausea and Denies vomiting Genitourinary: Genitourinary: Denies hematuria and Denies dysuria Musculoskeletal: Musculoskeletal: Reports as per HPI Integumentary/Breasts: Skin/Breast: Reports as per HPI Neurologic: Denies dizziness and Denies headache(s) Allergic/Immunologic: Allergic/Immunologic: Denies throat swelling and Denies wheezing PMFSH Past Medical History Medical History Arthritis of ankle, right, degenerative Diverticula of intestine Colon cancer screening Diarrhea LLQ abdominal pain Surgical History Surgical History History of hernia surgery History of knee replacement Family History Family History Other Family history of lung cancer Family history of type 2 diabetes mellitus Social History Social History Smoking status: Never smoker Alcohol intake: current Drinks per week: 2 Substance use: never Substance use type: does not use Living arrangements: with family Spiritual care concerns: No Meds Home Medications and Allergies Home Medications ?Medication ?Instructions ?Recorded ?Confirmed ?Type lisinopril 20 1 tablet PO BID 01/22/20 03/12/25 History mg-hydrochlorothiazide 12.5 mg tablet metformin 500 mg tablet 1,000 mg PO BID 07/22/20 03/12/25 History alirocumab 75 mg/mL subcutaneous 75 mg subcut Q15D 11/30/22 03/12/25 History pen injector (Praluent Pen) Held on 02/27/25. Instructions: has not started yet amlodipine 10 mg tablet 10 mg PO DAILY 11/30/22 03/13/25 History duloxetine 60 mg capsule,delayed 60 mg PO BID 11/30/22 03/12/25 History release fluticasone propionate 50 2 spray intranasal BID 2 weeks #16 11/30/22 03/12/25 Rx mcg/actuation nasal grams spray,suspension (Flonase Allergy Relief) glimepiride 2 mg tablet 2 mg PO DAILY 11/30/22 03/13/25 History methocarbamol 500 mg tablet 1,000 mg (2 x 500 mg) PO Q6H PRN 11/30/22 03/12/25 Rx muscle pain #40 tabs doxycycline hyclate 100 mg tablet 100 mg PO DAILY 02/27/25 03/13/25 History gabapentin 300 mg capsule 300 mg PO Q12H PRN pain 02/27/25 03/13/25 History losartan 100 1 tablet PO DAILY 02/27/25 03/13/25 History mg-hydrochlorothiazide 25 mg tablet pantoprazole 40 mg tablet,delayed 40 mg PO DAILY 02/27/25 03/12/25 History release triamterene 37.5 1 tablet PO DAILY 02/27/25 03/12/25 History mg-hydrochlorothiazide 25 mg tablet Allergies Allergy/AdvReac Type Severity Reaction Status Date / Time shellfish derived Allergy Mild Itching Verified 03/13/25 07:44 SHELLFISH Allergy Unknown ITCHING Uncoded 03/12/25 10:44 AND TINGLING Vital Signs Vital Signs - 24 hr 03/13/25 07:46 Temperature 98.0 F Pulse Rate 66 Respiratory Rate 16 Blood Pressure 165/79 H Pulse Oximetry 96 Oxygen Delivery Room Air Exam Const: General: no acute distress and alert Orientation/consciousness: patient oriented x3 HENMT: Head: normocephalic and atraumatic Ears: hearing grossly normal bilaterally Face/Nose/Sinus: Normal nares present Mouth: Yes Normal oral and palatal mucosa present Eyes: Periorbital: periorbital findings normal Sclera: sclerae normal EOM: EOMs intact bilaterally Neck: Neck: normal visual inspection, no lymphadenopathy and trachea midline Chest: Chest palpation & inspection: normal inspection of the chest Resp: Effort & Inspection: normal respiratory effort Auscultation: clear to auscultation bilaterally Cardio: Jugular venous distension: no JVD Rate: regular rate Rhythm: regular rhythm Heart sounds: S1 normal heart sound present and S2 normal heart sound present Peripheral pulses: Peripheral pulses 2+ throughout GI: Inspection: normal to inspection GI Palp: Yes Soft to palpation, No Tenderness to palpation present (GI), No Guarding due to palpation present (GI) and No Rebound tenderness present Percussion: Yes normal to percussion Auscultation: normal bowel sounds : General: Yes no CVA tenderness Back/Spine/Pelvis: Back: no CVA tenderness Neuro: General: patient oriented x3, no focal motor deficits and CN's II-XI intact bilaterally Cognition (Neuro): normal cognition Speech: normal speech Motor exam (neuro): 5/5 motor strength present throughout Extrem: General: capillary refill normal and no clubbing, cyanosis or edema Assessment and Plan Assessment and plan (1) Positive colorectal cancer screening using Cologuard test: Code(s): R19.5 - Other fecal abnormalities Status: Acute Assessment and Plan: I have recommended colonoscopy. I have discussed the procedure, risks, benefits, and alternatives. Questions were answered. Patient is agreeable to proceed.
--- NOTE | 2025-03-13 09:15 | S_PTH ---
PATIENT: Prieto Ivan LOC: [facility] U#:[id number] AGE/SX: 64/M ROOM: RE03/13/[address]: Denys Rushing DO : 1960 BED: DIS: 03/13/2025 SPEC #: [id number] RECD: 03/13/25 09:38 STATUS: ROBI RECuate #: [id number] DAVEY: 03/13/25 09:[address]: Denys Rushing DEPT: [facility] Surgical RECD BY: Devin Urrutia ENTERED: 03/13/25 09:39 SP TYPE: Surgical OTHR DR: Mehnaz Freed MD Tissues: A - Colon Polypectomy B - Colon Polypectomy Procedures: Hematoxylin and Eosin Stain Gross and Microscopic Level 4
[2025-03-13 09:16] VITALS: BP 111/73; PULSE 67; RESP 23; O2SAT 95
[2025-03-13 09:26] VITALS: BP 118/81; PULSE 68; RESP 22; O2SAT 96
[2025-03-13 09:36] VITALS: BP 145/79; PULSE 61; RESP 19; O2SAT 96
--- NOTE | 2025-03-14 06:24 | SUR.PREOP ---
0600 Pt called reporting bright red blood in the toilet when he went to the BR this morning. Discussed his findings from his procedure, how it is normal to see some blood with has many polyps that were removed. Instucted patient if it continued to call the doctor's office or go to the nearest ER. Patient voiced understanding. 0625 Patient called back and wanted to sent a picture of what he was seeing when he went to the bathroom. I told him I didn't have a way to get those. Instructed patient to call Dr. Liu. Dr. Liu's contact phone number given to patient;.
== END 2025-03-13 09:42 | disposition home or self-care (01) ==
PROVIDERS: PCP Internal Medicine; Visit Provider Surgery
PROC: 0DJD8ZZ Inspection of Lower Intestinal Tract, Via Natural or Artificial Opening Endoscopic (ICD-10-PCS; CPT 45378; principal; 2025-03-13 09:00)
DX: R19.5 Other fecal abnormalities (principal); D12.0 Benign neoplasm of cecum; D12.3 Benign neoplasm of transverse colon; K57.30 Diverticulosis of large intestine without perforation or abscess without bleeding; Z83.3 Family history of diabetes mellitus
CPT/HCPCS: 45385; 82948; 88305; J2003; J2704; J7120

== ENCOUNTER 2025-03-14 08:27 | Day surgery (SDC) | payer MEDICARE, SELFPAY ==
--- OUTSIDE RECORDS SUMMARY | 2024-04-06 05:00 | XMS_ITS ---
Author Organization [facility] [employer] [facility] Address [facility] [facility] [address] [place] [address] Care Team Providers Care Computing Systems Mechanic Name Role Phone Abdiaziz ZAMBRANO, Mehnaz Primary Care Provider Unavaila vicki Soumya, Thena Unavailable [phone] Social History Sex Assigned At : Social History Observation Description Sex Assigned At Male Encounters Encounter Location Date Provider Diagnosis [facility] [employer] [place] [address] [place] [address] 04/06/2024 Thena Soumya Plan Of Treatment No Information Progress Notes * DEA LESTER GDOB:1960 (64 yo M)Acc No.[id number]:04/06/2024 Patient: DEA VILLAFUERTE Provider: Marcella DUBOIS MD :1960 A ge:63 Y S ex:Male Date:04/06/2024 Address:[address] [place], [place] [id number] Pcp:Mehnaz Freed MD Billing Information: * Procedure Codes: * Electronic signature of Muna Dubois MD on 03/14/2025 at 08:30 AM ENVIRONMENTAL HEALTH NURSE Sign off status: Pending * Provider: Marcella DUBOIS MD Date: 0 04/06/2024 Generated for Printi ng/Faxing/eTransmitting on: 1 05/15/2024 08:30 AM ENVIRONMENTAL HEALTH NURSE
--- OUTSIDE RECORDS SUMMARY | 2025-03-14 08:30 | XMS_ITS | Clinical Summary ---
Author Organization [facility] Address [facility] [place] [address] Care Team Providers Care Embedded Nurse Name Role Phone Mehnaz Freed MD Primary Care Provider [phone] Allergies Active Allergy Reactions Criticality Noted Date Comments Metformin Diarrhea Low 07/25/2024 Rosuvastatin Muscle pain Medium 07/25/2024 Shrimp Redness Low 05/12/2021 ---can eat, just turns eyes red, no SOB Sqfqmtc-Axc-Axz Reductase Inhibitors Joint pain Low 05/12/2021 Medications [...] (04/02/2021): Added automatically from request for surgery [id number] Arthritis of carpometacarpal (CMC) joint of left thumb 07/10/2020 Overview (07/10/2020): Added automatically from request for surgery [id number] Arthritis of carpometacarpal (CMC) joint of righ t thumb 03/20/2020 Overview (03/20/2020): Added automatically from request for surgery [id number] Immunizations Immunization Administration Dates Next Due Influenza, [...] on file 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 Bone Cement [employer] 02/19/2024 6191-1-010 / NA / [id number] Description:Implant times ap proximate [employer] Head Resurfacing Shoulder Inhance 40mm Large [id number] - Sna - [id number] Implanted:Qty: 1 on 10/21/2021 by Alirio Buenrostro MD at [facility] Other - see comments Left: Shoulder [employer] [id number] 05/19/2026 [id number] / NA / [id number] Inhance Shoulder System Anatomic Offset Taper Adapter Implanted:Qty: 1 on 10/21/2021 by Alirio Buenrostro MD at [facility] Other - see comments Left: Shoulder [employer]PU[employer] [id number] 01/19/2026 0 / NA / [id number] Description:[id number] Q14446 200.00 SEE SUPPLY PAGE FOR CHARGE INFO [employer] Head Humeral Shoulder Inhance 17x48.5mm [place] [employer] [id number] - Sna - [id number] Implanted:Qty: 1 on 10/21/2021 by Alirio Buenrostro MD at [facility] Other - see comments Left: Shoulder [employer] [id number] 01/19/2026 [id number] / NA / [id number] [employer] Component Glenoid Anatomic Inhance 29mm Polyethylene Large [id number] - Sna - [id number] Implanted:Qty: 1 on 10/21/2021 by Alirio Buenrostro MD at [facility] Other - see comments Left: Shoulder [employer] [id number] 02/18/2026 [id number] / NA / [id number] [employer] Ar-8978-Cp Internalbrace Kit Hand Wrist Set Implant Ligament Augmentation - [id number] Implanted:Qty: 1 on 04/22/2020 by Ghassan Brady MD at [facility] [place] Right: Wrist [employer] 11/19/2024 AR-8978-CP / / [id number] [employer] Ar-8978-Cp Internalbrace Kit Hand Wrist Set Implant Ligament Augmentation - [id number] Implanted:Qty: 1 on 08/05/2020 by Ghassan Brady MD at [facility] [place] Left: Hand [employer] 05/19/2025 AR-8978-CP / / [id number] [employer] 6191-1-010 Simplex P Radiopaque Full Dose Cement Bone Sterile - [id number] Implanted:Qty: 1 on 05/23/2021 by Alirio Buenrostro MD at [facility] Right: Shoulder [employer] 05/20/2023 6191-1-010 / / [id number] Inhance Shoulder System Anatomic Glenoid 31.5mm X-Large Implanted:Qty: 1 on 05/23/2021 by Alirio Buenrostro MD at [facility] Right: Shoulder [employer] [id number] 11/19/2025 0 / / [id number] Inhance Shoulder System Anatomic Offset Taper Adapter Implanted:Qty: 1 on 05/23/2021 by Alirio Buenrostro MD at [facility] Right: Shoulder [employer] [id number] 11/19/2025 0 / / [id number] Inhance Shoulder System Short Stem 29sqz18va Large Implanted:Qty: 1 on 05/23/2021 by Alirio Buenrostro MD at [facility] Right: Shoulder [employer] 11/19/2025 5199-03-25 0 / / [id number] Inhance Shoulder System Humeral Head 48.5mmx 17mm Implanted:Qty: 1 on 05/23/2021 by Alirio Buenrostro MD at [facility] Right: Shoulder [employer] 10/19/2025 0 / / [id number] Procedures Procedure Name Priority Date/Time Associated Diagnosis Comments EGFR Routine 10/08/2021 12:29 PM CDT Shoulder arthritis Preoperative testing POCT HEMOGLOBIN A1C Routine 10/08/2021 1 2:22 PM CDT from Last 3 Months or Most Recently Relevant to Health Maintenance Results * eGFR (10/08/2021 12:29 PM CDT) eGFR >90 90 - 130 mL/min/1. 73 m2 [facility] Comment: Interpretive Data Reference Interval Normal >/= [...] ORDERABLES F inal Result Performing Organization Address [facility] de Phone Number [facility] [place] [address] * POCT hemoglobin A1c (10/08/2021 12:22 PM CDT) [facility] Hgb A1C, POC 5.6 4.0 - 5.6 % [facility] Est Average Gluc POC 114 mg/dL [facility] Comment: The ADA recommends reporting an estimated Average Glucose (eAG) with all Hemoglobin A1c results using the equation derived from a study of 507 normal and diabetic adults. Minority populations were underrepresented and children were not included. (Diabetes Care 31:6348-9344, 2008). The eAG is not equivalent to a fasting glucose. Blood 10/08/2021 12:2 2 PM CDT 10/08/2021 12:22 PM CDT Alirio Buenrostro MD POINT OF CARE TEST ORD ERABLES Final Result Performing Organization Address [facility] Co de Phone Number [facility] [place] [address] from Last 3 Months or Most Recently Relevant to Health Maintenance Insurance [facility] [place] HMO [facility] PPO [place] [employer] Advance Directives For more information, please contact: [phone] * Full Code (Latest Code Status on File) Date Activated Date Inactivated Comments 10/21/2021 11:09 AM 10/21/2021 10:54 PM * Full Code Date Activated Date Inactivated Comments 05/23/2021 12:26 PM 05/23/2021 11:19 PM Care Teams Embedded Nurse Relationship Specialty Start Date End Date Mehnaz Freed MD [address] [place] [address] PCP - General 09/16/16
--- OUTSIDE RECORDS SUMMARY | 2025-03-14 08:30 | XMS_ITS | Clinical Summary ---
Author Organization [facility] Address [address] [place] [address] Care Team Providers Care Manager Of Housekeeping Name Role Phone Garfield Parisi MD Unavailable [phone] Mehnaz Freed MD Primary Care Provider [phone] Source Comments [facility],non-owned Affiliates and Associated Physician Practices is amultiple site organization consisting of ambulatory clinics and hospital sitesin [place], [place], [place] and [place]. This disclosure is being madepursuant to the Care Everywhere program and may not contain all information available regarding this patient. Last updated 17.[facility] [employer] Allergies No known active allergies Medications * [...] on file Legal Sex Male 11:13 AM SECTION GANG Gender Identity Not on file Sexual Orientation Not on file Last Filed Vital Signs Vital Sign Reading Time Taken Comments Blood Pressure - - Pulse - - Temperature - - Respiratory Rate - - Oxygen Saturation - - Inhaled Oxygen Concentration - - Weight 124.7 kg (275 lb) 04/10/2013 3:13 PM SECTION GANG Height 182.9 cm (6') 04/10/2013 3:13 PM SECTION GANG Body Mass Index 37.3 04/10/2013 3:13 PM SECTION GANG Plan of Treatment Health Maintenance Due Date [...] age to complete this topic Care Teams Manager Of Housekeeping Relationship Specialty [place] [address] [place] [address] PCP - General Internal Medicine 04/10/13 [place] [address] [place] [address] Orthopedic Surgery 04/10/13
--- OUTSIDE RECORDS SUMMARY | 2025-03-14 08:30 | XMS_ITS | Patient Health Record ---
Author Organization [facility] [employer] Address [address] [place] [address] Care Team Providers Care Data Warehousing Specialist Name Role Phone Abdiaziz ZAMBRANO, [facility] Primary Care Provider Cele Chinchilla Unavailable [phone] Allergies No Known Allergies Reason For Referral No Information Medications Medication SIG (Take, Route, Frequency, Duration) Notes Start Date End Date Status Triamterene-HCTZ 37.5-25 MG Tablet Oral; Duration: 30 Days Active amLODIPine Besylate 10 MG Tablet Oral 08/03/2023 Active Glimepiride 2 MG Tablet Oral 08/03/2023 Active PRALUENT PEN 75 mg/mL Solution Pen-injector Subcutaneous *Reorder from Root[employer] for eRx and Interaction Alerts* 08/03/2023 Not-Taking [...] 12/02/2022 Encounters Encounter Location Date Provider Diagnosis [facility] [employer] [facility] [address] [place] [address] 04/21/2024 Cele Dooley Plan Of Treatment No Information Insurance Providers Payer Name Payer Address Payer Phone Subscriber Number Group Number Insured Name Patient Relationship to Insured Coverage Start Date Coverage End Date [facility] [address] [address] [place] [address] [id number] LESTER , GAUDENCIO Spouse - patient is the spouse of the insured Medical (General) History Medical History History ICD Code Problems: Mixed anxiety and depressive d isorder Opioid withdrawal Primary insomnia , Surgical History Surgery Date(Month/Year) Other
--- OUTSIDE RECORDS SUMMARY | 2025-03-14 08:30 | XMS_ITS | Encounter Summary ---
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
--- OUTSIDE RECORDS SUMMARY | 2025-03-14 08:30 | XMS_ITS | Clinical Summary ---
Author Organization [facility] Address [address] [place] [address] Care Team Providers Care Repairer Maintenance Building Name Role Phone None, Provider Primary Care Provider Unavaila ble Encounters Date Type Department Care Team Description 03/07/2025 11:28 AM SHANK TAPPER - 03/07/2025 11:59 PM SHANK TAPPER Hospital Encounter [facility] Radiation Oncology [address] [address] Robby Berman MD Discharge Disposition: Home or Self Care (Routine Discharge) 03/07/2025 Travel 02/21/2025 10:30 AM SHANK TAPPER - 02/21/2025 11:59 PM SHANK TAPPER Hospital Encounter [facility] [place] [facility] Radiation [address] [address] Robby Berman MD Discharge Disposition: Home or [...] Comments Blood Pressure 152/82 02/20/2023 9:05 PM SHANK TAPPER Pulse 92 02/20/2023 9:05 PM SHANK TAPPER Temperature 36.7 C (98 F) 02/20/2023 7:47 PM SHANK TAPPER Respiratory Rate 18 02/20/2023 9:05 PM SHANK TAPPER Oxygen Saturation 97% 02/20/2023 9:05 PM SHANK TAPPER Inhaled Oxygen Concentration - - Weight 129.3 kg (285 lb) 02/20/2023 7:48 PM SHANK TAPPER Height 182.9 cm (6') 02/20/2023 7:48 PM SHANK TAPPER Body Mass Index 38.65 02/20/2023 7:48 PM SHANK TAPPER Plan of Treatment Health Maintenance Due Date [...] [employer] Care Teams Repairer Maintenance Building Relationship Specialty Start Date End Date None, Provider, PCP - General UNKNOWN PHYSICIAN SPECIALTY 02/20/23
--- NOTE | 2025-03-14 08:40 | ED.GENADULT ---
HPI - General Adult General Chief complaint: GI Bleed Stated complaint: Bleeding colonstomy Time Seen by Provider: 03/14/25 08:35 History of Present Illness HPI narrative: 64-year-old male presenting to the emergency department for evaluation for worsening rectal bleeding. Patient did have a colonoscopy and biopsy yesterday did have some bleeding immediately after the procedure. Patient has had 5 large bloody bowel movements this morning. Patient does describe some abdominal discomfort and associated nausea without vomiting. Patient did provide photos of the bloody bowel movements. Patient did have another bloody bowel movement in the emergency department. Patient appears to be passing mary blood with out stool. Related Data Home Medications ?Medication ?Instructions ?Recorded ?Confirmed ?Last Taken ?Type lisinopril 20 1 tablet PO BID 01/22/20 03/14/25 Unknown History mg-hydrochlorothiazide 12.5 mg tablet metformin 500 mg tablet 1,000 mg PO BID 07/22/20 03/14/25 Unknown History alirocumab 75 mg/mL subcutaneous 75 mg subcut Q15D 11/30/22 03/14/25 Unknown History pen injector (Praluent Pen) amlodipine 10 mg tablet 10 mg PO DAILY 11/30/22 03/14/25 03/14/25 History duloxetine 60 mg capsule,delayed 60 mg PO BID 11/30/22 03/14/25 Unknown History release glimepiride 2 mg tablet 2 mg PO DAILY 11/30/22 03/14/25 03/14/25 History doxycycline hyclate 100 mg tablet 100 mg PO DAILY 02/27/25 03/14/25 03/12/25 History gabapentin 300 mg capsule 300 mg PO Q12H PRN pain 02/27/25 03/14/25 03/12/25 History losartan 100 1 tablet PO DAILY 02/27/25 03/14/25 03/14/25 History mg-hydrochlorothiazide 25 mg tablet pantoprazole 40 mg tablet,delayed 40 mg PO DAILY 02/27/25 03/14/25 Unknown History release triamterene 37.5 1 tablet PO DAILY 02/27/25 03/14/25 03/14/25 History mg-hydrochlorothiazide 25 mg tablet Allergies Allergy/AdvReac Type Severity Reaction Status Date / Time shellfish derived Allergy Mild Itching Verified 03/14/25 09:25 SHELLFISH Allergy Unknown ITCHING Uncoded 03/12/25 10:44 AND TINGLING Review of Systems Review of Systems: All systems reviewed & are unremarkable except as noted in HPI and below PMFSH Past Medical History Medical History (Updated 03/14/25 @ 10:09 by Chema Pennington MD) Post-polypectomy bleeding Arthritis of ankle, right, degenerative Diverticula of intestine Colon cancer screening Diarrhea LLQ abdominal pain Surgical History Surgical History History of hernia surgery History of knee replacement Family History Family History Other Family history of lung cancer Family history of type 2 diabetes mellitus Social History Social History Smoking status: Never smoker Alcohol intake: current Drinks per week: 2 Substance use: never Substance use type: does not use Living arrangements: with family Spiritual care concerns: No Exam Narrative: APPEARANCE: Well appearing, no pain, no distress, well-nourished. HEAD: normocephalic, atraumatic. EYES: PERRLA/EOMI, conjunctivae clear. NOSE: Normal no drainage EARS:TMS clear with good light reflex. THROAT: Pharynx clear, no exudate. NECK: Supple. No adenopathy, no masses. RESPIRATORY: Airway patent, respirations nonlabored. Clear to auscultation bilaterally, no rales, rhonchi, wheezing. CARDIOVASCULAR: Regular rate and rhythm without murmurs rubs or gallops. ABDOMINAL: Soft, nontender, nondistended, normal bowel sounds MUSCULOSKELETAL: Moves all extremities. Strength/ROM intact, No edema, No calf tenderness. NEURO: Alert. Cranial nerves II through XII intact. Good gait. Good coordination SKIN: Warm, dry. Normal Color Rectal exam was deferred since patient is going to the GI lab. Patient does have confirmed hematochezia Course Vital Signs Vital signs: Vital Signs Temperature 96.6 F L 03/14/25 09:30 Pulse Rate 79 03/14/25 09:30 Respiratory Rate 21 H 03/14/25 09:30 Blood Pressure 148/84 H 03/14/25 09:30 Pulse Oximetry 97 03/14/25 09:30 Oxygen Delivery Room Air 03/14/25 09:30 Temperature 96.6 F L 03/14/25 09:30 Pulse Rate 79 03/14/25 10:28 Respiratory Rate 20 03/14/25 10:28 Blood Pressure 111/68 03/14/25 10:28 Pulse Oximetry 100 03/14/25 10:28 Oxygen Delivery Room Air 03/14/25 10:28 [facility] Narrative Medical decision making narrative: 64-year-old male presented to the emergency department for evaluation for worsening rectal bleeding. Patient did have a biopsy yesterday during his colonoscopy and has had worsening bleeding this morning. GI lab was notified of his bleeding and patient will be transferred to GI lab for emergency department. Baseline labs were ordered. Patient was started on IV fluids including a L lactated Ringer's. Patient was complaining of some nausea and diffuse abdominal discomfort. Patient was treated with 4 mg IV Zofran at 0.5 mg of IV Dilaudid. Patient and family were updated on the plan for repeat colonoscopy. Differential Diagnosis Differential Diagnosis: GI bleed, anemia, thrombocytopenia Lab Data [facility] Lab Attestation statement: I personally reviewed the patient's lab results. 03/14/25 08:51 03/14/25 08:51 Labs: Lab Results 03/14/25 03/14/25 Range/Units 08:51 09:15 WBC 18.7 H (4.5-10.0) K/mm3 RBC 4.73 (4.6-6.20) M/mm3 Hgb 15.4 (14.0-18.0) g/dL Hct 45.4 (42.0-52.0) % MCV 96.0 (80-100) fl MCH 32.6 (26-34) pg MCHC 33.9 (32-36) g/dl RDW 12.6 (11.5-14.5) % Plt Count 304 (150-375) k/mm3 MPV 10.3 (7.4-10.4) fl Immature Gran % (Auto) 1.0 H (0-0.5) % Neut % (Auto) 75.7 H (45.5-73.1) % Lymph % (Auto) 14.2 L (18.3-44.2) % Norton % (Auto) 8.8 H (2.6-8.5) % Eos % (Auto) 0.1 (0-4.4) % Baso % (Auto) 0.2 (0.2-1.2) % Lymph # (Auto) 2.65 (0.9-3.2) K/mm3 Norton # (Auto) 1.7 H (0.1-0.6) K/mm3 Eos # (Auto) 0.0 (0-0.3) K/mm3 Baso # (Auto) 0.0 (0.0-0.1) K/mm3 Abs Immat Gran (auto) 0.19 H (0.00-0.031) K/mm3 Absolute Neuts (auto) 14.2 H (1.3-6.7) K/mm3 Absolute Nucleated RBC 0.000 (0.0-0.012) K/mm3 Nucleated RBC % 0.0 (0.0-0.2) % PT 13.9 (11.1-14.7) Seconds INR 1.1 APTT 25.9 (22.3-36.8) Seconds Sodium 134 L (137-145) mmol/L Potassium 4.5 (3.4-5.0) mmol/L Chloride 102 (98-107) mmol/L Carbon Dioxide 21 L (22-30) mmol/L Anion Gap 11 (4-12) mmol/L BUN 26 H (9-20) mg/dL Creatinine 1.16 (0.7-1.3) mg/dL Estim Creat Clear Calc Not Reportable Estimated GFR > 60 (59 - ) Glucose 149 H (65-110) mg/dL POC Capillary Glucose 171 H (65-105) mg/dl Calcium 8.6 (8.4-10.2) mg/dL Total Bilirubin 0.7 (0.2-1.3) mg/dL AST 39 (17-59) U/L ALT 47 (6-50) U/L Alkaline Phosphatase 89 (38-126) U/L Total Protein 7.4 (6.3-8.2) g/dL Albumin 4.4 (3.5-5.1) g/dL Blood Type O Positive Antibody Screen Negative Discharge Plan Discharge Clinical Impression: Hematochezia Patient Disposition: Still a Patient Condition: Serious
[2025-03-14] MEDS: ONDANSETRON INJ 4 MG/2 ML VIAL IV PUSH (08:53)
[2025-03-14] MEDS: SODIUM CHLORIDE 0.9% IV 1,000 ML 999 ML IV CONT (08:53)
[2025-03-14] MEDS: HYDROmorphone HCL INJ (*CRX) 1 MG/ML SYR 0.5 MG IV PUSH (08:54)
[2025-03-14 09:00] LABS: Hematocrit 45.4 % (42.0-52.0); Hemoglobin 15.4 g/dL (14.0-18.0); Immature Granulocyte Percent A 1.0 % (0-0.5); Lymphocytes Absolute Auto 2.65 K/mm3 (0.9-3.2); Mean Corpuscular HGB Conc 33.9 g/dl (32-36); Mean Corpuscular Hemoglobin 32.6 pg (26-34); Mean Corpuscular Volume 96.0 fl (80-100); Nucleated Red Blood Cells Absolute Auto 0.000 K/mm3 (0.0-0.012); Nucleated Red Blood Cells Perc 0.0 % (0.0-0.2); Platelet Count Result 304 k/mm3 (150-375); Red Blood Count 4.73 M/mm3 (4.6-6.20); White Blood Count 18.7 K/mm3 (4.5-10.0)
[2025-03-14 09:13] LABS: INR 1.1; Prothrombin Time 13.9 Seconds (11.1-14.7)
[2025-03-14 09:14] LABS: Partial Thromboplastin Time 25.9 Seconds (22.3-36.8)
[2025-03-14 09:20] LABS: Alanine Aminotransferase 47 U/L (6-50); Albumin Level 4.4 g/dL (3.5-5.1); Alkaline Phosphatase 89 U/L (38-126); Anion Gap 11 mmol/L (4-12); Aspartate Amino Transferase 39 U/L (17-59); Bilirubin,Total 0.7 mg/dL (0.2-1.3); Blood Urea Nitrogen 26 mg/dL (9-20); Calcium 8.6 mg/dL (8.4-10.2); Carbon Dioxide 21 mmol/L (22-30); Chloride 102 mmol/L (98-107); Estimated Glomerular Filt Rate > 60; Glucose 149 mg/dL (65-110); Potassium 4.5 mmol/L (3.4-5.0); Sodium 134 mmol/L (137-145); Total Protein 7.4 g/dL (6.3-8.2)
[2025-03-14 09:30] VITALS: BP 148/84; PULSE 79; RESP 21; TEMP 35.9; O2SAT 97; BMI 37.3
[2025-03-14] MEDS: LACTATED RINGERS 1,000 ML 150 ML IV CONT (09:40)
--- NOTE | 2025-03-14 09:41 | WPDANESEPPF ---
Anes - Initial Pre Proc Eval Procedure: Operation Date: 03/14/25 09:00 Proposed Procedures p Diagnostic Colonoscopy - Chema Pennington MD Date/Time: 03/14/25 09:41 Surgeon: Chema Pennington MD Pre Op Diagnosis: Bleeding colonstomy Patient Data Age: 64 Gender: M Height: 1.83 m Weight: 125 kg Last Vital Signs Temp 35.9 C L 03/14/25 09:30 Pulse 79 03/14/25 09:30 Resp 21 H 03/14/25 09:30 BP 148/84 H 03/14/25 09:30 Pulse Ox 97 03/14/25 09:30 O2 Del Method Room Air 03/14/25 09:30 Allergies Allergy/AdvReac Type Severity Reaction Status Date / Time shellfish derived Allergy Mild Itching Verified 03/14/25 09:25 SHELLFISH Allergy Unknown ITCHING Uncoded 03/12/25 10:44 AND TINGLING Home Medications ?Medication ?Instructions ?Recorded ?Confirmed ?Type lisinopril 20 1 tablet PO BID 01/22/20 03/14/25 History mg-hydrochlorothiazide 12.5 mg tablet metformin 500 mg tablet 1,000 mg PO BID 07/22/20 03/14/25 History alirocumab 75 mg/mL subcutaneous 75 mg subcut Q15D 11/30/22 03/14/25 History pen injector (Praluent Pen) amlodipine 10 mg tablet 10 mg PO DAILY 11/30/22 03/14/25 History duloxetine 60 mg capsule,delayed 60 mg PO BID 11/30/22 03/14/25 History release fluticasone propionate 50 2 spray intranasal BID 2 weeks #16 11/30/22 03/14/25 Rx mcg/actuation nasal grams spray,suspension (Flonase Allergy Relief) glimepiride 2 mg tablet 2 mg PO DAILY 11/30/22 03/14/25 History methocarbamol 500 mg tablet 1,000 mg (2 x 500 mg) PO Q6H PRN 11/30/22 03/14/25 Rx muscle pain #40 tabs doxycycline hyclate 100 mg tablet 100 mg PO DAILY 02/27/25 03/14/25 History gabapentin 300 mg capsule 300 mg PO Q12H PRN pain 02/27/25 03/14/25 History losartan 100 1 tablet PO DAILY 02/27/25 03/14/25 History mg-hydrochlorothiazide 25 mg tablet pantoprazole 40 mg tablet,delayed 40 mg PO DAILY 02/27/25 03/14/25 History release triamterene 37.5 1 tablet PO DAILY 02/27/25 03/14/25 History mg-hydrochlorothiazide 25 mg tablet Laboratory Tests 03/14/25 03/14/25 08:51 09:15 WBC 18.7 H K/mm3 (4.5-10.0) RBC 4.73 M/mm3 (4.6-6.20) Hgb 15.4 g/dL (14.0-18.0) Hct 45.4 % (42.0-52.0) MCV 96.0 fl (80-100) MCH 32.6 pg (26-34) MCHC 33.9 g/dl (32-36) RDW 12.6 % (11.5-14.5) Plt Count 304 k/mm3 (150-375) MPV 10.3 fl (7.4-10.4) Immature Gran % (Auto) 1.0 H % (0-0.5) Neut % (Auto) 75.7 H % (45.5-73.1) Lymph % (Auto) 14.2 L % (18.3-44.2) Greene % (Auto) 8.8 H % (2.6-8.5) Eos % (Auto) 0.1 % (0-4.4) Baso % (Auto) 0.2 % (0.2-1.2) Lymph # (Auto) 2.65 K/mm3 (0.9-3.2) Greene # (Auto) 1.7 H K/mm3 (0.1-0.6) Eos # (Auto) 0.0 K/mm3 (0-0.3) Baso # (Auto) 0.0 K/mm3 (0.0-0.1) Abs Immat Gran (auto) 0.19 H K/mm3 (0.00-0.031) Absolute Neuts (auto) 14.2 H K/mm3 (1.3-6.7) Absolute Nucleated RBC 0.000 K/mm3 (0.0-0.012) Nucleated RBC % 0.0 % (0.0-0.2) PT 13.9 Seconds (11.1-14.7) INR 1.1 APTT 25.9 Seconds (22.3-36.8) Sodium 134 L mmol/L (137-145) Potassium 4.5 mmol/L (3.4-5.0) Chloride 102 mmol/L (98-107) Carbon Dioxide 21 L mmol/L (22-30) Anion Gap 11 mmol/L (4-12) BUN 26 H mg/dL (9-20) Creatinine 1.16 mg/dL (0.7-1.3) Estim Creat Clear Calc Not Reportable Estimated GFR > 60 (59 - ) Glucose 149 H mg/dL (65-110) POC Capillary Glucose 171 H mg/dl (65-105) Calcium 8.6 mg/dL (8.4-10.2) Total Bilirubin 0.7 mg/dL (0.2-1.3) AST 39 U/L (17-59) ALT 47 U/L (6-50) Alkaline Phosphatase 89 U/L (38-126) Total Protein 7.4 g/dL (6.3-8.2) Albumin 4.4 g/dL (3.5-5.1) Patient hx anesthesia problems: none Family hx anesthesia problems: none Results Review: All pre-operative results and documents have been reviewed as part of the pre-operative evaluation. [facility] Past Medical History Medical History Arthritis of ankle, right, degenerative Diverticula of intestine Colon cancer screening Diarrhea LLQ abdominal pain Surgical History Surgical History History of hernia surgery History of knee replacement Family History Family History Other Family history of lung cancer Family history of type 2 diabetes mellitus Social History Social History Smoking status: Never smoker Alcohol intake: current Drinks per week: 2 Substance use: never Substance use type: does not use Living arrangements: with family Spiritual care concerns: No Anes - Eval Final PreProcedure Day of Procedure 03/14/25 09:41 Patient weight: obese Heart: regular rate and rhythm Lungs: clear to auscultation Airway: Mallampati scale class II Neurological: alert and oriented Last oral intake: 4 hours ASA classification: III Emergent: yes Anesthetic plan: proceed Anesthesia type and monitoring: general GIVS and standard monitoring Results Review: All pre-operative results and documents have been reviewed as part of the pre-operative evaluation. Informed Consent: The patient's anesthetic plan and its attendant risks and benefits were discussed with the patient/family/POA. Questions were solicited and answers provided to the satisfaction of the patient/family/POA.
--- NOTE | 2025-03-14 09:47 | WPDGICN ---
Assessment and Plan Assessment and plan (1) Hematochezia: Code(s): K92.1 - Melena Status: Acute (2) Post-polypectomy bleeding: Status: Acute Assessment and Plan: will do urgent colonoscopy GI Consult Note Consult date/time: 03/14/25 09:47 Reason for consult: post-polypectomy bleeding HPI: Prieto Ivan is a 64 year old male who had colonoscopy with polypectomy using snare yesterday then noted large amount of brbpr and came to ER. Hgb 15 Review of Systems Constitutional: Constitutional: Denies chills Eyes: Eyes: Denies blurry vision ENT: Reports Normal hearing present, Denies headache(s) and Denies neck pain Cardiovascular: Cardiovascular: Denies chest pain and Denies dyspnea Respiratory: Respiratory: Denies dyspnea Gastrointestinal: Gastrointestinal: Reports no additional gastrointestinal complaints Genitourinary: Genitourinary: Denies dysuria Musculoskeletal: Musculoskeletal: Denies neck pain Integumentary/Breasts: Skin/Breast: Denies dry skin Neurologic: Reports Normal hearing present and Denies weakness [facility] Past Medical History Medical History (Updated 03/14/25 @ 10:09 by Chema Pennington MD) Post-polypectomy bleeding Arthritis of ankle, right, degenerative Diverticula of intestine Colon cancer screening Diarrhea LLQ abdominal pain Surgical History Surgical History History of hernia surgery History of knee replacement Family History Family History Other Family history of lung cancer Family history of type 2 diabetes mellitus Social History Social History Smoking status: Never smoker Alcohol intake: current Drinks per week: 2 Substance use: never Substance use type: does not use Living arrangements: with family Spiritual care concerns: No Meds Home Medications and Allergies Home Medications ?Medication ?Instructions ?Recorded ?Confirmed ?Type lisinopril 20 1 tablet PO BID 01/22/20 03/14/25 History mg-hydrochlorothiazide 12.5 mg tablet metformin 500 mg tablet 1,000 mg PO BID 07/22/20 03/14/25 History alirocumab 75 mg/mL subcutaneous 75 mg subcut Q15D 11/30/22 03/14/25 History pen injector (Praluent Pen) amlodipine 10 mg tablet 10 mg PO DAILY 11/30/22 03/14/25 History duloxetine 60 mg capsule,delayed 60 mg PO BID 11/30/22 03/14/25 History release fluticasone propionate 50 2 spray intranasal BID 2 weeks #16 11/30/22 03/14/25 Rx mcg/actuation nasal grams spray,suspension (Flonase Allergy Relief) glimepiride 2 mg tablet 2 mg PO DAILY 11/30/22 03/14/25 History methocarbamol 500 mg tablet 1,000 mg (2 x 500 mg) PO Q6H PRN 11/30/22 03/14/25 Rx muscle pain #40 tabs doxycycline hyclate 100 mg tablet 100 mg PO DAILY 02/27/25 03/14/25 History gabapentin 300 mg capsule 300 mg PO Q12H PRN pain 02/27/25 03/14/25 History losartan 100 1 tablet PO DAILY 02/27/25 03/14/25 History mg-hydrochlorothiazide 25 mg tablet pantoprazole 40 mg tablet,delayed 40 mg PO DAILY 02/27/25 03/14/25 History release triamterene 37.5 1 tablet PO DAILY 02/27/25 03/14/25 History mg-hydrochlorothiazide 25 mg tablet Allergies Allergy/AdvReac Type Severity Reaction Status Date / Time shellfish derived Allergy Mild Itching Verified 03/14/25 09:25 SHELLFISH Allergy Unknown ITCHING Uncoded 03/12/25 10:44 AND TINGLING Vital Signs Vital Signs - 24 hr 03/14/25 09:30 Temperature 96.6 F L Pulse Rate 79 Respiratory Rate 21 H Blood Pressure 148/84 H Pulse Oximetry 97 Oxygen Delivery Room Air Exam Const: General: comfortable and no acute distress HENMT: Face/Nose/Sinus: Normal nares present Eyes: General: appearance normal, both eyes and all related structures Neck: Neck: no JVD Resp: Auscultation: clear to auscultation bilaterally Cardio: Rate: regular rate Rhythm: regular rhythm GI: Inspection: non-distended GI Palp: Yes Soft to palpation Skin: General skin exam: normal color Neuro: Speech: normal speech Extrem: General: normal to inspection Psych: Mental Status: mental status grossly normal Results Labs 03/14/25 08:51 03/14/25 08:51 Labs: Short CBC 03/14/25 Range/Units 08:51 WBC 18.7 H (4.5-10.0) K/mm3 Hgb 15.4 (14.0-18.0) g/dL Hct 45.4 (42.0-52.0) % Plt Count 304 (150-375) k/mm3 BMP 03/14/25 08:51 Sodium 134 L Potassium 4.5 Chloride 102 Carbon Dioxide 21 L BUN 26 H Creatinine 1.16 Glucose 149 H Calcium 8.6 Liver Function 03/14/25 Range/Units 08:51 Total Bilirubin 0.7 (0.2-1.3) mg/dL AST 39 (17-59) U/L ALT 47 (6-50) U/L Alkaline Phosphatase 89 (38-126) U/L Albumin 4.4 (3.5-5.1) g/dL
--- NOTE | 2025-03-14 09:51 | P.PNAN_ITS ---
Anes - Eval Final PreProcedure Day of Procedure 03/14/25 09:51 Patient weight: obese Heart: regular rate and rhythm Lungs: clear to auscultation Airway: Mallampati scale class II Neurological: alert and oriented Last oral intake: >/= 8 hours ASA classification: III Emergent: yes Anesthetic plan: proceed Anesthesia type and monitoring: general GIVS and standard monitoring Other findings: exam per BK Results Review: All pre-operative results and documents have been reviewed as part of the pre- operative evaluation. Informed Consent: The patient's anesthetic plan and its attendant risks and benefits were discussed with the patient/family/POA. Questions were solicited and answers provided to the satisfaction of the patient/family/POA.
[2025-03-14 10:08] VITALS: BP 124/74; PULSE 84; RESP 15; O2SAT 96
[2025-03-14 10:18] VITALS: BP 125/59; PULSE 92; RESP 15; O2SAT 98
[2025-03-14 10:28] VITALS: BP 111/68; PULSE 79; RESP 20; O2SAT 100
== END 2025-03-14 10:41 | disposition home or self-care (01) ==
LOC: ANHED 08:53 → ANHSURGERY 09:02
PROVIDERS: Emergency Provider Emergency Medicine; PCP Internal Medicine; Visit Provider Internal Medicine Gastroenterology
PROC: 0DJD8ZZ Inspection of Lower Intestinal Tract, Via Natural or Artificial Opening Endoscopic (ICD-10-PCS; CPT 45378; principal; 2025-03-14 09:00)
DX: K92.1 Melena (principal); K91.840 Postprocedural hemorrhage of a digestive system organ or structure following a digestive system procedure; K92.2 Gastrointestinal hemorrhage, unspecified; K63.3 Ulcer of intestine; Z83.3 Family history of diabetes mellitus
CPT/HCPCS: 45378; 36415; 80053; 82948; 85025; 85610; 85730; 86850; 86900; 86901; 96374; 96375; 99285; J1171; J2405; J2704; J7030; J7120